=== PATIENT | male | born 1955 | race Asian ===

== ENCOUNTER 2017-01-13 19:59 | Emergency (ER) | payer OTHER, MEDICAID ==
--- NOTE | 2017-01-13 20:10 | EDPHY ---
H & P Source: Patient Exam Limitations: Clinical condition - Personal History Tetanus Vaccine Date: 2012 - Medical/Surgical History Hx Asthma: No Hx Chronic Respiratory Disease: No Hx Diabetes: No Hx Cardiac Disease: No Hx Renal Disease: No Hx Cirrhosis: No Hx Alcoholism: No Hx HIV/AIDS: No Hx Splenectomy or Spleen Trauma: No Other PMH: PMH- epilepsy, HTN. PSH- appy - Social History Smoking Status: Never smoked Time Seen by Provider: 01/13/17 20:06 HPI/ROS: CHIEF COMPLAINT: Altered mental status HISTORY OF PRESENT ILLNESS: The patient presents to the ED with altered mental status. The patient reportedly was found wandering around upper floor of his apartment complex. The patient has a history of developmental delay and seizure disorder. It is uncertain whether the patient had a seizure or not. It is uncertain what the patient is normal neurologic baseline is. In the ED, the patient is confused and certainly appears to be postictal. In reviewing his medications he appears to be on Dilantin, Depakote and possibly Keppra. The patient reportedly lives alone in apartment. REVIEW OF SYSTEMS: A comprehensive 10 point review of systems is unobtainable secondary to altered mental status (Danial Higuera) - Physical Exam Exam: General Appearance: Obese male, no acute distress Eyes: Pupils equal and round no pallor or injection ENT, Mouth: Mucous membranes moist, no obvious tongue bite or abrasion Respiratory: There are no retractions, lungs are clear to auscultation Cardiovascular: Regular rate and rhythm Gastrointestinal: Abdomen is soft and nontender, no masses, bowel sounds normal Neurological: Alert and oriented x1, 5/5 strength all 4 extremities, no gross cranial nerve deficit Skin: Warm and dry, no rashes Musculoskeletal: Neck is supple nontender Extremities: symmetrical, full range of motion (Danial Higuera) Constitutional: Initial Vital Signs Temperature (C) 37 C 01/13/17 20:07 Heart Rate 95 01/13/17 20:07 Respiratory Rate 16 01/13/17 20:07 Blood Pressure 157/91 H 01/13/17 20:07 O2 Sat (%) 98 01/13/17 20:07 O2 Delivery Mode Room Air Allergies/Adverse Reactions: No Known Allergies Allergy (Unverified 01/13/17 20:06) Home Medications: Medication Instructions Recorded Divalproex ER [Depakote ER 500 MG 3 tab PO BID 04/06/12 (*)] Lisinopril/Hctz 10/12.5 mg 1 ea PO DAILY 04/06/12 [Zestoretic/Prinzide 10/12.5MG (*)] Phenytoin Sodium Extended 200 mg PO HS 04/06/12 [Dilantin (*)] Phenytoin Sodium Extended 300 mg PO DAILY10 04/06/12 [Dilantin (*)] Multivitamins [Multivitamin (*)] 1 each PO DAILY 05/20/15 Simvastatin [Zocor] 20 mg PO HS 05/20/15 levETIRAcetam [Keppra 500 mg (*)] 250 mg PO BID 05/20/15 Ibuprofen [Motrin (*)] 400 mg PO Q6 PRN #0 tab 05/23/15 oxyCODONE/APAP 5/325 [Percocet 1 tab PO Q4 PRN #0 tab 05/23/15 5/325 (*)] Medical Decision Making - Diagnostics EKG Interpretation: EKG: Complete interpretation has been separately recorded in the [facility] archive. Summary impression: Sinus tachycardia, rate 101 (Danial Higuera) ED Course/Re-evaluation: The patient presents to the ED with altered mental status and a history of seizure disorder. The patient certainly appears to be postictal. The patient had an IV established. He was placed on a third helper. I reviewed the patient's past medical records. The patient had a normal fingerstick blood glucose prior to arrival. I see no obvious signs of external head trauma. I reviewed the patient's past medical records. The patient was hospitalized in 2014 after mechanical fall in his apartment. The CT scan of the patient's head demonstrates no evidence of obvious intracranial hemorrhage. The patient's laboratory studies are unremarkable. He does have slightly low anticonvulsant levels. I re-evaluated the patient at 9:00 p.m.. His mental status is improving however he still appears to be mildly postictal. The plan will be for continued observation in the ED. The patient returns to his normal neurologic baseline I do feel that he can safely be discharged home. The patient will be turned over to Dr. Shady Batres 9:00 p.m.. (Danial Higuera) 10:15 p.m. the patient is back to his baseline. He is talking. He is eating. He is receiving a Dilantin load. He states that he takes his medications regularly. He has a pill counter on the counter. He is eager to go home and states that he feels completely safe. When his Dilantin load is finished we will discharge him home. He agrees to take his medications faithfully. (Shady Batres) Differential Diagnosis: Partial list of the Differential diagnosis considered include but were not limited to; seizure, status epilepticus and although unlikely based on the history and physical exam, I also considered hemorrhage, trauma, infection. (Shady Batres) - Data Points Laboratory Results: Laboratory Results 01/13/17 20:00 01/13/17 20:00 Medications Given: Discontinued Medications Phenytoin Sodium 1,000 mg/ (Sodium Chloride) 120 mls @ 144 mls/hr IV ONCE ONE Stop: 01/13/17 21:47 Last Admin: 01/13/17 21:26 Dose: 120 mls Departure - Departure Disposition: Home, Routine, Self-Care Clinical Impression: Seizure Condition: Fair Instructions: Epilepsy (ED) Referrals: Jose Brunner DO [Medical Doctor] - As per Instructions
--- NOTE | 2017-01-13 20:14 | CPEKG ---
Heart Rate: 101 RR Interval: 594 P-R Interval: 200 QRSD Interval: 90 QT Interval: 364 QTC Interval: 472 P [place]: 38 QRS [place]: 27 T Wave [place]: 21 EKG Severity - OTHERWISE NORMAL ECG - EKG Impression: SINUS TACHYCARDIA Electronically Signed By: Danial Higuera 13-Jan-2017 20:16:52
[2017-01-13 20:16] LABS: % IMMATURE GRANULYOCYTES 0.2 % (0.0-1.1); ABSOLUTE IMMATURE GRANULOCYTES 0.03 10^3/uL (0.00-0.10); ADD DIFF? NO; ADD MORPH? NO; ADD SCAN? NO; ATYPICAL LYMPHOCYTE FLAG 0 (0-99); FRAGMENT RBC FLAG 0 (0-99); HEMATOCRIT 41.7 % (40.0-51.0); HEMOGLOBIN 14.6 g/dL (13.7-17.5); LEFT SHIFT FLG 0 (0-99); LIPEMIA HEMOLYSIS FLAG 90 (0-99); MEAN CELL HEMOGLOBIN 32.2 pg (27.9-34.1); MEAN CELL VOLUME 91.9 fL (81.5-99.8); PLATELET CLUMPS FLAG 0 (0-99); PLATELET COUNT 190 10^3/uL (150-400); RED BLOOD CELL COUNT 4.54 10^6/uL (4.40-6.38); RED CELL DISTRIBUTION WIDTH 13.3 % (11.5-15.2)
[2017-01-13 20:38] LABS: ANION GAP 15 mEq/L (8-16); CALCIUM 9.4 mg/dL (8.5-10.4); CARBON DIOXIDE 22 mEq/l (22-31); CHLORIDE 100 mEq/L (97-110); CREATININE 0.7 mg/dL (0.7-1.3); GLOMERULAR FILTRATION RATE > 60; GLUCOSE 128 mg/dL (70-100); POTASSIUM 3.4 mEq/L (3.5-5.2); SODIUM 137 mEq/L (134-144)
[2017-01-13] MEDS ORDERED: PHENYTOIN SODIUM 1,000 MG in NS 100 ML IV ONE (20:58)
[2017-01-13 22:46] VITALS: RESP 18
[2017-01-13 23:35] VITALS: BP 136/75; PULSE 92; TEMP 98.1; O2SAT 95
== END 2017-01-13 23:35 | disposition home or self-care (01) ==
LOC: EDUNIT#
DX: G40.909 Epilepsy, unspecified, not intractable, without status epilepticus (principal); I10 Essential (primary) hypertension
CPT/HCPCS: 96365

== ENCOUNTER 2017-05-07 11:55 | Inpatient (IN) | payer OTHER, MEDICAID ==
[2017-05-07] MEDS ORDERED: NS 500 ML IV ONE (11:59)
[2017-05-07] MEDS ORDERED: IOPAMIDOL (ISOVUE-300) 100 ML BTL ONE (12:32)
[2017-05-07 12:39] LABS: COLOR YELLOW; LEUKOCYTE ESTERASE,URINE NEGATIVE (NEGATIVE); NITRITE,URINE NEGATIVE (NEGATIVE)
[2017-05-07 12:40] LABS: MUCUS TRACE /lpf (NONE-1+)
[2017-05-07 13:46] LABS: % IMMATURE GRANULYOCYTES 0.4 % (0.0-1.1); ABSOLUTE IMMATURE GRANULOCYTES 0.04 10^3/uL (0.00-0.10); ADD DIFF? NO; ADD MORPH? NO; ADD SCAN? NO; ATYPICAL LYMPHOCYTE FLAG 0 (0-99); FRAGMENT RBC FLAG 0 (0-99); HEMATOCRIT 27.8 % (40.0-51.0); HEMOGLOBIN 9.5 g/dL (13.7-17.5); LEFT SHIFT FLG 0 (0-99); LIPEMIA HEMOLYSIS FLAG 90 (0-99); MEAN CELL HEMOGLOBIN 32.4 pg (27.9-34.1); MEAN CELL HEMOGLOBIN CONCENTR. 34.2 g/dL (32.4-36.7); MEAN CELL VOLUME 94.9 fL (81.5-99.8); MEAN PLATELET VOLUME 12.9 fL (8.7-11.7); PLATELET CLUMPS FLAG 0 (0-99); PLATELET COUNT 123 10^3/uL (150-400); RED BLOOD CELL COUNT 2.93 10^6/uL (4.40-6.38); RED CELL DISTRIBUTION WIDTH 13.8 % (11.5-15.2)
[2017-05-07 14:12] LABS: APTT 29.8 SEC (23.0-38.0); INR 1.32 (0.83-1.16); PROTIME(PATIENT) 16.6 SEC (12.0-15.0)
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
[2017-05-07 14:25] LABS: HEMATOCRIT 39.1 % (40.0-51.0); HEMOGLOBIN 14.2 g/dL (13.7-17.5)
[2017-05-07 15:17] LABS: ANION GAP 14 mEq/L (8-16); CALCIUM 9.6 mg/dL (8.5-10.4); CARBON DIOXIDE 23 mEq/l (22-31); CHLORIDE 104 mEq/L (97-110); CREATININE 0.7 mg/dL (0.7-1.3); ETHANOL SERUM < 10 mg/dL (0-10); GLOMERULAR FILTRATION RATE > 60; GLUCOSE 99 mg/dL (70-100); SODIUM 141 mEq/L (134-144)
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
[2017-05-07] MEDS ORDERED: ACETAMINOPHEN 325 MG TAB PO PRN (17:33)
[2017-05-07] MEDS ORDERED: ONDANSETRON DISINTEGRATING 4 MG TAB PO PRN (17:33)
[2017-05-07] MEDS ORDERED: ONDANSETRON 4 MG/2 ML VIAL IVP PRN (17:33)
[2017-05-07] MEDS ORDERED: PHENYTOIN 100 MG/4 ML UDL PO ONE (17:37)
[2017-05-07] MEDS ORDERED: DIVALPROEX NA 250 MG TAB PO ONE (17:37)
[2017-05-07] MEDS ORDERED: NS 1,000 ML IV SCH (17:45)
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
[2017-05-07 19:26] LABS: CK-MB INTERPRETATION NEGATIVE (NEGATIVE)
[2017-05-07 19:41] LABS: CREATINE KINASE-MB FRACTION 4.63 ng/mL (0.00-4.55)
--- NOTE | 2017-05-07 19:50 | PDMN ---
Medical Necessity Medical necessity: C/M review: est. > 2 MN LOS for eval and TX of acute seizure , liver hemangioma, subtheraputic level of seizure medications requiring planned Trauma consult, IV fluids, ongoing cardiac monitoring, seizure medications adjustment, comorbid hx patient found down just prior to this admission, seizure disorder, hypertension, developmental delay per H/P.
[2017-05-07] MEDS ORDERED: NON-FORMULARY NEW DRUG (Simvastatin [Zocor] 20 MG) PO SCH (21:00)
[2017-05-07] MEDS: PHENYTOIN SODIUM EXTENDED 100 MG CAP PO SCH (22:38)
[2017-05-07] MEDS: ATORVASTATIN CALCIUM 10 MG TAB PO SCH (22:38)
[2017-05-07] MEDS: levETIRAcetam 250 MG TAB PO SCH (22:38)
[2017-05-07] MEDS: DIVALPROEX ER 500 MG TAB PO SCH (22:39)
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
[2017-05-08 04:36] LABS: % IMMATURE GRANULYOCYTES 0.4 % (0.0-1.1); ABSOLUTE IMMATURE GRANULOCYTES 0.04 10^3/uL (0.00-0.10); ADD DIFF? NO; ADD MORPH? NO; ADD SCAN? NO; ATYPICAL LYMPHOCYTE FLAG 0 (0-99); FRAGMENT RBC FLAG 0 (0-99); HEMATOCRIT 37.9 % (40.0-51.0); HEMOGLOBIN 13.3 g/dL (13.7-17.5); LEFT SHIFT FLG 0 (0-99); LIPEMIA HEMOLYSIS FLAG 90 (0-99); MEAN CELL HEMOGLOBIN 32.8 pg (27.9-34.1); MEAN CELL HEMOGLOBIN CONCENTR. 35.1 g/dL (32.4-36.7); MEAN CELL VOLUME 93.3 fL (81.5-99.8); MEAN PLATELET VOLUME 12.8 fL (8.7-11.7); PLATELET CLUMPS FLAG 0 (0-99); PLATELET COUNT 170 10^3/uL (150-400); RED BLOOD CELL COUNT 4.06 10^6/uL (4.40-6.38)
[2017-05-08 04:53] LABS: ANION GAP 12 mEq/L (8-16); CALCIUM 8.8 mg/dL (8.5-10.4); CARBON DIOXIDE 22 mEq/l (22-31); CHLORIDE 111 mEq/L (97-110); CREATININE 0.7 mg/dL (0.7-1.3); GLOMERULAR FILTRATION RATE > 60; GLUCOSE 101 mg/dL (70-100); POTASSIUM 3.7 mEq/L (3.5-5.2); SODIUM 145 mEq/L (134-144)
[2017-05-08] MEDS: levETIRAcetam 250 MG TAB PO SCH ×2 (09:07→20:51)
[2017-05-08] MEDS: ENOXAPARIN 40 MG/0.4 ML SYR SC SCH (09:07)
[2017-05-08] MEDS: LISINOPRIL 5 MG TAB PO SCH (09:08)
[2017-05-08] MEDS: PHENYTOIN SODIUM EXTENDED 100 MG CAP PO SCH ×2 (09:08→20:51)
[2017-05-08] MEDS: DIVALPROEX ER 500 MG TAB PO SCH ×2 (09:08→20:51)
--- NOTE | 2017-05-08 09:44 | TRAUMAPN ---
Assessment/Plan: PAD#1 05/08/2017 Assessment: Tertiary exam - c/o pain in right forearm, mid shaft. His communication skills are suboptimal and he cannot describe it further. Doubt fracture and suspect contusion. I agree with Dr. Morales that his mental function does not seem compatible with his reported prior functional status. Tox screen is negative for substances of abuse. Plan: Right forearm xray, MRI, speech evaluation for post concussive issues Subjective: response to most questions is "YES" even if that is not an appropriate option for an answer Objective: Vital Signs Temp Pulse Resp BP Pulse Ox 37.1 C 83 16 135/69 H 97 05/08/17 08:00 05/08/17 08:00 05/08/17 08:00 05/08/17 09:08 05/08/17 08:00 Laboratory Results 05/08/17 04:18 05/08/17 04:18 05/07/17 05/08/17 05/09/17 05:59 05:59 05:59 Intake Total 1250 Output Total 3300 Balance -2050 PT 16.6 SEC (12.0-15.0) H 05/07/17 13:35 INR 1.32 (0.83-1.16) H 05/07/17 13:35 Physical Exam - Physical Exam General Appearance: WD/WN, alert, no apparent distress Neck: non-tender, full range of motion, supple Respiratory: chest non-tender, lungs clear, normal breath sounds Cardiac/Chest: regular rate, rhythm, other (stable to AP and lateral compression ) Abdomen: normal bowel sounds, non-tender, soft (obese) Male Genitalia: deferred Rectal: deferred Back: Normal inspection Skin: normal color, warm/dry Extremities: other (tender over righ mid forearm) Neuro/Psych: no motor/sensory deficits, alert Time Spent w/Patient (minutes): 25
--- NOTE | 2017-05-08 10:47 | HOSPPROG ---
Hospitalist Progress Note Assessment/Plan: DIAGNOSES: -acute encephalopathy uncertain etiology (new problem with further workup) -diff dx includes post concussive, post ictal (though should have cleared by now), unidentified metabolic causes -Lab abnormalities: increase in Hg and Na overnight for no apparent reason -possible causes include lab error, fluid shift would seem unlikely; ? if he is dehydrated or has anemia -failure to thive at home -multiple abraisions, ? due to sz, trauma or otherwise -mild rhabdomyolysis (new problem identified with further assessment for resolution) -incidentally identified liver lesion on CT scan -seizure disorder -levels of meds low on arrival but given shift in other lab values question accuracy of these labs also -chronic disability I do NOT think he is at his baseline mentation. He is not functioning nearly well enough to be living alone, and appears to me to have an acute delirium. PLANS: I have reviewed this case in detail with Dr Lauren today Will review w oncall neurologist to try to determine baseline mental functioning MEDICAL OFFICE ASSISTANT eval and treat for possible post concussive syndrome MRI of the brain ordered by Dr. Lauren to look for any evidence of shear injuries repeat all chemistries and Hg, including sz med levels follow hydration closely continue to eval for any metabolic causes SUBJECTIVE: States he feels a little better but he is actually quite confused and limited in communication and I cannot feel confident that this is reliably accurate. I cannot get any other information from him at this time OBJECTIVE Vitals reviewed: Stable without fever Exam: Awake but lethargic and slightly groggy, does attempt to answer questions but does so very slowly after long delays, and other than saying that he feels a little better the only thing I can get him to say is yes (at times apparently in accurately) and "my neurosurgeon" by which he appears to be attempting to refer to Dr. Purcell his neurologist. He is unable to communicate in any effective way. I do not see any focal weakness but he seems to have severe generalized weakness even to the point of having trouble holding his head up, however he is feeding himself slowly and I do not hear him cough or throat clear. He is not able to participate in strength testing to really determine his strength accurately. No tremor. I cannot tell if he knows where he is or why or what time it is any does not tell me his name. skin warm dry color ok resps not labored lungs clear BSs heart regular abd soft nondistended nontender, bowel sounds present limbs warm, no edema iv site ok Laboratory data: Notably his sodium has increased from 140-145 over night and his hemoglobin increased from 9-13 overnight which seems unlikely to be accurate. CPK elevated at 500 I reviewed the reports from his multiple CT scans and there are no significant findings to explain his acute symptoms, but an unexplained hypodense lesion in the liver. I reviewed this study and on the images I see this lesion which appears potentially consistent with hemangioma but could not rule out other important causes. It is a solitary lesion on my review Objective: Vital Signs Temp Pulse Resp BP Pulse Ox 37.1 C 83 16 135/69 H 97 05/08/17 08:00 05/08/17 08:00 05/08/17 08:00 05/08/17 09:08 05/08/17 08:00 Laboratory Results 05/08/17 04:18 05/08/17 04:18 05/07/17 05/08/17 05/09/17 06:59 06:59 06:59 Intake Total 1250 Output Total 3300 Balance -2050 PT 16.6 SEC (12.0-15.0) H 05/07/17 13:35 INR 1.32 (0.83-1.16) H 05/07/17 13:35 - Time Spent With Patient Time Spent with Patient: greater than 35 minutes Time Spent with Patient: Greater than 35 minutes spent on this patients care, greater than 50% of time spent counseling, educating, and coordinating care regarding the above mentioned plan. ICD10 Worksheet Patient Problems: Problems Problem Status Onset Multiple abrasions Acute Multiple contusions Acute Seizure Acute Closed fracture of upper end of humerus Active Abrasion Acute Closed fracture of medial condyle of distal end of right femur Acute Frequent falls Acute Head injury Acute
--- NOTE | 2017-05-08 16:22 | ASMTCMCOM ---
CM Note CM Note Notes: Pt still not likely not at baseline mentation; brain MRI pending and hospitalist Andrew note indicates there will be a consult with neurologist to assist w baseline mentation. PT rec SNF, BATTERY SERVICE TECHNICIAN rec C vs. SNF. RN Sarahi reports no concerning behaviors/serious symptoms, pt has a flat affect and responds yes/no. Pt PASRR triggers due to developmental disability and PASRR was faxed to [facility] today. Referral sent to [facility] since pt was there in 2014. Triggered PASRR faxed to [facility] today Received a voicemail from [employer] ([phone]) reporting pt dog is at [employer] and can stay there for at least 5 days. They made a note pt cannot pay and he will not be sent to collections so pt should not worry about charges. They will re-release dog when pt out of hospital. D/c plan: SNF if pt does not clear to safely d/c to community with any current and/or new supportive services. Date Signed: 05/08/2017 04:22 PM Electronically Signed By:PUMA Brown
[2017-05-08] MEDS: ATORVASTATIN CALCIUM 10 MG TAB PO SCH (20:51)
[2017-05-09] MEDS: LISINOPRIL 5 MG TAB PO SCH (09:26)
[2017-05-09] MEDS: DIVALPROEX ER 500 MG TAB PO SCH ×2 (09:27→21:50)
[2017-05-09] MEDS: levETIRAcetam 250 MG TAB PO SCH ×2 (09:27→21:51)
[2017-05-09] MEDS: PHENYTOIN SODIUM EXTENDED 100 MG CAP PO SCH ×2 (09:27→21:51)
[2017-05-09] MEDS: ENOXAPARIN 40 MG/0.4 ML SYR SC SCH (09:29)
--- NOTE | 2017-05-09 17:18 | HOSPPROG ---
Hospitalist Progress Note Assessment/Plan: DIAGNOSES: -acute encephalopathy uncertain etiology (new problem with further workup) -diff dx includes post concussive, post ictal (though should have cleared by now), unidentified metabolic causes; his low levels of seizure medicines upon arrival would make seizure more likely -longstanding disabilities with some expressive aphasia, other specifics of disabilities and extend of disability and baseline are unclear to me at this time -Lab abnormalities: increase in Hg and Na overnight for no apparent reason -possible causes include lab error, fluid shift would seem unlikely; ? if he is dehydrated or has anemia -failure to thive at home -multiple abraisions, ? due to sz, trauma or otherwise -mild rhabdomyolysis could be due to seizure or to what ever injury causes abrasions -incidentally identified liver lesion on CT scan may need further assessment though the patient unable to cooperate with MRI scanning -seizure disorder -levels of meds low on arrival but given shift in other lab values question accuracy of these labs also -chronic disability Today the patient is notably more alert and interactive, but I still do not believe he is back to his baseline. However his baseline is not really clear to me and will need to trying contact his caregivers and his power of conveyor feeder offbearer to get more information, they are unavailable to us so far today. He does have apparently some expressive aphasia chronically, and that is certainly a severe disability right now. However he clearly is having significant comprehensive issues during my conversations and is well with the speech language pathologist during their cognitive eval. These disabilities at this time seem much too severe for him to have been living like this at home if this was his baseline. I do know that he lives alone but has partial help from a JOB RECRUITER and some other visits on a scheduled basis but I do not know the extent of this care or the frequency. At this point it seems clear that the patient will need for the moment any way more supervision and we are looking at possible need for custodial facility or increased home care. I certainly would want him to go back to living by himself in this condition. I reviewed with the pillowcase cleaner that we need to get in touch with his [id number] and his caregivers and get much more detailed information about his daily baseline and will kind of help he has needed and been given. He certainly is at this time not able to manage medications on his own on a daily basis and at a minimum will need a JOB RECRUITER or other professional to be giving him his medicines daily. We need more assessment for ambulation safety at this time. If we are going to get him to a custodial facility will need his power of attorneys engagement in that process. In terms of the cause of his acute worsening and failure to thrive, at this point unfortunate there is no clear indication of what that would be. PLANS: Continue SDE eval and treat acute encephalopathy with chronic disabilities PT and OT evaluation repeat all chemistries and Hg, including anti epileptic med levels follow hydration closely Case management discharge planning efforts as detailed above SUBJECTIVE: States he feels a little better but he is actually quite confused and limited in communication and I cannot feel confident that this is reliably accurate. I cannot get any other information from him at this time OBJECTIVE Vitals reviewed: Stable without fever Exam: Awake but lethargic and slightly groggy, does attempt to answer questions but does so very slowly after long delays, and other than saying that he feels a little better the only thing I can get him to say is yes (at times apparently in accurately) and "my neurosurgeon" by which he appears to be attempting to refer to Dr. Purcell his neurologist. He is unable to communicate in any effective way. I do not see any focal weakness but he seems to have severe generalized weakness even to the point of having trouble holding his head up, however he is feeding himself slowly and I do not hear him cough or throat clear. He is not able to participate in strength testing to really determine his strength accurately. No tremor. I cannot tell if he knows where he is or why or what time it is any does not tell me his name. skin warm dry color ok resps not labored lungs clear BSs heart regular abd soft nondistended nontender, bowel sounds present limbs warm, no edema iv site ok Laboratory data: Notably his sodium has increased from 140-145 over night and his hemoglobin increased from 9-13 overnight which seems unlikely to be accurate. CPK elevated at 500 I reviewed MRI images with Dr. Partida today. The patient had a lot of motion artifact which is not surprising so this study is fairly compromised. There is no evidence of an acute abnormality but it might be hard to rule out smaller lesions. There is certainly some chronic atrophy. Objective: Vital Signs Temp Pulse Resp BP Pulse Ox 36.7 C 95 18 114/91 H 93 12/10/17 15:09 05/09/17 15:09 05/09/17 15:09 05/09/17 15:09 05/09/17 15:09 Laboratory Results 05/08/17 04:18 05/08/17 04:18 05/08/17 05/09/17 05/10/17 06:59 06:59 06:59 Intake Total 1250 750 500 Output Total 3300 1400 Balance -2050 -650 500 PT 16.6 SEC (12.0-15.0) H 05/07/17 13:35 INR 1.32 (0.83-1.16) H 05/07/17 13:35 - Time Spent With Patient Time Spent with Patient: greater than 35 minutes Time Spent with Patient: Greater than 35 minutes spent on this patients care, greater than 50% of time spent counseling, educating, and coordinating care regarding the above mentioned plan. ICD10 Worksheet Patient Problems: Problems Problem Status Onset Multiple abrasions Acute Multiple contusions Acute Seizure Acute Closed fracture of upper end of humerus Active Abrasion Acute Closed fracture of medial condyle of distal end of right femur Acute Frequent falls Acute Head injury Acute
--- NOTE | 2017-05-09 17:38 | ASMTCMCOM ---
CM Note CM Note Notes: Please see ED CM note from 05/07 for background info and contact #'s. Spoke to Margoth at [facility] as we are pursuing SNF placement and he has been there in past. Margoth will likely be on-site tomorrow and they will continue to evaluate. CM discussed w/Dr Morales today; we will need to find out if pt has guardian as we plan for dc. Perhaps we can contact his RN on Wednesday at [facility] ([phone]) to inquire about a guardian (if pt has one). CM should also ask if pt's dog is service dog. Dr Morales will follow up with [employer] regarding pt's dog which is currently residing there while pt in hospital. CM will follow. Date Signed: 05/09/2017 05:38 PM Electronically Signed By:Winifred Martin RN
[2017-05-09] MEDS: ATORVASTATIN CALCIUM 10 MG TAB PO SCH (21:50)
[2017-05-10 09:30] LABS: % IMMATURE GRANULYOCYTES 0.3 % (0.0-1.1); ABSOLUTE IMMATURE GRANULOCYTES 0.03 10^3/uL (0.00-0.10); ADD DIFF? NO; ADD MORPH? NO; ADD SCAN? NO; ATYPICAL LYMPHOCYTE FLAG 0 (0-99); FRAGMENT RBC FLAG 0 (0-99); HEMATOCRIT 45.9 % (40.0-51.0); HEMOGLOBIN 15.5 g/dL (13.7-17.5); LEFT SHIFT FLG 0 (0-99); LIPEMIA HEMOLYSIS FLAG 90 (0-99); MEAN CELL HEMOGLOBIN 32.1 pg (27.9-34.1); MEAN CELL HEMOGLOBIN CONCENTR. 33.8 g/dL (32.4-36.7); MEAN PLATELET VOLUME 12.8 fL (8.7-11.7); PLATELET CLUMPS FLAG 0 (0-99); PLATELET COUNT 166 10^3/uL (150-400); RED BLOOD CELL COUNT 4.83 10^6/uL (4.40-6.38); RED CELL DISTRIBUTION WIDTH 13.4 % (11.5-15.2)
[2017-05-10 10:00] LABS: ANION GAP 15 mEq/L (8-16); CALCIUM 9.8 mg/dL (8.5-10.4); CARBON DIOXIDE 25 mEq/l (22-31); CHLORIDE 104 mEq/L (97-110); CREATININE 0.7 mg/dL (0.7-1.3); GLOMERULAR FILTRATION RATE > 60; GLUCOSE 167 mg/dL (70-100); SODIUM 144 mEq/L (134-144)
[2017-05-10] MEDS: ENOXAPARIN 40 MG/0.4 ML SYR SC SCH (10:10)
[2017-05-10] MEDS: LISINOPRIL 5 MG TAB PO SCH (10:10)
[2017-05-10] MEDS: levETIRAcetam 250 MG TAB PO SCH ×2 (10:10→20:28)
[2017-05-10] MEDS: DIVALPROEX ER 500 MG TAB PO SCH ×2 (10:17→20:28)
[2017-05-10] MEDS: PHENYTOIN SODIUM EXTENDED 100 MG CAP PO SCH ×2 (10:18→20:29)
--- NOTE | 2017-05-10 10:19 | HOSPPROG ---
Hospitalist Progress Note Assessment/Plan: Patient is a 62-year-old gentleman who has a history of developmental delay and seizure disorder. He presented the emergency department covered in bruises. Today is my 1st encounter with the patient. Chart reviewed. Discussed his case with Dr. Morales who evaluated the patient yesterday. Dr. Morales reviewed his care with his primary care neurologist. The patient is not at his baseline. Concern for receptive and expressive aphasia. Possible concern for stroke. MRI did not show bleed. But the patient was unable to lie still for this procedure: in the meantime will start him on aspirin therapy and check a lipid level. Will ask neurology to further evaluate. * acute encephalopathy -if it was postictal from a seizure it would likely clear by now -will ask neurology to see -spoke w PT and patient was interactive with them -he was very quiet for me, would follow commands but didn't speak much * Mild rhabdomyolysis -recheck in a.m. * seizure disorder -cont home medications (Keppra) * liver lesion noted on CT scan -will need further follow-up * developmentally delayed with long-standing disabilities including expressive aphasia * failure to thrive * chronic disability -Dr. Morales is attempting to get a hold of the [employer] to see if they are taking care of his service dog * multiple abrasions and bruises *DVT prophylaxis: LMWH Subjective: Carl only nods his head for me. Objective: Vital Signs Temp Pulse Resp BP Pulse Ox 36.9 C 73 16 150/86 H 98 05/10/17 07:22 05/10/17 07:22 05/10/17 07:22 05/10/17 10:10 05/10/17 07:22 Laboratory Results 05/10/17 09:15 05/10/17 09:15 05/09/17 05/10/17 05/11/17 05:59 05:59 05:59 Intake Total 750 850 350 Output Total 1400 1650 Balance -650 -800 350 PT 16.6 SEC (12.0-15.0) H 05/07/17 13:35 INR 1.32 (0.83-1.16) H 05/07/17 13:35 - Physical Exam Constitutional: no apparent distress, appears nourished Eyes: PERRL Ears, Nose, Mouth, Throat: hearing normal Cardiovascular: regular rate and rhythym Respiratory: no respiratory distress Skin: warm Musculoskeletal: other (moves all extremities o command) Neurologic: other (alert but not talking to me), No facial droop Psychiatric: other (not very talkative) ICD10 Worksheet Patient Problems: Problems Problem Status Onset Multiple abrasions Acute Multiple contusions Acute Seizure Acute Closed fracture of upper end of humerus Active Abrasion Acute Closed fracture of medial condyle of distal end of right femur Acute Frequent falls Acute Head injury Acute
[2017-05-10 11:29] LABS: CHOLESTEROL 182 mg/dL (140-220); CHOLESTEROL/HDL RATIO 3.71 RATIO (1.00-4.97); HIGH DENSITY LIPOPROTEIN 49 mg/dL (40-65); LDL/HDL RATIO 1.67 RATIO (1.00-3.64); LOW DENSITY LIPOPROTEIN 82 mg/dL (80-100); NON-HIGH DENSITY LIPOPROTEIN 133 mg/dL (90-129); TRIGLYCERIDE 258 mg/dL (40-150); VERY LOW DENSITY LIPOPROTEINS 51 mg/dL (8-25)
[2017-05-10] MEDS: ASPIRIN EC 81 MG TAB PO SCH (11:48)
--- NOTE | 2017-05-10 15:32 | NEUROPROG ---
Assessment: I have been asked by Chantel Gray NP of the hospitalist service to consult with Mr. Means regarding language dysfunction after being admitted 05/07/17. He was admitted through the ED after presenting with a number of injuries of unknown origin. He has a background of epilepsy and persistent pervasive cognitive delay. He is followed by Dr. Purcell for his epilepsy. I have discussed the case with Dr. Purcell in an effort to alvarado his baseline functional status. Dr. Purcell relays that Mr. Means lives independently, though has a childlike affect and reduced intellectual function. The events leading to admission are cryptogenic. Mr. Means apparently presented to the front office medical assistant of his apartment complex the day of admission seemingly confused with multiple injuries. Trauma survey did not reveal any major injury. There was concern he may have had a breakthrough seizure. He does have home health assistance who manages his medication box. There has been no clear indication of medication compliance. However, on admission, he remained confused. He has intermittently been nonverbal, but able to nod "yes" and "no" to certain staff. There was concern for a possible stroke given his language dysfunction and an MRI brain wo was done. While the MRI did have some motion artifact, my review shows the DWI and FLAIR sequences to be quite clear and without evidence of acute ischemia. I don't appreciate any other concerning signal changes. I was able to interview him today. He was watching TV and appropriately conversant with me. He indicated he is a patient of Dr. Purcell, and that he was watching one of his favorite TV shows, [employer]. He notes he does not know what happened and he can't recall being transported here. He notes he gets help with his medication at home, but takes it as prescribed every day. He feels like his usual self now and has no complaints. On exam, his vitals were reviewed in the EMR. He is well developed and well nourished. He is oriented to all spheres. Speech is nondysarthric and without any language dysfunction. He attends to both sides. He is amnestic of events leading to hospitalization, but otherwise his gross memory seems preserved. His mood is euthymic. Cranial nerve function is preserved. His motor function shows him to have normal bulk/tone, no adventitial movements and full power throughout. His sensory function is intact to all modalities and without extinction. His coordination with FN/TF is intact and Som preserved. He does wobble with Romberg. His plantar responses are flexor and there is not clonus. His ankle jerks are absent, but rest of DTRs are 2/4. His gait is normal and steady. Overall, I suspect his mutism to certain staff is more behavioral. He seems to be functioning normally for me at this time. No indication his prior mute episodes were seizures, as he was nodding appropriately and without any other stigmata of seizure, such as forced gaze, eye jerking, automatisms, etc... For now, I would keep him on his prescribed antiseizure drug regimen, which is listed accurately in the MAR. Continue with seizure precautions. He is not driving. Discussed with Chantel Gray NP. I think he can be discharged when medically cleared by the primary team. Primary team is exploring medication compliance issues with his home health staff. Will sign off. Please recall PRN. 70 minutes in direct patient care activities on the floor, including case discussion with primary team and his primary neurologist, outpatient records review, data review, imaging review, and [id number] time with the patient. Objective: Vital Signs Temp Pulse Resp BP Pulse Ox 36.8 C 86 18 139/84 H 95 05/10/17 11:36 05/10/17 11:36 05/10/17 11:36 05/10/17 11:36 05/10/17 11:36 Laboratory Results 05/10/17 09:15 05/10/17 09:15 05/09/17 05/10/17 05/11/17 05:59 05:59 05:59 Intake Total 750 850 900 Output Total 1400 1650 1000 Balance -650 -800 -100 PT 16.6 SEC (12.0-15.0) H 05/07/17 13:35 INR 1.32 (0.83-1.16) H 05/07/17 13:35 Allergies/Adverse Reactions: No Known Allergies Allergy (Unverified 01/13/17 20:06)
--- NOTE | 2017-05-10 16:54 | ASMTCMCOM ---
CM Note CM Note Notes: Spoke with Dr. Morales to let him know patient's dog is not a service dog so he will need to pursue foster placement since [facility] [employer] only keeps them [address] Morales requested an order be placed for inpatient rehab. Spoke with Chantel Gray NP who will place the order. Dr. Morales suspects patient has had a stroke.Awaiting results for inpatient rehab eval to determine d/c plan. CM will follow. Date Signed: 05/10/2017 04:54 PM Electronically Signed By:Allyssa Hernadez LCSW
[2017-05-10] MEDS: ATORVASTATIN CALCIUM 10 MG TAB PO SCH (20:27)
[2017-05-11] MEDS: ENOXAPARIN 40 MG/0.4 ML SYR SC SCH (08:38)
[2017-05-11] MEDS: LISINOPRIL 5 MG TAB PO SCH (08:39)
[2017-05-11] MEDS: DIVALPROEX ER 500 MG TAB PO SCH ×2 (08:39→20:40)
[2017-05-11] MEDS: levETIRAcetam 250 MG TAB PO SCH ×2 (08:39→20:40)
[2017-05-11] MEDS: ASPIRIN EC 81 MG TAB PO SCH (08:41)
[2017-05-11] MEDS: PHENYTOIN SODIUM EXTENDED 100 MG CAP PO SCH ×2 (09:24→20:41)
--- NOTE | 2017-05-11 14:10 | HOSPPROG ---
Hospitalist Progress Note Assessment/Plan: Patient is a 62-year-old gentleman who has a history of developmental delay and seizure disorder. He presented the emergency department covered in bruises. Discussed his care with Dr Beckham yesterday who evaluated the MRI and did not see anything acute. * acute encephalopathy -likely back at his baseline -unclear of what happened and why he is bruised * Mild rhabdomyolysis * seizure disorder -cont home medications (Keppra) * liver lesion noted on CT scan -will need further follow-up * developmentally delayed with long-standing disabilities including expressive aphasia * chronic disability -has a service dog/ hopefully, is at [employer] * multiple abrasions and bruises -he doesn't know how he got them *DVT prophylaxis: LMWH *Plan: reviewed his care with physical therapy who commented he is likely at his baseline in regards to mobility. Recommendation is for more care at his home with closer monitoring. Discussing w CM. Hopefully can go home soon. Subjective: Vick said he is fine. Objective: Vital Signs Temp Pulse Resp BP Pulse Ox 36.7 C 96 18 135/83 H 98 05/11/17 11:33 05/11/17 11:33 05/11/17 11:33 05/11/17 11:33 05/11/17 11:33 Laboratory Results 05/10/17 09:15 05/10/17 09:15 05/10/17 05/11/17 05/12/17 05:59 05:59 05:59 Intake Total 850 1450 380 Output Total 1650 1451 Balance -800 -1 380 PT 16.6 SEC (12.0-15.0) H 05/07/17 13:35 INR 1.32 (0.83-1.16) H 05/07/17 13:35 - Physical Exam Constitutional: no apparent distress, chronically ill appearing, obese Eyes: PERRL Ears, Nose, Mouth, Throat: hearing normal Cardiovascular: regular rate and rhythym Respiratory: no respiratory distress Skin: other (scab on right knee area, ecchymosis on right forearm area) Musculoskeletal: generalized weakness Neurologic: other (alert and answers mainly with 'yes' and 'no' but is appropriate with these responses) Psychiatric: interacting appropriately ICD10 Worksheet Patient Problems: Problems Problem Status Onset Multiple abrasions Acute Multiple contusions Acute Seizure Acute Closed fracture of upper end of humerus Active Abrasion Acute Closed fracture of medial condyle of distal end of right femur Acute Frequent falls Acute Head injury Acute
--- NOTE | 2017-05-11 16:42 | ASMTCMCOM ---
CM Note CM Note Notes: Inpatient rehab states patient needs SNF placement. Spoke with Mary Lou at [facility] who will visit the patient tomorrow. Also made 2 other referrals in case [facility] does not have a bed. Spoke with patient who is willing to do the rehab but is worried about his dog. The [employer] will keep his dog for [address] Morales is seeking a foster placement for patient's dog while he completes his rehab. Called Ambrose Gannon ([phone]), instant powder supervisor with [facility], to coordinate with her. Ambrose has been advocating for patient and following his care. Placement of patient hinges on finding accomodations for his dog who is extremely important to him. CM will follow. Date Signed: 05/11/2017 04:41 PM Electronically Signed By:Allyssa Hernadez LCSW
[2017-05-11 18:28] LABS: DILANTIN TOTAL 5.3 mcg/mL
[2017-05-11] MEDS: ATORVASTATIN CALCIUM 10 MG TAB PO SCH (20:40)
[2017-05-12] MEDS: LISINOPRIL 5 MG TAB PO SCH (08:25)
[2017-05-12] MEDS: ASPIRIN EC 81 MG TAB PO SCH (08:25)
[2017-05-12] MEDS: ENOXAPARIN 40 MG/0.4 ML SYR SC SCH (08:25)
[2017-05-12] MEDS: DIVALPROEX ER 500 MG TAB PO SCH ×2 (08:25→20:02)
[2017-05-12] MEDS: levETIRAcetam 250 MG TAB PO SCH ×2 (08:25→20:02)
[2017-05-12] MEDS: PHENYTOIN SODIUM EXTENDED 100 MG CAP PO SCH ×2 (08:26→20:02)
--- NOTE | 2017-05-12 16:22 | HOSPPROG ---
Hospitalist Progress Note Assessment/Plan: Patient is a 62-year-old gentleman who has a history of developmental delay and seizure disorder. He presented the emergency department covered in bruises * acute encephalopathy/ resolved -likely back at his baseline -patient says he thinks he forgot to take his seizure meds * Mild rhabdomyolysis * seizure disorder -cont home medications (Keppra) * liver lesion noted on CT scan -will need further follow-up * developmentally delayed with long-standing disabilities including expressive aphasia * chronic disability -has a service dog at the [employer] * multiple abrasions and bruises -he doesn't know how he got them *DVT prophylaxis: LMWH *Plan: plan is to dc in the morning with increased services. [facility] with [facility], he will have home PT, OT, TECHNICAL PUBLICATIONS WRITER, and someone to help keep his home clean. Patient gets around by using the bus. Subjective: Vick is feeling fine, wants to go home. Objective: Vital Signs Temp Pulse Resp BP Pulse Ox 36.7 C 93 17 129/83 H 95 05/12/17 11:44 05/12/17 11:44 05/12/17 11:44 05/12/17 11:44 05/12/17 11:44 Laboratory Results 05/10/17 09:15 05/10/17 09:15 05/11/17 05/12/17 05/13/17 05:59 05:59 05:59 Intake Total 1450 1030 640 Output Total 1451 500 Balance -1 1030 140 PT 16.6 SEC (12.0-15.0) H 05/07/17 13:35 INR 1.32 (0.83-1.16) H 05/07/17 13:35 - Physical Exam Constitutional: appears nourished, not in pain, obese Eyes: PERRL Ears, Nose, Mouth, Throat: hearing normal Respiratory: no respiratory distress Gastrointestinal: normoactive bowel sounds Skin: warm Musculoskeletal: full muscle strength Neurologic: other (alert, doesn't initiate talking, but answers questions appropriately) Psychiatric: interacting appropriately, poor insight ICD10 Worksheet Patient Problems: Problems Problem Status Onset Multiple abrasions Acute Multiple contusions Acute Seizure Acute Closed fracture of upper end of humerus Active Abrasion Acute Closed fracture of medial condyle of distal end of right femur Acute Frequent falls Acute Head injury Acute
--- NOTE | 2017-05-12 17:21 | ASMTCMCOM ---
CM Note CM Note Notes: Case new to this SWer. This SWer was asked to continue care from previous complex care SWer. SWer learned from hospitalist that Pt. can be d/c'ed home if has enough supports in place. SWer contacted Asia Reza at [facility] who is Pt's HCBS longterm care Medicaid outpatient case manager. Asia states she can begin new homemaker services (Pt. began to decline services in 07/2016) since Pt. states he wants it. Hospitalist will d/c with homecare for RN, PT, OT, and CHEMIST PHYSICAL. SWer called [facility] and left a message for Ambrose SchererGannon to resume homecare RN and ask to add PT, OT, and CHEMIST PHYSICAL services. Pt. states he will now accept services. Per report, APS has been involved and is not following case anymore. Colleage RN CM called [employer] who is watching Pt's dog, Slayton. Will keep Slayton one more night. Plan tomorrow to d/c Pt. home with homecare, homemaker services, and will coordinate to make sure that Pt. is home before dog is brought by police or animal control. SW to follow. Date Signed: 05/12/2017 05:21 PM Electronically Signed By:Martina Martins LCSW
[2017-05-12] MEDS: ATORVASTATIN CALCIUM 10 MG TAB PO SCH (20:02)
[2017-05-13 07:52] VITALS: RESP 12
--- NOTE | 2017-05-13 09:18 | CPEKG ---
Heart Rate: 106 RR Interval: 566 P-R Interval: 164 QRSD Interval: 88 QT Interval: 356 QTC Interval: 473 P [place]: 49 QRS [place]: 39 T Wave [place]: 16 EKG Severity - OTHERWISE NORMAL ECG - EKG Impression: SINUS TACHYCARDIA Electronically Signed By: Izabela Baron 13-May-2017 10:39:05
[2017-05-13] MEDS: ASPIRIN EC 81 MG TAB PO SCH (09:24)
[2017-05-13] MEDS: PHENYTOIN SODIUM EXTENDED 100 MG CAP PO SCH (09:24)
[2017-05-13] MEDS: levETIRAcetam 250 MG TAB PO SCH (09:25)
[2017-05-13] MEDS: LISINOPRIL 5 MG TAB PO SCH (09:25)
[2017-05-13] MEDS: ENOXAPARIN 40 MG/0.4 ML SYR SC SCH (09:25)
[2017-05-13] MEDS: DIVALPROEX ER 500 MG TAB PO SCH (09:25)
--- NOTE | 2017-05-13 09:56 | HOSPPROG ---
Hospitalist Progress Note Assessment/Plan: Patient is a 62-year-old gentleman who has a history of developmental delay and seizure disorder. He presented the emergency department covered in bruises * acute encephalopathy/ resolved -likely back at his baseline -patient says he thinks he forgot to take his seizure meds * Mild rhabdomyolysis * seizure disorder -cont home medications (Keppra) * liver lesion noted on CT scan -will need further follow-up * developmentally delayed with long-standing disabilities including expressive aphasia * chronic disability -has a service dog at the [employer] * multiple abrasions and bruises -he doesn't know how he got them *DVT prophylaxis: LMWH *Plan: plan is to dc with increased services. CM [facility] with the [facility], he will have home PT, OT, CLINICAL AUDITOR, and someone to help keep his home clean. Patient gets around by using the bus. CM will talk w the police or [employer] to see if his dog can be brought to him. Subjective: George is feeling well, very happy about being discharged. Objective: Vital Signs Temp Pulse Resp BP Pulse Ox 36.3 C 84 12 120/77 92 05/13/17 07:51 05/13/17 07:51 05/13/17 07:51 05/13/17 09:25 05/13/17 07:51 Laboratory Results 05/10/17 09:15 05/10/17 09:15 05/12/17 05/13/17 05/14/17 05:59 05:59 05:59 Intake Total 1030 1640 450 Output Total 500 Balance 1030 1140 450 PT 16.6 SEC (12.0-15.0) H 05/07/17 13:35 INR 1.32 (0.83-1.16) H 05/07/17 13:35 - Physical Exam Constitutional: not in pain, obese Eyes: PERRL Ears, Nose, Mouth, Throat: hearing normal Cardiovascular: regular rate and rhythym, tachycardia Respiratory: no respiratory distress Gastrointestinal: normoactive bowel sounds Skin: warm Musculoskeletal: generalized weakness Neurologic: AAOx3 Psychiatric: interacting appropriately, not anxious ICD10 Worksheet Patient Problems: Problems Problem Status Onset Multiple abrasions Acute Multiple contusions Acute Seizure Acute Closed fracture of upper end of humerus Active Abrasion Acute Closed fracture of medial condyle of distal end of right femur Acute Frequent falls Acute Head injury Acute
--- NOTE | 2017-05-13 10:04 | PDIAF ---
- Diagnosis Diagnosis: acute encephalopathy, sseizures Code Status: Full Code - Medication Management Discharge Medications: Medications to Continue on Transfer Divalproex ER [Depakote ER 500 MG (*)] 1,500 mg PO BID 04/06/12 [Last Taken ] Phenytoin Sodium Extended [Dilantin (*)] 200 mg PO HS 04/06/12 [Last Taken 05/19] Phenytoin Sodium Extended [Dilantin (*)] 300 mg PO DAILY10 04/06/12 [Last Taken 05/20/15] Simvastatin [Zocor] 20 mg PO HS 05/20/15 [Last Taken 05/19/15] levETIRAcetam [Keppra 500 mg (*)] 250 mg PO BID 05/20/15 [Last Taken 05/20/15] Lisinopril [Zestril 5 mg (*)] 5 mg PO DAILY 05/07/17 [Last Taken Unknown] Acetaminophen [Tylenol 325mg (*)] 650 mg PO Q4HRS PRN tab 05/13/17 [Last Taken Unknown] Discharge Medications: Refer to the Discharge Home Medication list for PRN reason. PICC Care - Routine: N/A - Orders Services needed: Home Care, Registered Nurse, Certified Paste Up Artist, Physical Therapy, Occupational Therapy Home Care Face to Face: I certify that this patient was under my care and that I had the required [id number] encounter meeting the encounter requirements on the discharge day. My findings support the fact that the patient is homebound as defined in Home Care Face to Face Continued: CMS Chapter 7 Medicare Benefits Manual 30.1.1 , The condition of the patient is such that there exists a normal inability to leave home and consequently, leaving home would require a considerable and taxing effort. Isolation Type: None Diet Recommendation: no restrictions on diet Diet Texture: Regular Texture Diet - Follow Up Care Current Providers and Referrals: Melani Khan PA [Primary Care Provider] - As per Instructions Lloyd Purcell MD [Medical Doctor] -
--- NOTE | 2017-05-13 11:53 | PDIAF ---
- Diagnosis Diagnosis: acute encephalopathy, sseizures Code Status: Full Code - Medication Management Discharge Medications: Medications to Continue on Transfer Divalproex ER [Depakote ER 500 MG (*)] 1,500 mg PO BID 04/06/12 [Last Taken ] Phenytoin Sodium Extended [Dilantin (*)] 200 mg PO HS 04/06/12 [Last Taken 05/19] Phenytoin Sodium Extended [Dilantin (*)] 300 mg PO DAILY10 04/06/12 [Last Taken 05/20/15] Simvastatin [Zocor] 20 mg PO HS 05/20/15 [Last Taken 05/19/15] levETIRAcetam [Keppra 500 mg (*)] 250 mg PO BID 05/20/15 [Last Taken 05/20/15] Lisinopril [Zestril 5 mg (*)] 5 mg PO DAILY 05/07/17 [Last Taken Unknown] Acetaminophen [Tylenol 325mg (*)] 650 mg PO Q4HRS PRN tab 05/13/17 [Last Taken Unknown] Discharge Medications: Refer to the Discharge Home Medication list for PRN reason. PICC Care - Routine: N/A - Orders Services needed: Home Care, Registered Nurse, Physical Therapy, Occupational Therapy Home Care Face to Face: I certify that this patient was under my care and that I had the required [id number] encounter meeting the encounter requirements on the discharge day. My findings support the fact that the patient is homebound as defined in Home Care Face to Face Continued: CMS Chapter 7 Medicare Benefits Manual 30.1.1 , The condition of the patient is such that there exists a normal inability to leave home and consequently, leaving home would require a considerable and taxing effort. Isolation Type: None Diet Recommendation: no restrictions on diet Diet Texture: Regular Texture Diet Additional: Please include in the therapies a Behavioral RN. - Follow Up Care Current Providers and Referrals: Melani Khan PA [Primary Care Provider] - As per Instructions Lloyd Purcell MD [Medical Doctor] -
[2017-05-13 12:27] VITALS: BP 127/87; PULSE 102; TEMP 98.7; O2SAT 90
--- NOTE | 2017-05-13 13:27 | GDS ---
[f rep st] DISCHARGE SUMMARY DISCHARGE DIAGNOSES: 1. Acute encephalopathy. 2. Mild rhabdomyolysis. 3. Seizure disorder. 4. Liver lesion noted on the CT scan. 5. Developmentally delayed with longstanding disabilities including at times expressive aphasia. 6. Chronic disability. 7. Multiple abrasions and bruises. CONSULTATION: 1. Dr. Shady Beckham. 2. Dr. Robi Funez. Briefly, the patient is a 62-year-old male who is developmentally delayed and seizure disorder, who presented to the emergency room with bruises. He lives in an apartment in [facility] near [facility]. When he was evaluated at home, he seemed more confused and had some bruises. When the admitting doctor spoke to the patient, he said that he had a seizure and sees Dr. Purcell. During his stay it was unclear of his baseline. He had a head CT performed which showed nothing acute, but a scalp hematoma. No evidence of a skull fracture. He also had no evidence of acute fracture of the cervical spine. It was unclear if he may have had a small type of stroke. Subsequently had a brain MRI that showed severe underlying cerebral and cerebellar atrophy without anything acute. Ultimately, he was evaluated by Neurology. Dr. Beckham talked to Dr. Purcell to review the patient's care and felt he was close to his baseline and recommended that he continue his home seizure regimen. He clinically improved. The plan is for him to be discharged back home with more care. Case Management has been actively involved. He also has a service dog and that will be arranged to be brought back to him. HOSPITAL COURSE: 1. Acute encephalopathy, resolved. The patient states he forgot to take his seizure medications. 2. Mild rhabdomyolysis, most likely from dehydration. 3. Seizure disorder. Home medications have been resumed. 4. Liver lesion noted on the CT scan. Will need to get further evaluation in regard to this. 5. Developmentally delayed. He has long-standing disabilities including expressive aphasia. 6. Chronic disability. He his a service dog that helps him. 7. Multiple abrasions and bruises. He realizes that he likely had a seizure and fell. DISCHARGE CONDITION: Stable. Blood pressure is 120/77, heart rate is 84, respiratory rate is 20, O2 sats on room air 92%, temperature 36.3 Celsius. MEDICATIONS AT DISCHARGE: Please see the EMR. DISCHARGE INSTRUCTIONS: 1. He needs further evaluation of lesion on his liver down the road. 2. Continue with home care. 3. Follow up with Dr. Lloyd Purcell. His phenytoin level is slightly low, but he has had no seizures. Reviewed this with Neurology. They will follow up with this. Greater than 30 minutes discharging and coordinating the patient's care. /[id number]/MODL MTDD
--- NOTE | 2017-05-13 13:38 | WOCRNPDOC ---
WOCRN Advanced Assessment Note - Skin Integrity Problem, Advanced Assess Medial Buttock Dermatitis Dressing Type: Open to Air Exudate Amount: None Marta Wound Tissue: Blanching Marta Wound Swelling: None Peripheral Edema Location & Description: Patient was identified in the PIPP study on 05/12 and wound care was asked to follow-up to assess his bottom. Patient assisted to stand from the chair with the assistance of his walker. Patient's medial buttocks with darkened areas, likely scars from previous injury of unknown etiology. Currently, there is a partial thickness injury on the left buttock that appears to be related to friction. There is moisture evident where the buttocks touch and the skin appears raw. No pressure related wounds noted. Patient with no complaints of pain. Wound care will not continue to follow this wound. Please reconsult PRN.
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
== END 2017-05-13 15:44 | disposition home or self-care (01) | DRG 100 ==
LOC: EDUNIT# → F3N 16:28
PROVIDERS: ADMIT Internal Medicine; ATTEND Internal Medicine
DX: G40.909 Epilepsy, unspecified, not intractable, without status epilepticus (principal); G93.49 Other encephalopathy; M62.82 Rhabdomyolysis; K76.9 Liver disease, unspecified; F80.1 Expressive language disorder; R62.50 Unspecified lack of expected normal physiological development in childhood; S50.312A Abrasion of left elbow, initial encounter; S50.311A Abrasion of right elbow, initial encounter; S80.211A Abrasion, right knee, initial encounter; S80.212A Abrasion, left knee, initial encounter; W19.XXXA Unspecified fall, initial encounter; S00.03XA Contusion of scalp, initial encounter; Y92.039 Unspecified place in apartment as the place of occurrence of the external cause
CPT/HCPCS: 80186-90; 80305; 82947-QW; 92507-GN; 92523-GN; 97116-GP; 97161-GP; 97166-GO; 97530-GP; 97535-GO; G0480; G8978-GP-CK; G8979-GP-CJ; G8987-GO-CJ; G8988-GO-CI; G8989-GO-CI; G9162-GN-CL; G9163-GN-CL; J1650; Q9967

== ENCOUNTER 2017-07-30 14:58 | Inpatient (IN) | payer OTHER, MEDICAID ==
[2017-07-30] MEDS ORDERED: NS 1,000 ML IV ONE (15:07)
[2017-07-30] MEDS ORDERED: levETIRAcetam 1000MG/NACL 100 ML IV ONE (15:10)
--- NOTE | 2017-07-30 15:11 | EDPHY ---
H & P Stated Complaint: AMS, found naked, sz? Time Seen by Provider: 07/30/17 15:00 HPI/ROS: CHIEF COMPLAINT: Altered mental status HISTORY OF PRESENT ILLNESS: The patient is a 62-year-old man who was found wandering around his apartment complex yelling at people naked. He answers all questions by saying yes. He is moving all extremities. His vital signs are normal for EMS and his blood glucose was normal. After reviewing the medical records it appears that he was here under similar conditions in April. He was admitted for acute encephalopathy mild rhabdomyolysis. He had not been taking his seizure medications at that time. Paramedics did note that he had blister packs a medication in his home that had not been used recently. He has a baseline of developmental delay and longstanding disabilities including expressive aphasia. During his last hospitalization his primary Dr. Purcell was consulted who stated the patient was not far from baseline. EMS reports that his apartment was disheveled and messy which also appears to be similar to his previous admission. They did not find any drug paraphernalia or alcohol. REVIEW OF SYSTEMS: Unable to obtain secondary to condition EXAM: GENERAL: Confused, answers yes to all questions, moving all extremities, awake and alert HEAD: Atraumatic, normocephalic. EYES: Pupils equal round and reactive to light, extraocular movements intact, sclera anicteric, conjunctiva are normal. ENT: TMs normal, nares patent, oropharynx clear without exudates. Moist mucous membranes. NECK: Normal range of motion, supple without lymphadenopathy or JVD. LUNGS: Breath sounds clear to auscultation bilaterally and equal. No wheezes rales or rhonchi. HEART: Regular rate and rhythm without murmurs, rubs or gallops. ABDOMEN: Soft, nontender, normoactive bowel sounds. No guarding, no rebound. No masses appreciated. Scar right lower quadrant BACK: No CVA tenderness, no spinal tenderness, step-offs or deformities EXTREMITIES: Normal range of motion, no pitting or edema. No clubbing or cyanosis. NEUROLOGICAL: Cranial nerves II through XII grossly intact does not cooperate with exam. Speech not slurred, not droopy, answers yes to all questions except for when asked if you cancer he said no. Answers yes when asked the date and location. Ambulating at home, normal movement in all extremities, normal sensation PSYCH: Difficult to assess SKIN: Warm, dry, normal turgor, no visible rashes or lesions. Source: Patient, EMS - Personal History Current Tetanus/Diphtheria Vaccine: Unsure Current Tetanus Diphtheria and Acellular Pertussis (TDAP): Unsure Tetanus Vaccine Date: 2012 - Medical/Surgical History Hx Asthma: No Hx Chronic Respiratory Disease: No Hx Diabetes: No Hx Cardiac Disease: No Hx Renal Disease: No Hx Cirrhosis: No Hx Alcoholism: No Hx HIV/AIDS: No Hx Splenectomy or Spleen Trauma: No Other PMH: PMH- epilepsy, HTN. PSH- appy - Social History Smoking Status: Never smoked Alcohol Use: Other Constitutional: Initial Vital Signs Temperature (C) 37.3 C 07/30/17 15:03 Heart Rate 108 H 07/30/17 15:03 Respiratory Rate 18 07/30/17 15:03 Blood Pressure 136/83 H 07/30/17 15:03 O2 Sat (%) 95 07/30/17 15:03 O2 Delivery Mode Room Air Allergies/Adverse Reactions: No Known Allergies Allergy (Unverified 01/13/17 20:06) Home Medications: Medication Instructions Recorded Divalproex ER [Depakote ER 500 MG 1,500 mg PO BID@729,192904/06/12 (*)] Phenytoin Sodium Extended 200 mg PO DAILY@192904/06/12 [Dilantin (*)] Phenytoin Sodium Extended 300 mg PO DAILY@72904/06/12 [Dilantin (*)] Simvastatin [Zocor] 20 mg PO DAILY@192905/20/15 levETIRAcetam [Keppra 500 mg (*)] 250 mg PO BID@729,192905/20/15 Lisinopril [Zestril 5 mg (*)] 5 mg PO DAILY@72905/07/17 Ibuprofen [Motrin (*)] 200 - 400 mg PO Q6 PRN 07/30/17 Loratadine [Claritin 10 mg] 10 mg PO DAILY PRN 07/30/17 Multivitamins [Multivitamin (*)] 1 each PO DAILY@30 07/30/17 Medical Decision Making - Diagnostics EKG Interpretation: An EKG obtained and was read and documented in trace view. Please see trace view for full reading and report. Sinus tachycardia, no acute ischemic changes Procedures: 6:00 p.m. I attempted lumbar puncture. I tried at 2 levels unsuccessfully. No CSF was obtained. Patient tolerated the procedure well. I did use a longer spinal needle. I will send him to interventional Radiology. ED Course/Re-evaluation: Police did place the patient on a mental health hold. I feel that this is inappropriate. He is clearly a medical patient. I will release the hold. Patient tolerated the procedure well. I was unsuccessful. He was cooperative. I will also start him on Rocephin admit to the medical service. 6:20 p.m. I discussed the case with Dr. Richardson who will admit. Differential Diagnosis: Partial list of the Differential diagnosis considered include but were not limited to; developmental delay, sepsis,, seizure and although unlikely based on the history and physical exam, I also considered intracranial hemorrhage, head injury. Critical Care Time: Critical care time spent by me, Dr. Batres exclusive with this patient was 45 minutes, exclusive of the PA time exclusive of procedures. The organ system that was at risk was cardiovascular neurologic and I gave IV fluids, antibiotics , workup, procedures and admission to prevent worsening of the patient's condition - Data Points Laboratory Results: Laboratory Results 07/30/17 15:28 07/30/17 15:28 Microbiology Results: MICROBIOLOGY 07/30/17 16:09 Nasal, Sinus - Swab Respiratory Panel (PCR) - Final No Organism Detected Medications Given: Divalproex Sodium (Depakote Er) 1,500 mg PO BID@0730,1930 SULMA Stop: 01/27/18 07:29 Last Admin: 07/31/17 08:21 Dose: 1,500 mg Enoxaparin Sodium (Lovenox) 40 mg SC DAILY SULMA Stop: 01/27/18 08:59 Last Admin: 07/31/17 08:21 Dose: 40 mg Potassium Chloride/Sodium Chloride (Ns W/ 20 Kcl/L) 1,000 mls @ 150 mls/hr IV CONT SULMA Stop: 01/26/18 18:59 Last Admin: 07/30/17 23:18 Dose: 1,000 mls Levetiracetam (Keppra) 250 mg PO BID@0730,1930 SULMA Stop: 01/27/18 07:29 Last Admin: 07/31/17 08:21 Dose: 250 mg Multivitamins (Tab-A-Nadeen) 1 each PO DAILY@0730 [facility] Stop: 01/27/18 07:29 Last Admin: 07/31/17 08:21 Dose: 1 each Phenytoin Sodium (Dilantin) 300 mg PO DAILY@0730 [facility] Stop: 01/27/18 07:29 Last Admin: 07/31/17 08:21 Dose: 300 mg Discontinued Medications Fentanyl (Sublimaze) 100 mcg IVP EDNOW ONE Stop: 07/30/17 17:30 Last Admin: 07/30/17 17:44 Dose: 100 mcg Sodium Chloride (Ns) 1,000 mls @ 0 mls/hr IV ONCE ONE; Wide Open PRN Reason: Protocol Stop: 07/30/17 15:08 Last Admin: 07/30/17 15:50 Dose: Not Given Levetiracetam (Keppra (Premix)) 100 mls @ 400 mls/hr IV EDNOW ONE Stop: 07/30/17 15:24 Last Admin: 07/30/17 16:13 Dose: 100 mls Sodium Chloride (Ns) 3,300 mls @ 6,600 mls/hr 30 ml/kg infuse over 30 min ( 3300 ml) IV EDNOW ONE PRN Reason: Protocol Stop: 07/30/17 16:17 Last Admin: 07/30/17 16:12 Dose: 3,300 mls Ceftriaxone Sodium/Dextrose (Rocephin 1 Gm (Premix)) 50 mls @ 100 mls/hr IV EDNOW ONE PRN Reason: Protocol Stop: 07/30/17 18:31 Last Admin: 07/30/17 18:17 Dose: 50 mls Departure - Departure Disposition: [facility] Inpatient Acute Clinical Impression: Altered mental status Qualifiers: Altered mental status type: transient alteration of awareness Qualified Code(s) : R40.4 - Transient alteration of awareness Sepsis Qualifiers: Sepsis type: sepsis due to unspecified organism Qualified Code(s): A41.9 - Sepsis, unspecified organism Condition: Critical
[2017-07-30 15:38] LABS: PLATELET COUNT 183 10^3/uL (150-400)
--- NOTE | 2017-07-30 15:45 | CPEKG ---
Heart Rate: 101 RR Interval: 594 P-R Interval: 184 QRSD Interval: 86 QT Interval: 368 QTC Interval: 477 P [place]: 40 QRS [place]: 23 T Wave [place]: 33 EKG Severity - BORDERLINE ECG - EKG Impression: SINUS TACHYCARDIA EKG Impression: BORDERLINE PROLONGED QT INTERVAL Electronically Signed By: Shady Batres 30-Jul-2017 15:52:21
[2017-07-30 15:48] LABS: INR 0.96 (0.83-1.16)
[2017-07-30] MEDS ORDERED: NS 3,300 ML IV ONE (15:48)
[2017-07-30 16:02] LABS: CREATINE KINASE 176 IU/L (0-224)
[2017-07-30] MEDS ORDERED: fentaNYL 100 MCG/2 ML INJ IVP ONE (17:29)
[2017-07-30] MEDS ORDERED: LIDOCAINE 1% 300 MG/30 ML SDV ONE (18:31)
[2017-07-30] MEDS ORDERED: ONDANSETRON DISINTEGRATING 4 MG TAB PO PRN (18:58)
[2017-07-30] MEDS ORDERED: ACETAMINOPHEN 325 MG TAB PO PRN (18:58)
[2017-07-30] MEDS ORDERED: ONDANSETRON 4 MG/2 ML VIAL IVP PRN (18:58)
[2017-07-30] MEDS ORDERED: NS W/ 20 KCl/L 1,000 ML IV SCH (19:00)
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
[2017-07-30] MEDS ORDERED: CETIRIZINE 10 MG TAB PO PRN (22:47)
--- NOTE | 2017-07-30 23:01 | PDMN ---
Medical Necessity Medical necessity: C/M review: est. > 2 MN LOS for eval and TX of acute possible severe sepsis, acute encephalopathy of unclear etiology, metabolic acidosis, requiring IV Ceftriaxone in ED, lumbar puncture in IR, planned Neurology consult, ongoing NPO, IV fluids, cardiac monitoring, pulse oximetry, monitoring mental status, acute inpt PT/OT/ST in SDU, comorbid chronic seizure disorder, history of possible liver hemangioma, developmental delay per H/P.
[2017-07-31 05:07] LABS: PLATELET COUNT 169 10^3/uL (150-400)
[2017-07-31] MEDS: DIVALPROEX ER 500 MG TAB PO SCH ×2 (08:21→20:06)
[2017-07-31] MEDS: PHENYTOIN SODIUM EXTENDED 100 MG CAP PO SCH ×2 (08:21→20:06)
[2017-07-31] MEDS: levETIRAcetam 250 MG TAB PO SCH ×2 (08:21→20:07)
[2017-07-31] MEDS: MULTIVITAMINS 1 EACH TAB PO SCH (08:21)
[2017-07-31] MEDS: ENOXAPARIN 40 MG/0.4 ML SYR SC SCH (08:21)
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
--- NOTE | 2017-07-31 16:23 | HOSPPROG ---
Hospitalist Progress Note Assessment/Plan: Acute encephalopathy - pt was likely post-ictal from seizure, seems returned to baseline. Seizure disorder - sub-therapeutic levels of anti-epileptics, suspect seizure 2/ 2 non-compliance. CM working on home services for medication assistance. Appreciate neurology assistance. -cont anti-epileptics, seizure precautions Hypertension - resume home lisinopril Developmental delay - lives independently, needs assistance at home due to medication non-compliance Full code DVT PPLX - Lovenox Dispo - home likely with HH in 1-2 days Subjective: Pt feels fine. No complaints. Eating/drinking. Objective: Vital Signs Temp Pulse Resp BP Pulse Ox 36.7 C 89 16 151/90 H 95 07/31/17 16:00 07/31/17 16:00 07/31/17 16:00 07/31/17 16:00 07/31/17 16:00 Microbiology 07/30/17 19:29 Gram Stain - Final Cerebral Spinal Fluid Laboratory Results 07/31/17 05:00 07/31/17 05:00 07/30/17 07/31/17 08/01/17 05:59 05:59 05:59 Intake Total 1860 Balance 1860 PT 13.0 SEC (12.0-15.0) 07/30/17 15:28 INR 0.96 (0.83-1.16) 07/30/17 15:28 - Physical Exam Constitutional: no apparent distress Eyes: PERRL Ears, Nose, Mouth, Throat: moist mucous membranes Cardiovascular: regular rate and rhythym Respiratory: no respiratory distress Gastrointestinal: normoactive bowel sounds, soft, non-tender abdomen Skin: warm Musculoskeletal: full muscle strength Neurologic: AAOx3 Psychiatric: flat affect, poor insight, poor judgement ICD10 Worksheet Patient Problems: Problems Problem Status Onset Altered mental status Acute Sepsis Acute Closed fracture of upper end of humerus Active Abrasion Acute Closed fracture of medial condyle of distal end of right femur Acute Frequent falls Acute Head injury Acute Multiple abrasions Acute Multiple contusions Acute Seizure Acute
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
[2017-07-31] MEDS: ATORVASTATIN CALCIUM 10 MG TAB PO SCH (20:07)
[2017-08-01 04:46] LABS: PLATELET COUNT 166 10^3/uL (150-400)
[2017-08-01] MEDS: LISINOPRIL 5 MG TAB PO SCH (07:18)
[2017-08-01] MEDS: DIVALPROEX ER 500 MG TAB PO SCH ×2 (07:18→20:04)
[2017-08-01] MEDS: levETIRAcetam 250 MG TAB PO SCH ×2 (07:18→20:04)
[2017-08-01] MEDS: MULTIVITAMINS 1 EACH TAB PO SCH (07:20)
[2017-08-01] MEDS: PHENYTOIN SODIUM EXTENDED 100 MG CAP PO SCH ×2 (07:21→20:03)
[2017-08-01] MEDS: ENOXAPARIN 40 MG/0.4 ML SYR SC SCH (08:33)
--- NOTE | 2017-08-01 16:38 | HOSPPROG ---
Hospitalist Progress Note Assessment/Plan: Acute encephalopathy - pt was likely post-ictal from seizure, now returned to baseline. Seizure disorder - sub-therapeutic levels of anti-epileptics, suspect seizure 2/ 2 non-compliance. CM working on home services for medication assistance vs new placement options. Appreciate neurology assistance. -cont anti-epileptics, seizure precautions Hypertension - resume home lisinopril Developmental delay - lives independently, may do better in a intermediate Full code DVT PPLX - Lovenox Dispo - ADD uncertain, cont inpt Subjective: Pt doing well. He has no complaints today. Seizure free. No cordero or vision changes, eating and drinking well. Objective: Vital Signs Temp Pulse Resp BP Pulse Ox 36.7 C 89 18 138/93 H 94 08/01/17 15:59 08/01/17 15:59 08/01/17 15:59 08/01/17 15:59 08/01/17 15:59 Microbiology 07/30/17 19:29 Gram Stain - Final Cerebral Spinal Fluid Laboratory Results 08/01/17 04:20 08/01/17 04:20 07/31/17 08/01/17 08/02/17 05:59 05:59 05:59 Intake Total 2560 Output Total 600 400 Balance 1960 -400 PT 13.0 SEC (12.0-15.0) 07/30/17 15:28 INR 0.96 (0.83-1.16) 07/30/17 15:28 - Physical Exam Constitutional: no apparent distress Eyes: PERRL Ears, Nose, Mouth, Throat: moist mucous membranes Cardiovascular: regular rate and rhythym Respiratory: no respiratory distress, clear to auscultation Gastrointestinal: normoactive bowel sounds, soft, non-tender abdomen Skin: warm Musculoskeletal: full muscle strength Neurologic: AAOx3 Psychiatric: interacting appropriately ICD10 Worksheet Patient Problems: Problems Problem Status Onset Altered mental status Acute Sepsis Acute Closed fracture of upper end of humerus Active Abrasion Acute Closed fracture of medial condyle of distal end of right femur Acute Frequent falls Acute Head injury Acute Multiple abrasions Acute Multiple contusions Acute Seizure Acute
[2017-08-01] MEDS: ATORVASTATIN CALCIUM 10 MG TAB PO SCH (20:03)
[2017-08-02 05:20] LABS: PLATELET COUNT 196 10^3/uL (150-400)
[2017-08-02] MEDS: MULTIVITAMINS 1 EACH TAB PO SCH (07:33)
[2017-08-02] MEDS: LISINOPRIL 5 MG TAB PO SCH (07:33)
[2017-08-02] MEDS: PHENYTOIN SODIUM EXTENDED 100 MG CAP PO SCH ×2 (07:34→20:20)
[2017-08-02] MEDS: levETIRAcetam 250 MG TAB PO SCH ×2 (07:35→20:19)
[2017-08-02] MEDS: DIVALPROEX ER 500 MG TAB PO SCH ×2 (07:35→20:19)
[2017-08-02] MEDS: ENOXAPARIN 40 MG/0.4 ML SYR SC SCH (07:35)
--- NOTE | 2017-08-02 13:15 | HOSPPROG ---
Hospitalist Progress Note Assessment/Plan: Acute encephalopathy - pt was likely post-ictal from seizure, now returned to baseline. Seizure disorder - sub-therapeutic levels of anti-epileptics, suspect seizure 2/ 2 non-compliance. CM working on home services for medication assistance vs new placement options such as a fpc. Appreciate neurology assistance. -cont anti-epileptics, seizure precautions Hypertension - resume home lisinopril Developmental delay - lives independently, may do better in a fpc Full code DVT PPLX - Lovenox Dispo - ADD uncertain, cont inpt Subjective: Pt doing fine. No complaints. Objective: Vital Signs Temp Pulse Resp BP Pulse Ox 37.2 C 89 18 139/85 H 92 08/02/17 07:36 08/02/17 07:36 08/02/17 07:45 08/02/17 07:36 08/02/17 07:36 Microbiology 07/30/17 19:29 Gram Stain - Final Cerebral Spinal Fluid Laboratory Results 08/02/17 05:00 08/02/17 05:00 08/01/17 08/02/17 08/03/17 05:59 05:59 05:59 Intake Total 2560 1780 Output Total 600 1900 Balance 1960 -120 PT 13.0 SEC (12.0-15.0) 07/30/17 15:28 INR 0.96 (0.83-1.16) 07/30/17 15:28 - Physical Exam Constitutional: no apparent distress Eyes: PERRL Ears, Nose, Mouth, Throat: moist mucous membranes Cardiovascular: regular rate and rhythym Respiratory: no respiratory distress, clear to auscultation Skin: warm Musculoskeletal: full muscle strength Neurologic: AAOx3 Psychiatric: interacting appropriately ICD10 Worksheet Patient Problems: Problems Problem Status Onset Altered mental status Acute Sepsis Acute Closed fracture of upper end of humerus Active Abrasion Acute Closed fracture of medial condyle of distal end of right femur Acute Frequent falls Acute Head injury Acute Multiple abrasions Acute Multiple contusions Acute Seizure Acute
--- NOTE | 2017-08-02 16:54 | ASMTCMCOM ---
CM Note CM Note Notes: [place] [phone] Raulito Roper APS [phone] [facility] Ambrose He C:[phone] O:[phone] and Mary Jane Li CPWD RN [phone] Friend Martina Haque [phone] Ambrose [facility] [phone] TC to HC[employer] worker Asia Reza ([phone]), HCBS has been providing emergency alert button and medication management box dispenser. Home making services have stopped as pt home has not been in a condition which is safe for home health nurse to come in, some agencies have refused. Asia believed pt is open w APS due to hoarding and worker is Raulito Roper. Last report Asia got from APS is APS was assisting pt w hoarding issue and pt refused services of clutter truck when they came out for an assessment. As soon as APS tells Asia the home is ok, has been deep cleaned, she can get [facility] for light home health nurse. Pt has no personal care services; he consistently reports he is independent w ADLS/IADLs. Pt has no guardian, has not agreed to a rep payee. Pt has no phone, he has had some challenges paying bills and refuses to have a rep payee. The CPWD has reported to Asia pt does not allow them to assist w budgeting. HCBS can help w getting people into [place], none of the Medicaid [place]s allow pets. This admissions clinicals were faxed to [facility]. left for Raulito Roper w APS, states he does not work Mondays. Hospital doctor Devyn recommends SNF for medication stabilization/management. While it may be ideal for pt to reside in skilled nursing, this process takes months and there are wait lists. SNF referral sent to [facility], admissions staff will complete on-site in am. Referral also sent to [facility]. Pt agreeable to SNF stay if [place] is cared for. Pt states he has a lot of friends and is unable to provide any names/numbers. Spoke w only person listed in chart pt friend Martina, she cannot watch [place] and states she is willing to help pay for [place] to board. TC to [facility] Alyssa reports they have [place] scheduled to be kept until Wed08/04/17, call [phone] if need more time. PASRR trigger due developmental delay, faxed to [facility] F:[phone]. Magda TOM calls to report they received PASRR, as soon as there is an accepting facility they can authorize PASRR. Call PASRR line [phone] when there is an accepting facility. They have a 6 hour turn around for authorization. Ambrose Fraga [facility] visited w pt, she also knows him from his time at [employer]. She will confirm what [facility] is open on but it is believed RN/SEMICONDUCTOR LAB TECHNICIAN. Pt has no phone and [facility] was trying to help get pt a phone. left for CPCHUYITA He. Date Signed: 08/02/2017 04:54 PM Electronically Signed By:PUMA Brown
[2017-08-02] MEDS: ATORVASTATIN CALCIUM 10 MG TAB PO SCH (20:19)
[2017-08-03] MEDS: PHENYTOIN SODIUM EXTENDED 100 MG CAP PO SCH ×2 (08:33→22:24)
[2017-08-03] MEDS: levETIRAcetam 250 MG TAB PO SCH ×3 (08:33→22:23)
[2017-08-03] MEDS: MULTIVITAMINS 1 EACH TAB PO SCH (08:34)
[2017-08-03] MEDS: ENOXAPARIN 40 MG/0.4 ML SYR SC SCH (08:34)
[2017-08-03] MEDS: LISINOPRIL 5 MG TAB PO SCH (08:34)
[2017-08-03] MEDS: DIVALPROEX ER 500 MG TAB PO SCH ×2 (08:34→22:24)
--- NOTE | 2017-08-03 10:11 | ASMTCMCOM ---
CM Note CM Note Notes: VM from Ambrose He from CPWD [phone] states pt has not had sevices for 3-4 months. TC from Raulito [place] APS [phone] APS case is still open on pt for hoarding/condition of pt apartment. Pt has a lot of suff and it is a process to close a case. There has been some improvement over the last couple months in condition of home and Raulito does not know who is helping pt. About pt support system besides friend Martina, only other person Raulito knows of is software manager Vandana Keyes [phone] she lives on site and is who he goes to. Raulito reports pt not open w WD since April 2017 when [facility] took on uniform force captain services. APS will not be able add pt medication non-compliance to APS case, Raulito is faxed ([phone]) clinicals to see why pt in hospital and will talk to home health RN to see if there is any idea why pt not taking his meds. The only resource Raulito knows of for [place] is [employer], which [facility] is already working with. Raulito is concerned about pt capacity to make decisions for himself, wonders if pt decisional capacity can be evaluated while at [facility]. Raulito available for further consult. Date Signed: 08/03/2017 10:11 AM Electronically Signed By:PUMA Brown
--- NOTE | 2017-08-03 15:06 | HOSPPROG ---
Hospitalist Progress Note Assessment/Plan: Acute encephalopathy - pt was likely post-ictal from seizure, now returned to baseline. Seizure disorder - sub-therapeutic levels of anti-epileptics, suspect seizure 2/ 2 non-compliance. Appreciate neurology assistance. Currently has full home care services who assist with medications, but he is still not compliant based on levels. -cont anti-epileptics, seizure precautions -working on placement options for medication stabilization / management Hypertension - resume home lisinopril Developmental delay - lives independently, APS involved due to hoarding. He [place] do better in [place]. No family. Full code DVT PPLX - Lovenox Dispo - ADD uncertain, cont inpt. Planning for SNF rehab for med management, CM involved. Subjective: Pt doing fine. No complaints. Objective: Vital Signs Temp Pulse Resp BP Pulse Ox 36.6 C 85 16 119/82 H 90 L 08/03/17 08:00 08/03/17 08:00 08/03/17 08:00 08/03/17 08:34 08/03/17 08:00 Microbiology 07/30/17 19:29 Gram Stain - Final Cerebral Spinal Fluid CSF Culture - Final Laboratory Results 08/02/17 05:00 08/02/17 05:00 08/02/17 08/03/17 08/04/17 05:59 05:59 05:59 Intake Total 1780 500 460 Output Total 1900 300 Balance -120 500 160 PT 13.0 SEC (12.0-15.0) 07/30/17 15:28 INR 0.96 (0.83-1.16) 07/30/17 15:28 - Physical Exam Constitutional: no apparent distress Eyes: PERRL Ears, Nose, Mouth, Throat: moist mucous membranes Cardiovascular: regular rate and rhythym Respiratory: no respiratory distress Gastrointestinal: soft, non-tender abdomen Skin: warm Musculoskeletal: full muscle strength Neurologic: AAOx3 Psychiatric: poor judgement ICD10 Worksheet Patient Problems: Problems Problem Status Onset Altered mental status Acute Sepsis Acute Closed fracture of upper end of humerus Active Abrasion Acute Closed fracture of medial condyle of distal end of right femur Acute Frequent falls Acute Head injury Acute Multiple abrasions Acute Multiple contusions Acute Seizure Acute
--- NOTE | 2017-08-03 17:02 | ASMTCMCOM ---
CM Note CM Note Notes: Frequent contacts: [facility] [phone] Charbel Jacquelin APS [phone] [facility] Ambrose He C:[phone] O:[phone] x [phone] and Mary Jane Jen CPWD RN [phone] Friend Martina Haque [phone] Ambrose UrbinaMorales [facility] [phone] Ambrose rogel [facility] [phone] talked to Vandana and Nathaniel Keyes the pt apartment managers [phone] and they do not want pt to lose dog so they were going to see how they can help. Ambrose also reports one of her hospice workers can possibly assist w finding a foster home for [place]. Ambrose provided an [facility] Care Episode Summary Report which is in the chart. Discussed w Hospitalist Devyn, no concern regd pt medical decision making in hospital and regd d/c planning to SNF. Today [facility] completed on-site assessment and one question Mary Lou Huitron w admissions had was what will we skill him on? Medication stabilization/management is not enough to qualify for SNF according to Mary Lou. Referral still pending from [facility]. Charbel Roper w APS visited pt today, limited visit as pt was falling asleep. Today APPEALS ASSISTANT rec LTC as it is unclear if pt can adequately care for self at home. A ULTC-100 was submitted to [employer] today, pt unable to articulate income sources. Spoke w pt about LTC, concern is he is not able to understand the options of his d/c planning. Pt does not understand what LTC is, is agreeable to any plan presented, repeating positive statements of Yes and Great throughout the interaction and pt signed the ULTC-100. Pt already has LTC Medicaid so [employer] was not notified. Date Signed: 08/03/2017 05:01 PM Electronically Signed By:PUMA Brown
[2017-08-03] MEDS: ATORVASTATIN CALCIUM 10 MG TAB PO SCH (22:24)
[2017-08-04 07:32] VITALS: BP 134/93; RESP 18; TEMP 98.4
[2017-08-04] MEDS: DIVALPROEX ER 500 MG TAB PO SCH (08:11)
[2017-08-04] MEDS: PHENYTOIN SODIUM EXTENDED 100 MG CAP PO SCH (08:13)
[2017-08-04] MEDS: MULTIVITAMINS 1 EACH TAB PO SCH (08:14)
[2017-08-04] MEDS: levETIRAcetam 250 MG TAB PO SCH (08:14)
[2017-08-04] MEDS: LISINOPRIL 5 MG TAB PO SCH (08:14)
[2017-08-04] MEDS: ENOXAPARIN 40 MG/0.4 ML SYR SC SCH (08:15)
--- NOTE | 2017-08-04 10:54 | PDIAF ---
- Diagnosis Diagnosis: seizure Code Status: Full Code - Medication Management Discharge Medications: Medications to Continue on Transfer Divalproex ER [Depakote ER 500 MG (*)] 1,500 mg PO BID@04/06/12 [Last Taken 07/30/17 07:30] Phenytoin Sodium Extended [Dilantin (*)] 200 mg PO DAILY@192904/06/12 [Last Taken 07/29/17] Phenytoin Sodium Extended [Dilantin (*)] 300 mg PO DAILY@72904/06/12 [Last Taken 07/30/17] Simvastatin [Zocor] 20 mg PO DAILY@192905/20/15 [Last Taken 07/29/17] levETIRAcetam [Keppra 500 mg (*)] 250 mg PO BID@05/20/15 [Last Taken 07/30/17 07:30] Lisinopril [Zestril 5 mg (*)] 5 mg PO DAILY@72905/07/17 [Last Taken 07/30/17] Ibuprofen [Motrin (*)] 200 - 400 mg PO Q6 PRN 07/30/17 [Last Taken Unknown] Loratadine [Claritin 10 mg] 10 mg PO DAILY PRN 07/30/17 [Last Taken Unknown] Multivitamins [Multivitamin (*)] 1 each PO DAILY@72907/30/17 [Last Taken Unknown] Discharge Medications: Refer to the Discharge Home Medication list for PRN reason. - Orders Services needed: Home Care, Registered Nurse, Master Dev Manager, Physical Therapy, Occupational Therapy Home Care Face to Face: I certify that this patient was under my care and that I had the required [id number] encounter meeting the encounter requirements on the discharge day. My findings support the fact that the patient is homebound as defined in Home Care Face to Face Continued: CMS Chapter 7 Medicare Benefits Manual 30.1.1 , The condition of the patient is such that there exists a normal inability to leave home and consequently, leaving home would require a considerable and taxing effort. Isolation Type: None - Follow Up Care Current Providers and Referrals: Patient,NotPresent [Unknown] - As per Instructions
--- NOTE | 2017-08-04 11:00 | HOSPPROG ---
Hospitalist Progress Note Assessment/Plan: 62 yo M w seizure disorder Acute encephalopathy - pt was likely post-ictal from seizure, now returned to baseline. Seizure disorder - sub-therapeutic levels of anti-epileptics, suspect seizure 2/ 2 non-compliance. Appreciate neurology assistance. Currently has full home care services who assist with medications, but he is still not compliant based on levels. -cont anti-epileptics, seizure precautions -working on placement options for medication stabilization / management Hypertension - resume home lisinopril Developmental delay - lives independently, APS involved due to hoarding. He may do better in a detention. No family. Full code DVT PPLX - Lovenox Dispo -home today w home care > 30 minutes Subjective: ready for dc Objective: Vital Signs Temp Pulse Resp BP Pulse Ox 36.9 C 90 18 134/93 H 93 08/04/17 07:30 08/04/17 07:30 08/04/17 07:30 08/04/17 07:30 08/04/17 07:30 Laboratory Results 08/02/17 05:00 08/02/17 05:00 08/03/17 08/04/17 08/05/17 05:59 05:59 05:59 Intake Total 500 460 200 Output Total 300 Balance 500 160 200 PT 13.0 SEC (12.0-15.0) 07/30/17 15:28 INR 0.96 (0.83-1.16) 07/30/17 15:28 - Physical Exam Constitutional: no apparent distress, appears nourished Eyes: PERRL, anicteric sclera Ears, Nose, Mouth, Throat: moist mucous membranes, hearing normal Cardiovascular: regular rate and rhythym, no murmur, rub, or gallop Respiratory: no respiratory distress, no rales or rhonchi Gastrointestinal: normoactive bowel sounds, soft, non-tender abdomen Genitourinary: no bladder fullness, No manuel in urethra Skin: warm, normal color Musculoskeletal: full muscle strength Neurologic: AAOx3, sensation intact bilaterally Psychiatric: interacting appropriately ICD10 Worksheet Patient Problems: Problems Problem Status Onset Altered mental status Acute Sepsis Acute Closed fracture of upper end of humerus Active Abrasion Acute Closed fracture of medial condyle of distal end of right femur Acute Frequent falls Acute Head injury Acute Multiple abrasions Acute Multiple contusions Acute Seizure Acute
--- NOTE | 2017-08-04 11:33 | GDS ---
[f rep st] DISCHARGE SUMMARY DISCHARGE DIAGNOSIS: 1. Seizure disorder. 2. Medication noncompliance. 3. Seizures. 4. Encephalopathy. 5. Developmental delay. Please see admission history and physical by Dr. Dagoberto Richardson. The patient presented with encephalopa thy, felt to be postictal. He had an LP showing 10 white cells. He received antibiotics in the emerg ency department. They were not continued. His CSF cultures were negative. He was afebrile while he re. He was seen by PT and OT, recommended home with home care, which is accomplished for him, and ge is discharged home today. /[id number]/MODL
[2017-08-04 13:24] VITALS: PULSE 94; O2SAT 95
--- NOTE | 2017-08-04 18:03 | ASMTLACE ---
LACE Length of stay for Answers: 4-6 days current admission Acuity / Level of Answers: Yes Care: Did the patient have an inpatient admission? Comorbidities - select Answers: Other Notes: HTN, developmental all that apply delay, seizure disorder # of Emergency department Answers: 3-4 visits in the last 6 months Social determinants Answers: Lack of community resources and/or lack of social support (no pcp, lives alone, transportation, apurva d) Score: 15 Date Signed: 08/04/2017 06:02 PM Electronically Signed By:Martina Martins LCSW
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
== END 2017-08-04 13:23 | disposition home health service (06) | DRG 101 ==
LOC: EDUNIT# → F2N 20:05 → F3N 07-31 13:28
PROVIDERS: ADMIT Internal Medicine; ATTEND Hospitalist
PROC: 009U3ZX Drainage of Spinal Canal, Percutaneous Approach, Diagnostic (ICD-10-PCS; principal; 2017-07-30)
DX: G40.909 Epilepsy, unspecified, not intractable, without status epilepticus (principal); R62.50 Unspecified lack of expected normal physiological development in childhood; R47.01 Aphasia; I10 Essential (primary) hypertension; E87.2 Acidosis; Z91.14 Patient's other noncompliance with medication regimen
CPT/HCPCS: 80177-90; 80307; 92507-GN; 92523-GN; 96365; 97161-GP; 97165-GO; 97535-GO; G0480; G0515-GO; G8978-GP-CI; G8979-GP-CI; G8980-GP-CI; G8987-GO-CI; G8988-GO-CI; G8989-GO-CI; G9168-GN-CK; G9169-GN-CK; J0696; J1650; J1953; J3010

== ENCOUNTER 2017-08-24 18:54 | Inpatient (IN) | payer OTHER, MEDICAID ==
--- NOTE | 2017-08-24 18:56 | EDPHY ---
H & P Time Seen by Provider: 08/24/17 18:56 HPI/ROS: CHIEF COMPLAINT: AMS HISTORY OF PRESENT ILLNESS: The patient is a 62 y/o male with known seizure disorder and developmental delay who arrives via EMS after they found him altered and in poor living conditions during a welfare check today. He has been admitted here twice in the last 3 months with a similar presentation and his encephalopathy was thought to be most likely secondary to being postictal after seizure medication non- compliance. Today responders had to force entry to patient's residence during welfare check. They found him altered and nonverbal in dirty and malodorous living conditions with rotting food, dog feces, and debris blocking movement through the apartment. They did not see evidence of alcohol or illicit drugs on scene. EMS notes FD has filed multiple reports with APS regarding this patient due to these conditions. The patient has been unable to contribute to history, but does occasionally say "yes" in response to various questions. EMS BGL was 160. REVIEW OF SYSTEMS: Unable to obtain due to patient condition Past medical history: 1. Seizure disorder with medication noncompliance. Medications as of 07/30/17 - Keppra, Dilantin, Valproic acid 2. Developmental delay with expressive aphasia at times 3. Hypertension 4. Diabetes (? per EMS not in records here) 5. Previous presentations for encephalopathy of unclear etiology; once with mild rhabdomyolysis 6. Liver lesion on CT 7. Chronic disability Past surgical history: 1. Appendectomy Family history: Noncontributory Social history: Lives alone with dog. Per notes there is a [facility]) that comes in a couple times per week to quiz him on medication use, but cannot guarantee he takes them. Neurologist: Dr. Lloyd Purcell. Followed by [facility] - Ambrose He CPD cad administrator (cell [phone], office [phone] ext [phone]) Prior medical records reviewed including admission 05/07/17 and 07/30/17 for similar presentations. General Appearance: Alert. Obese.Disheveled, poor personal hygiene. Not answering questions consistently, occasionally says "yes". Vital signs reviewed. Blood pressure 150/101 on arrival. Head: Normocephalic atraumatic. Eyes: Pupils equal and round, no conjunctival injection, no discharge. Anicteric. ENT, Mouth: Mucous membranes are moist, no oropharyngeal erythema or edema. Neck: No lymphadenopathy, supple. No meningeal signs. Respiratory: Lungs are clear to auscultation; no wheezes, rales, or rhonchi. Cardiovascular: Regular rate and rhythm; no murmur, rub, or gallop. Chest: Gynomastia Gastrointestinal: Abdomen is soft and nontender, nontender yellow-green RUQ ecchymosis, no masses or organomegaly. Skin: Warm and dry, no rashes on exposed skin, normal color. Multiple scattered bruises on extremities. Back: Nontender to palpation over the thoracolumbar spine. No CVAT. There is an abrasion over the mid left posterior thorax. Extremities: No lower extremity edema, no calf tenderness or swelling. Neurological: Alert. Responds "yes" occasionally to questions, occasionally able to follow basic commands. He hears the spoken voice and turns toward me when I call his name. Moving all four extremities spontaneously. Symmetric facial expressions. ELLIOT. Extraocular movements full. Psychiatric: Unable to assess at this time. No agitation. Constitutional: Initial Vital Signs Temperature (C) 36.6 C 08/24/17 19:07 Heart Rate 82 08/24/17 19:07 Respiratory Rate 16 08/24/17 19:07 Blood Pressure 150/101 H 08/24/17 19:07 O2 Sat (%) 92 08/24/17 19:07 O2 Delivery Mode Room Air Allergies/Adverse Reactions: No Known Allergies Allergy (Unverified 01/13/17 20:06) Home Medications: Medication Instructions Recorded Divalproex ER [Depakote ER 500 MG 1,500 mg PO BID@04/06/12 (*)] Phenytoin Sodium Extended 200 mg PO DAILY@192904/06/12 [Dilantin (*)] Phenytoin Sodium Extended 300 mg PO DAILY@72904/06/12 [Dilantin (*)] Simvastatin [Zocor] 20 mg PO DAILY@192905/20/15 levETIRAcetam [Keppra 500 mg (*)] 250 mg PO BID@729,192905/20/15 Lisinopril [Zestril 5 mg (*)] 5 mg PO DAILY@72905/07/17 Ibuprofen [Motrin (*)] 200 - 400 mg PO Q6 PRN 07/30/17 Loratadine [Claritin 10 mg] 10 mg PO DAILY PRN 07/30/17 Multivitamins [Multivitamin (*)] 1 each PO DAILY@0730 07/30/17 Medical Decision Making ED Course/Re-evaluation: This is a 62 y/o male with seizure disorder and developmental delay who returns for the second time this month after being found altered in his apartment. During prior hospitalizations his encephalopathy was thought to be most likely related to postictal state while off seizure medications. Extensive case management notes during those admissions discussed outpatient resources and possible placement at [facility] with his dog should the patient struggle at home. On exam, he is alert, aphasic aside from occasionally answering "yes," moving all extremities, and has scattered healing ecchymosis on his torso and limbs. He has undergone extensive work up for these symptoms previously including brain imaging, lumbar puncture, labs, and multiple specialist consultations that did not clearly reveal underlying cause for acute presentation. Plan for IV and labs including antiepileptic medication levels at this time. Patient has been serially evaluated. At 7:30 p.m. And at 8:00 p.m. He continues to answer occasional questions with either"yes"or"no". He is not following commands. He is moving all 4 extremities spontaneously. Facial expressions remains symmetric. Abdomen is soft and nontender. Lungs are clear with distant breath sounds and poor respiratory effort on command. Oxygenation is normal. Labs reviewed. Bloodwork results do not provide an answer for his altered mental status. Dilantin level is low. I suspect medication noncompliance and likely seizure activity at home, resulting in bruises. He might be post-ictal in the ED. I have not seen evidence of seizure activity during his stay in the ED. No staring, automatisms, spasmodic motor activity. I have not pursued imaging, as he has had imaging in the past month with this presentation. I do not find evidence of infection. He does not have fever. Differential Diagnosis: Altered mental status including but not limited to postictal state, hypoglycemia , infectious process, electrolyte abnormality, head injury and intoxicants. - Data Points Laboratory Results: Laboratory Results 08/24/17 19:45 08/24/17 19:45 08/24/17 08/24/17 19:45 19:45 WBC 12.10 10^3/uL H 10^3/uL (3.80-9.50) RBC 4.93 10^6/uL 10^6/uL (4.40-6.38) Hgb 15.8 g/dL g/dL (13.7-17.5) Hct 45.5 % % (40.0-51.0) MCV 92.3 fL fL (81.5-99.8) MCH 32.0 pg pg (27.9-34.1) MCHC 34.7 g/dL g/dL (32.4-36.7) RDW 14.1 % % (11.5-15.2) Plt Count 177 10^3/uL 10^3/uL (150-400) MPV 12.8 fL H fL (8.7-11.7) Neut % (Auto) 57.1 % % (39.3-74.2) Lymph % (Auto) 32.1 % % (15.0-45.0) Emmet % (Auto) 9.2 % % (4.5-13.0) Eos % (Auto) 0.6 % % (0.6-7.6) Baso % (Auto) 0.6 % % (0.3-1.7) Nucleat RBC Rel Count 0.0 % % (0.0-0.2) Absolute Neuts (auto) 6.92 10^3/uL H 10^3/uL (1.70-6.50) Absolute Lymphs (auto) 3.88 10^3/uL H 10^3/uL (1.00-3.00) Absolute Monos (auto) 1.11 10^3/uL H 10^3/uL (0.30-0.80) Absolute Eos (auto) 0.07 10^3/uL 10^3/uL (0.03-0.40) Absolute Basos (auto) 0.07 10^3/uL 10^3/uL (0.02-0.10) Absolute Nucleated RBC 0.00 10^3/uL 10^3/uL (0-0.01) Immature Gran % 0.4 % % (0.0-1.1) Immature Gran # 0.05 10^3/uL 10^3/uL (0.00-0.10) Sodium 141 mEq/L mEq/L (135-145) Potassium 4.4 mEq/L mEq/L (3.5-5.2) Chloride 103 mEq/L mEq/L (97-110) Carbon Dioxide 24 mEq/l mEq/l (22-31) Anion Gap 14 mEq/L mEq/L (8-16) BUN 17 mg/dL mg/dL (7-23) Creatinine 0.7 mg/dL mg/dL (0.7-1.3) Estimated GFR > 60 Glucose 97 mg/dL mg/dL (70-100) Calcium 9.4 mg/dL mg/dL (8.5-10.4) Creatine Kinase 85 IU/L IU/L (0-224) Phenytoin < 3.0 mcg/mL L mcg/mL (10.0-20.0) Valproic Acid 116.1 mcg/mL mcg/mL (50.0-150.0) Departure - Departure Disposition: [facility] Inpatient Acute Clinical Impression: Seizure disorder, Cognitive developmental delay Altered mental status Qualifiers: Altered mental status type: stupor Qualified Code(s): R40.1 - Stupor Condition: Fair Report Scribed for: Marguerite Schmid Report Scribed by: Sarai Medina Date of Report: 08/24/17 Time of Report: 19:12 Physician Review and Approval Statement: 08/24/17 18:56 Portions of this note were transcribed by the medical concierge. I, Dr. Marguerite Schmid, personally performed the history, physical exam, and medical decision- making; and confirmed the accuracy of the information in the transcribed note.
[2017-08-24 20:13] LABS: PLATELET COUNT 177 10^3/uL (150-400)
[2017-08-24 20:24] LABS: CREATINE KINASE 85 IU/L (0-224)
[2017-08-24] MEDS ORDERED: ONDANSETRON 4 MG/2 ML VIAL IVP PRN (21:22)
[2017-08-24] MEDS ORDERED: ACETAMINOPHEN 325 MG TAB PO PRN (21:22)
[2017-08-24] MEDS ORDERED: ONDANSETRON DISINTEGRATING 4 MG TAB PO PRN (21:22)
--- NOTE | 2017-08-24 22:36 | PDGENHP ---
History and Physical - Chief Complaint Failure to thrive, AMS - History of Present Illness 62 yo M w/ hx of developmental delay and seizure d/o presents via EMS for failure to thrive and AMS. Patient was found by EMS today after a welfare check was requested. FD had to break in to his apartment, per report. Upon entering his home was found in disarray and patient was minimally responsive and unkempt , so he was brought in to ED for evaluation. Once in ED his evaluations has been mostly unremarkable. He is alert and calm, but only answering questions with "yes" and "no". He is inconsistently following commands for me but denies pain or distress. Review of records reveals two very similar presentations over the last few months. History Information - Allergies/Home Medication List Allergies/Adverse Reactions: No Known Allergies Allergy (Unverified 01/13/17 20:06) Home Medications: Divalproex ER [Depakote ER 500 MG (*)] 1,500 mg PO BID@04/06/12 [Last Taken 07/30/17 07:30] Phenytoin Sodium Extended [Dilantin (*)] 200 mg PO DAILY@192904/06/12 [Last Taken 07/29/17] Phenytoin Sodium Extended [Dilantin (*)] 300 mg PO DAILY@72904/06/12 [Last Taken 07/30/17] Simvastatin [Zocor] 20 mg PO DAILY@192905/20/15 [Last Taken 07/29/17] levETIRAcetam [Keppra 500 mg (*)] 250 mg PO BID@05/20/15 [Last Taken 07/30/17 07:30] Lisinopril [Zestril 5 mg (*)] 5 mg PO DAILY@72905/07/17 [Last Taken 07/30/17] Ibuprofen [Motrin (*)] 200 - 400 mg PO Q6 PRN 07/30/17 [Last Taken Unknown] Loratadine [Claritin 10 mg] 10 mg PO DAILY PRN 07/30/17 [Last Taken Unknown] Multivitamins [Multivitamin (*)] 1 each PO DAILY@72907/30/17 [Last Taken Unknown] I have personally reviewed and updated: family history, medical history - Past Medical History Additional medical history: Developmental delay. Seizure disorder. Hypertension. Previous presentations for encephalopathy of unclear etiology. Suspected liver hemangioma - Surgical History Additional surgical history: Appendectomy - Family History Additional family history: Father and 2 siblings all with seizure disorder - Social History Smoking Status: Never smoked Additional social history: [place] [facility] [place] of Systems Review of Systems: ROS: 10pt was reviewed & negative except for what was stated in HPI & below Physical Exam Physical Exam: Temp Pulse Resp BP Pulse Ox 36.6 C 82 16 150/101 H 92 08/24/17 19:07 08/24/17 19:07 08/24/17 19:07 08/24/17 19:07 08/24/17 19:07 Constitutional: obese, unkempt Eyes: PERRL, EOMI Ears, Nose, Mouth, Throat: moist mucous membranes, ears appear normal Cardiovascular: regular rate and rhythym, no murmur, rub, or gallop Respiratory: no respiratory distress, clear to auscultation Gastrointestinal: normoactive bowel sounds, soft, non-tender abdomen Skin: warm, other (Scattered ecchymoses) Neurologic: CN II-XII Intact, other (Not answering questions to assess orientation), No weakness Psychiatric: encephalopathic, poor insight Lab Data & Imaging Review 08/24/17 19:45 08/24/17 19:45 WBC 12.10 10^3/uL (3.80-9.50) H 08/24/17 19:45 RBC 4.93 10^6/uL (4.40-6.38) 08/24/17 19:45 Hgb 15.8 g/dL (13.7-17.5) 08/24/17 19:45 Hct 45.5 % (40.0-51.0) 08/24/17 19:45 MCV 92.3 fL (81.5-99.8) 08/24/17 19:45 MCH 32.0 pg (27.9-34.1) 08/24/17 19:45 MCHC 34.7 g/dL (32.4-36.7) 08/24/17 19:45 RDW 14.1 % (11.5-15.2) 08/24/17 19:45 Plt Count 177 10^3/uL (150-400) 08/24/17 19:45 MPV 12.8 fL (8.7-11.7) H 08/24/17 19:45 Neut % (Auto) 57.1 % (39.3-74.2) 08/24/17 19:45 Lymph % (Auto) 32.1 % (15.0-45.0) 08/24/17 19:45 Pierce % (Auto) 9.2 % (4.5-13.0) 08/24/17 19:45 Eos % (Auto) 0.6 % (0.6-7.6) 08/24/17 19:45 Baso % (Auto) 0.6 % (0.3-1.7) 08/24/17 19:45 Nucleat RBC Rel Count 0.0 % (0.0-0.2) 08/24/17 19:45 Absolute Neuts (auto) 6.92 10^3/uL (1.70-6.50) H 08/24/17 19:45 Absolute Lymphs (auto) 3.88 10^3/uL (1.00-3.00) H 08/24/17 19:45 Absolute Monos (auto) 1.11 10^3/uL (0.30-0.80) H 08/24/17 19:45 Absolute Eos (auto) 0.07 10^3/uL (0.03-0.40) 08/24/17 19:45 Absolute Basos (auto) 0.07 10^3/uL (0.02-0.10) 08/24/17 19:45 Absolute Nucleated RBC 0.00 10^3/uL (0-0.01) 08/24/17 19:45 Immature Gran % 0.4 % (0.0-1.1) 08/24/17 19:45 Immature Gran # 0.05 10^3/uL (0.00-0.10) 08/24/17 19:45 Sodium 141 mEq/L (135-145) 08/24/17 19:45 Potassium 4.4 mEq/L (3.5-5.2) 08/24/17 19:45 Chloride 103 mEq/L (97-110) 08/24/17 19:45 Carbon Dioxide 24 mEq/l (22-31) 08/24/17 19:45 Anion Gap 14 mEq/L (8-16) 08/24/17 19:45 BUN 17 mg/dL (7-23) 08/24/17 19:45 Creatinine 0.7 mg/dL (0.7-1.3) 08/24/17 19:45 Estimated GFR > 60 08/24/17 19:45 Glucose 97 mg/dL (70-100) 08/24/17 19:45 Calcium 9.4 mg/dL (8.5-10.4) 08/24/17 19:45 Creatine Kinase 85 IU/L (0-224) 08/24/17 19:45 Phenytoin < 3.0 mcg/mL (10.0-20.0) L 08/24/17 19:45 Valproic Acid 116.1 mcg/mL (50.0-150.0) 08/24/17 19:45 Assessment & Plan Assessment: 62 yo M w/ hx of developmental delay and seizure d/o presents via EMS for failure to thrive and AMS. Plan: 1. Acute encephalopathy - Unclear etiology, perhaps 2/2 post-ictal state. H&P by Dr. Richardson dated 07/30/17 details very similar presentation. During that admission work-up was unrevealing of etiology and presentation was attributed to post-ictal state from medication non-compliance. Noting that patient is calm , cooperative, and denying complaints with normal vital signs, I feel a conservative approach with observation and continuation of home anti-epileptics is sufficient. - Admit to inpatient status noting inability to care for self - Monitor electrolytes, check UA - Seizure precautions 2. Seizure d/o - On several anti-epileptics as outpatient, needs med reconciliation. I suspect significant non-compliance noting the state of patient 's house noted by EMS on day of admission. It appears patient will need a higher level of care to maintain a safe environment. - Continue home medications - Seizure precautions 3. Developmental delay - This is clearly complicating the patient's ability to care for himself at this time. - Case management consult placed 4. HTN - On lisinopril as outpatient Diet - Regular Code - Full Ppx- LMWH Dispo - Admit to inpatient status noting inability to care for himself independently
[2017-08-25] MEDS ORDERED: D5W 1/2 NS 1,000 ML IV SCH (01:30)
[2017-08-25] MEDS ORDERED: IBUPROFEN 200 MG TAB PO PRN (07:56)
[2017-08-25] MEDS: DIVALPROEX ER 500 MG TAB PO SCH ×2 (10:23→21:07)
[2017-08-25] MEDS: ENOXAPARIN 40 MG/0.4 ML SYR SC SCH ×2 (10:23→21:09)
[2017-08-25] MEDS: PHENYTOIN SODIUM EXTENDED 100 MG CAP PO SCH ×3 (10:24→21:17)
[2017-08-25] MEDS: levETIRAcetam 250 MG TAB PO SCH ×2 (10:25→21:08)
[2017-08-25] MEDS ORDERED: LACTULOSE 20 GM/30 ML UDCUP PO PRN (10:51)
[2017-08-25] MEDS ORDERED: MAGNESIUM HYDROXIDE 30 ML UDCUP PO PRN (10:51)
[2017-08-25] MEDS ORDERED: BISACODYL 10 MG SUPP PR PRN (10:51)
--- NOTE | 2017-08-25 10:52 | HOSPPROG ---
Hospitalist Progress Note Assessment/Plan: Patient is a 62-year-old male who has a history of developmental delay and seizures. He was found by EMS after being evaluated by a welfare check. Upon entering his home it was in disarray and patient was minimally responsive and unkempt. He was admitted for failure to thrive and altered mental status. Today is my 1st encounter with the patient. Chart reviewed. * acute encephalopathy -could have been secondary to a post ictal state. -he may have not been compliant with his medications. -phenytoin level is less than 3, valproic level will is within normal limits -reviewed his previous admission earlier this month and his presentation was the same -during my interview, he answers yes and no but is not talking much * seizure disorder -home meds have been resumed -on seizure precautions * developmentally delayed -there is concern that he is not able to take care of himself in his home environment -reviewed his care w CM, he can go to [facility] with his dog *hypertension -bp elevated this morning/ will follow *Plan: Vick clearly needs more care and closer monitoring. Plan is when he is clearer is to go to [facility]. Subjective: Vick is answering yes and no when I ask him questions. he says 'no ' when I ask him if he is in pain Objective: Vital Signs Temp Pulse Resp BP Pulse Ox 36.8 C 73 16 152/95 H 92 08/25/17 07:26 08/25/17 07:26 08/25/17 07:26 08/25/17 07:26 08/25/17 07:26 Laboratory Results 08/25/17 04:06 08/24/17 08/25/17 08/26/17 05:59 05:59 05:59 Intake Total 566 Balance 566 - Physical Exam Constitutional: chronically ill appearing, obese Eyes: PERRL Ears, Nose, Mouth, Throat: hearing normal Cardiovascular: regular rate and rhythym Respiratory: no respiratory distress Skin: warm Neurologic: other (alert, but is only saying yes and no) Psychiatric: other (developmentally delayed) ICD10 Worksheet Patient Problems: Problems Problem Status Onset Altered mental status Acute Cognitive developmental delay Acute Seizure disorder Acute Closed fracture of upper end of humerus Active Abrasion Acute Closed fracture of medial condyle of distal end of right femur Acute Frequent falls Acute Head injury Acute Multiple abrasions Acute Multiple contusions Acute Seizure Acute Sepsis Acute
--- NOTE | 2017-08-25 10:59 | PDMN ---
Medical Necessity Medical necessity: Pt meets IP criteria per MD; est los >2 mn for eval/tx of acute encephalopathy of unclear etiology w/failure to thrive; pt lives alone, has no support & is unable to care for himself; hx recent hospitalizations w/ very similar presentations, developmental delay, htn & seizure disorder w/ suspected medication non-compliance; admit for further workup/monitoring, IVFs, therapies & CM consult for dc planning; per H&P & order 08/24/17
[2017-08-25] MEDS ORDERED: SENNOSIDES/DOCUSATE SODIUM TAB PO SCH (11:00)
[2017-08-25] MEDS ORDERED: POLYETHYLENE GLYCOL 3350 17 GM PKT PO SCH (11:00)
[2017-08-25] MEDS: LISINOPRIL 5 MG TAB PO SCH (11:23)
--- NOTE | 2017-08-25 12:22 | ASMTCMCOM ---
CM Note CM Note Notes: Pt in after welfare check found pt with AMS and FTT in unsanitary living conditions. Pt known to [facility], last admissions was 07/30/17 to 08/04/17. D/c plan then was home with [facility], if pt was not safe at home [facility] would direct admit to [facility] where pt can live w dog [place]. Spoke w Ambrose at [facility] ([phone]) she states [facility] RN called well check and had been going in weekly. While pt being home was not going well Ambrose reports she does not know why the direct admit to was not done. Ambrose reports pt medication box has been broken and it has been like pulling teeth to get HCBS to response and get a new one. Referral sent to [facility] in [employer]. PASRR triggered for developmental delay and faxed to [facility]. OT/PT rec SNF, [facility] is assessing. Pt still open w APS worker is Charbel Roper [phone]. Pt unable to verbalize where [place] is. Ambrose and [facility] staff Keiko Oates confirm [place] is at [facility], they have [place] currently for 5 days and if more time required contact [facility] at [phone]. VM from Jordy Richardson w [facility] ([phone]) received level 1 PASRR he will approve for 60 rehab stay, will need name of rehab facility. Once CM receives confirmation from will alert Jordy. [facility]CO to follow. Date Signed: 08/25/2017 12:21 PM Electronically Signed By:PUMA Brown
[2017-08-25] MEDS ORDERED: levETIRAcetam 500 MG TAB PO SCH (19:30)
[2017-08-25] MEDS ORDERED: NON-FORMULARY NEW DRUG (Simvastatin [Zocor] 20 MG) PO SCH (19:30)
[2017-08-25] MEDS: ATORVASTATIN CALCIUM 10 MG TAB PO SCH (21:09)
[2017-08-26] MEDS ORDERED: LISINOPRIL 5 MG TAB PO SCH (07:30)
[2017-08-26] MEDS: ENOXAPARIN 40 MG/0.4 ML SYR SC SCH ×2 (08:36→19:59)
[2017-08-26] MEDS: DIVALPROEX ER 500 MG TAB PO SCH ×2 (08:37→19:58)
[2017-08-26] MEDS: levETIRAcetam 250 MG TAB PO SCH ×2 (08:37→19:58)
[2017-08-26] MEDS: MULTIVITAMINS 1 EACH TAB PO SCH (08:37)
[2017-08-26] MEDS: LISINOPRIL 5 MG TAB PO SCH (08:37)
--- NOTE | 2017-08-26 12:52 | HOSPPROG ---
Hospitalist Progress Note Assessment/Plan: Patient is a 62-year-old male who has a history of developmental delay and seizures. He was found by EMS after being evaluated by a welfare check. Upon entering his home it was in disarray and patient was minimally responsive and unkempt. He was admitted for failure to thrive and altered mental status. * acute encephalopathy -could have been secondary to a post ictal state. -he may have not been compliant with his medications. -phenytoin level is less than 3, valproic level will is within normal limits -reviewed his previous admission earlier this month and his presentation was the same -during my interview, he answers yes and no. -his friend, Mary Jane is at the bedside, he is able to tell me her name and is more talkative with her * seizure disorder -home meds have been resumed -on seizure precautions * developmentally delayed -there is concern that he is not able to take care of himself in his home environment -reviewed his care w , he can go to [facility] with his dog *hypertension -better today *Plan: it is very difficult to tell if patient is decisional, he mainly says ' yes' or 'no' to my questions. I took care of Carl in 2017 and he was much more interactive and able to discuss his care. Today, he answers appropriately but concerned he doesn't have the ability to manage his care at home without 24 hour care. He has had multiple admissions for encephalopathy. As he clears, will further try to assess his capacity. He is better today than compared to yesterday. I believe he needs a proxy because he is developmentally delay. The fact that he has had multiple admissions for similar presentations warrants higher care. Will likely go to [facility] so he can have his dog with him. Will ask neurology to help evaluate his decisional capacity tomorrow. They have seen him in the past. He has a friend, Mary Jane Jen, who worked as a TAPE [employer]INGER helping care for him. She knows him well, her # is [phone]. Subjective: Vick answers yes when I asked him if he is feeling ok. Objective: Vital Signs Temp Pulse Resp BP Pulse Ox 36.8 C 79 20 132/83 H 97 08/26/17 11:35 08/26/17 11:35 08/26/17 11:35 08/26/17 11:35 08/26/17 11:35 Laboratory Results 08/25/17 04:06 08/25/17 08/26/17 08/27/17 05:59 05:59 05:59 Intake Total 566 300 Output Total 300 Balance 566 0 - Physical Exam Constitutional: appears nourished, not in pain, chronically ill appearing, obese Eyes: PERRL Ears, Nose, Mouth, Throat: hearing normal Cardiovascular: regular rate and rhythym Respiratory: no respiratory distress Gastrointestinal: normoactive bowel sounds Skin: warm, normal color Musculoskeletal: generalized weakness Neurologic: other (alert and follow commands, answers a few of my questions.) Psychiatric: interacting appropriately ICD10 Worksheet Patient Problems: Problems Problem Status Onset Altered mental status Acute Cognitive developmental delay Acute Seizure disorder Acute Closed fracture of upper end of humerus Active Abrasion Acute Closed fracture of medial condyle of distal end of right femur Acute Frequent falls Acute Head injury Acute Multiple abrasions Acute Multiple contusions Acute Seizure Acute Sepsis Acute
--- NOTE | 2017-08-26 16:47 | ASMTCMCOM ---
CM Note CM Note Notes: Today Emery Morales with ethics consulted, note in chart. Emery spoke w pt friend/associate account manager Vandana who expressed interest in participating in proxy process and potentially acting as proxy. Vandana provided the name/number for pt sister Rhea Means. Hospitalist Isaac verbalized pt currently does not have medical decision-making abilities. CM now needs to determine a proxy decision maker. Thorough chart review completed and interested parties are following: Sister Rhea Means [phone] Friend/manager call center at [facility] Vandana and Nathaniel Wali - [phone] Friend Martina Youssefkerman [phone] 15:16 Voicemail left for Martina. 15:27 Voicemail left for Rhea Means. Proxy process to be continued tomorrow to allow Martina and Rhea time to call CM back. Anastacia with [facility] still assessing pt for admission, need to review the approved PASRR. CM contacted Jordy Richardson [phone] with [facility] contacted to put [facility] as the SNF and the PASRR was sent to . will also talk to Vandana to ask if dog has temperament to be in a fpc. Case management will continue to follow case. Date Signed: 08/26/2017 04:47 PM Electronically Signed By:PUMA Brown
[2017-08-26] MEDS: PHENYTOIN SODIUM EXTENDED 100 MG CAP PO SCH (19:58)
[2017-08-26] MEDS: ATORVASTATIN CALCIUM 10 MG TAB PO SCH (19:58)
[2017-08-27] MEDS: levETIRAcetam 250 MG TAB PO SCH ×2 (08:14→22:47)
[2017-08-27] MEDS: MULTIVITAMINS 1 EACH TAB PO SCH (08:14)
[2017-08-27] MEDS: LISINOPRIL 5 MG TAB PO SCH (08:14)
[2017-08-27] MEDS: DIVALPROEX ER 500 MG TAB PO SCH ×2 (08:14→22:47)
[2017-08-27] MEDS: PHENYTOIN SODIUM EXTENDED 100 MG CAP PO SCH ×2 (08:14→22:47)
[2017-08-27] MEDS: ENOXAPARIN 40 MG/0.4 ML SYR SC SCH ×2 (08:15→22:46)
--- NOTE | 2017-08-27 09:20 | NEUROPROG ---
Assessment: HOSPITAL NEUROLOGY CONSULT REQUESTING: Chantel Gray NP REASON: seizure, failure to thrive, decisional capacity HPI: 62 year old man with a history of persistent cognitive delay and epilepsy who presented to our ED 08/24 via EMS due to AMS and suspected postictal state. He is well known to me from multiple prior admissions for seizures and postictal state in the setting of medication noncompliance and low/absent anti-seizure drug levels. Patient was transported to our ED yesterday after being found in his apartment confused. As per the record, a welfare check was being done and nobody was answering the door, so it was broken down. Responders found the patient's apartment to be in disarray with dog feces on the floor, rotting food and debris scattered about the floor blocking pathways around the apartment. He was brought to our ED, where his mental status cleared to baseline. He is supposed to be maintained on valproate 1500mg BID, phenytoin 300mg AM/200mg PM and levetiracetam 250mg BID. Valproate and phenytoin levels were obtained showing therapeutic VPA but absent phenytoin - levetiracetam levels drawn and pending. He has had 4 ED evaluations with 3 admission for seizures/postictal state in the past year with medication noncompliance as etiology (with objective evidence of noncompliance with low/absent drug levels). Prior EMS calls have resulted in first responders finding his apartment in disarray. Patient is always amnestic of his seizures. He has a child-like affect and cognitive delay at baseline, usually with a paucity of speech with medical providers - I have previously discussed with his outpatient neurologist, Dr. Purcell, and this is his baseline. The main concern now is whether the patient can continue to safely care for himself given his multiple admission with medication noncompliance and the state of his living conditions. ROS: As per the HPI, otherwise a complete 12 point ROS was performed and is negative ALLERGIES AND MEDS: As recorded in the EMR - reviewed and reconciled PFSH: As per the intake H&P by Dr. Clemente from 08/24 EXAM: VS reviewed in EMR GEN: WDWN laying in NAD HEENT: NCAT, sclera anicteric, conjunctiva not injected, MMM, oropharynx clear, no scalp tenderness NECK: supple, nontender, no meningismus CV: RRR s1 s2 wo m/r/c/g. Carotid pulses 2+ wo bruit NEURO: MS: awake, alert, oriented to all spheres. Paucity of speech - answers in simple 1-3 word phrases that are appropriate. Speech nondysarthric. No language disturbance. Follows commands. Attends to both sides. Amnestic of events leading to admission. Mood euthymic. Child-like affect. Poor insight. Poor judgement. CN: pupils 3mm round and reactive. Fundi with sharp discs. VFF. Primary gaze centered. Full ocular motility. Facial sensation preserved. Face symmetric. Hearing grossly intact to finger rub. Palatoglossal movements intact. Shoulder shrug and head turn strong. MOTOR: normal bulk/tone. No adventitial movements. Full power throughout. SENSORY: intact to all modalities throughout. No extinction. COORD: no ataxia FN/HS. Som preserved. REFLEX: plantars down. No clonus. DTRS 2/4. GAIT: deferred to PT safety eval. DATA REVIEW: Labs reviewed in EMR PERSONALLY INTERPRETED RESULTS AND DATA: Nil IMPRESSION AND RECOMMENDATIONS: // SEIZURE // MEDICATION NONCOMPLIANCE // HISTORY OF COGNITIVE DELAY // HISTORY OF EPILEPSY // FAILURE TO THRIVE // POOR DECISION MAKING CAPACITY Patient with yet another breakthrough seizure as evidenced by post-ictal state with rapid clearing to baseline and leukocytosis and no other systemic inflammatory signs/symptoms. Phenytoin level remains undetectable, VPA level therapeutic and LVT level pending. This represents hospital visit number 4 this year for breakthrough seizure in the setting of medication noncompliance. His apartment has been found in disarray again, with rather concerning reports of his living conditions with dog feces and rotting food and debris around his apartment. I think these recurrent events and findings are evidence that the patient is unable to safely care for himself given his cognitive challenges. Certainly recurrent seizures in the setting of medication noncompliance does pose a risk of harm to himself if he were to have an event of prolonged seizure, ie status epilepticus; risk of sudden with epilepsy (SUDEP) is also a risk. I do not think he has the cognitive capacity, insight or judgement to safely make decisions for himself, as supported by other providers. It would be my strong medical recommendation he be placed in a supervised living situation going forward. I have discussed with the primary team who is in agreement. Ethics on board. Case management will be assisting with facilitating transition. He is back on his prescribed antiseizure medication regimen. Continue with seizure precautions. He can followup with Dr. uPrcell. Will sign off. Recall PRN. Objective: Vital Signs Temp Pulse Resp BP Pulse Ox 36.8 C 74 17 133/87 H 94 08/27/17 07:34 08/27/17 07:34 08/27/17 07:34 08/27/17 08:14 08/27/17 07:34 Laboratory Results 08/25/17 04:06 08/26/17 08/27/17 08/28/17 05:59 05:59 05:59 Intake Total 300 975 Output Total 300 Balance 0 975 Allergies/Adverse Reactions: No Known Allergies Allergy (Unverified 01/13/17 20:06)
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
--- NOTE | 2017-08-27 12:35 | HOSPPROG ---
Hospitalist Progress Note Assessment/Plan: Patient is a 62-year-old male who has a history of developmental delay and seizures. He was found by EMS after being evaluated by a welfare check. Upon entering his home it was in disarray and patient was minimally responsive and unkempt. He was admitted for failure to thrive and altered mental status. * acute encephalopathy - secondary to a post ictal state. -he may have not been compliant with his medications. -phenytoin level is less than 3, valproic level will is within normal limits -reviewed his previous admission earlier this month and his presentation was the same -he is better today, slowly more conversant, he is very 'child like' * seizure disorder -home meds have been resumed -on seizure precautions * developmentally delayed -he has been admitted multiple times for the above -he can only answer in general 'yes' and 'no'/ he clearly can't take care of himself -he was incont of stool this morning *hypertension -better today *Plan: I believe that Carl needs a proxy for making decisions for him. He lives in an apt and has proven he is unsafe to live alone any further. Ultimately, he will have a poor outcome if discharged home even with help. He has a friend, Mary Jane Li, who worked as a BUSINESS EDUCATION INSTRU[employer] helping care for him. She knows him well, her # is [phone]. Subjective: Carl smiles during my evaluation and answers 'yes' frequently. Objective: Vital Signs Temp Pulse Resp BP Pulse Ox 36.8 C 74 17 133/87 H 94 08/27/17 07:34 08/27/17 07:34 08/27/17 07:34 08/27/17 08:14 08/27/17 07:34 Laboratory Results 08/25/17 04:06 08/26/17 08/27/17 08/28/17 05:59 05:59 05:59 Intake Total 300 975 Output Total 300 Balance 0 975 - Physical Exam Constitutional: no apparent distress Eyes: PERRL Ears, Nose, Mouth, Throat: hearing normal Respiratory: no respiratory distress Skin: warm Musculoskeletal: generalized weakness Neurologic: other (alert) Psychiatric: interacting appropriately ICD10 Worksheet Patient Problems: Problems Problem Status Onset Altered mental status Acute Cognitive developmental delay Acute Seizure disorder Acute Closed fracture of upper end of humerus Active Abrasion Acute Closed fracture of medial condyle of distal end of right femur Acute Frequent falls Acute Head injury Acute Multiple abrasions Acute Multiple contusions Acute Seizure Acute Sepsis Acute
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
--- NOTE | 2017-08-27 17:11 | ASMTCMCOM ---
CM Note CM Note Notes: Medical Proxy decision-maker determined to be Vandana Keyes [phone], (see proxy note). A third attempt was made to reach sister and she did not respond to participate in the process. Attempted to reach Tacho with [employer] for update, no call back by close of business. [employer] updated, spoke juan f Tran who reports HS has authorization now to hold Astatula until 09/03/17. CM will have to call [phone] if more time required but CM will continually update them. Marc emailed [facility] vaccine records, they gave Astatula all his shots in April 2017 so Astatula is current until April 2018. These records were faxed to [facility] and are in chart. CM to follow. Date Signed: 08/27/2017 05:10 PM Electronically Signed By:PUMA Brown
[2017-08-27] MEDS: ATORVASTATIN CALCIUM 10 MG TAB PO SCH (22:47)
[2017-08-28 07:28] VITALS: RESP 16
[2017-08-28] MEDS: ENOXAPARIN 40 MG/0.4 ML SYR SC SCH ×2 (07:54→20:13)
[2017-08-28] MEDS: DIVALPROEX ER 500 MG TAB PO SCH ×2 (07:54→20:12)
[2017-08-28] MEDS: PHENYTOIN SODIUM EXTENDED 100 MG CAP PO SCH ×2 (07:54→20:13)
[2017-08-28] MEDS: levETIRAcetam 250 MG TAB PO SCH ×2 (07:54→20:13)
[2017-08-28] MEDS: LISINOPRIL 5 MG TAB PO SCH (07:54)
[2017-08-28] MEDS: MULTIVITAMINS 1 EACH TAB PO SCH (07:54)
--- NOTE | 2017-08-28 13:39 | HOSPPROG ---
Hospitalist Progress Note Assessment/Plan: Vick is a 62-year-old male who has a history of developmental delay and seizures. He was found by EMS after being evaluated by a welfare check. Admitted 08/24 and this is 4th hospitalization within 1 year. His home was found to be in disarray with dog feces and rotting food on floor and patient was minimally responsive and unkempt. He was admitted for failure to thrive and altered mental status. * acute encephalopathy - secondary to a post ictal state. -he may have not been compliant with his medications. -phenytoin level is less than 3, valproic level will is within normal limits - Levetiracetam level pending -reviewed his previous admission earlier this month and his presentation was the same -he is able to answer yes and no, which per neurology is his baseline * seizure disorder -home meds have been resumed -on seizure precautions * developmentally delayed -he has been admitted multiple times for the above -he can only answer in general 'yes' and 'no'/ he clearly can't take care of himself -he was incont of stool yesterday *hypertension -appears controlled on Lisinopril (outpatient med) *Plan: Vandana alcazar has been appointed proxy. Sister Rhea has not responded to 3 attempts to contact. Pt awaiting placement likely [facility]. His dog German is at the [facility] and can likely go with him to if they deem him safe to be in that kind of setting. Subjective: Answers no to pain/discomfort. Objective: Vital Signs Temp Pulse Resp BP Pulse Ox 98.4 F 77 16 124/86 H 93 08/28/17 07:26 08/28/17 07:26 08/28/17 07:26 08/28/17 07:54 08/28/17 07:26 Laboratory Results 08/25/17 04:06 08/27/17 08/28/17 08/29/17 05:59 05:59 05:59 Intake Total 975 Balance 975 - Physical Exam Constitutional: no apparent distress, appears nourished Eyes: anicteric sclera Ears, Nose, Mouth, Throat: hearing normal Cardiovascular: regular rate and rhythym, no murmur, rub, or gallop Respiratory: no respiratory distress Gastrointestinal: normoactive bowel sounds, soft, non-tender abdomen Skin: warm, normal color Psychiatric: not anxious ICD10 Worksheet Patient Problems: Problems Problem Status Onset Closed fracture of upper end of humerus Active Frequent falls Acute Head injury Acute Abrasion Acute Closed fracture of medial condyle of distal end of right femur Acute Seizure Acute Multiple contusions Acute Multiple abrasions Acute Altered mental status Acute Sepsis Acute Seizure disorder Acute Cognitive developmental delay Acute
[2017-08-28] MEDS: ATORVASTATIN CALCIUM 10 MG TAB PO SCH (20:13)
[2017-08-29] MEDS: MULTIVITAMINS 1 EACH TAB PO SCH (07:37)
[2017-08-29] MEDS: PHENYTOIN SODIUM EXTENDED 100 MG CAP PO SCH ×2 (07:37→20:40)
[2017-08-29] MEDS: DIVALPROEX ER 500 MG TAB PO SCH ×2 (07:37→20:40)
[2017-08-29] MEDS: LISINOPRIL 5 MG TAB PO SCH (07:37)
[2017-08-29] MEDS: ENOXAPARIN 40 MG/0.4 ML SYR SC SCH ×2 (07:40→20:39)
[2017-08-29] MEDS: levETIRAcetam 250 MG TAB PO SCH ×2 (07:40→20:40)
[2017-08-29] MEDS ORDERED: LISINOPRIL 5 MG TAB PO SCH (13:18)
--- NOTE | 2017-08-29 13:20 | HOSPPROG ---
Hospitalist Progress Note Assessment/Plan: Vick is a 62-year-old male who has a history of developmental delay and seizures. He was found by EMS after being evaluated by a welfare check. Admitted 08/24 and this is 4th hospitalization within 1 year for similar issues of medication noncompliance with resultant seizure. His home was found to be in disarray with dog feces and rotting food on floor and patient was minimally responsive and unkempt. He was admitted for failure to thrive and altered mental status. * acute encephalopathy - secondary to a post ictal state. -he may have not been compliant with his medications. -phenytoin level is less than 3, valproic level will is within normal limits - Levetiracetam level pending -reviewed his previous admission earlier this month and his presentation was the same -he is able to answer yes and no, which per neurology is his baseline * seizure disorder -home meds have been resumed -on seizure precautions * developmentally delayed -he has been admitted multiple times for the above -he can only answer in general 'yes' and 'no'/ he clearly can't take care of himself -he was incont of stool during hospital stay *hypertension -appears mildly elevated on several occasions during this admit/ will titrate Lisinopril *Ppx -On Enox *Dispo -safe for discharge once placement can be secured *Plan: Vandana alcazar has been appointed proxy. Sister Rhea has not responded to 3 attempts to contact. Pt awaiting placement likely [facility]. His dog [place] is at the [facility] and can likely go with him to if they deem him safe to be in that kind of setting. Subjective: "I am doing good." Not in pain. Comfortable. Objective: Vital Signs Temp Pulse Resp BP Pulse Ox 98.6 F 88 16 143/95 H 94 08/29/17 12:11 08/29/17 12:11 08/29/17 12:11 08/29/17 12:11 08/29/17 12:11 Laboratory Results 08/25/17 04:06 08/28/17 08/29/17 08/30/17 05:59 05:59 05:59 Intake Total 1450 400 Balance 1450 400 - Physical Exam Constitutional: appears nourished Eyes: anicteric sclera Cardiovascular: regular rate and rhythym Respiratory: no respiratory distress Gastrointestinal: normoactive bowel sounds, soft, non-tender abdomen ICD10 Worksheet Patient Problems: Problems Problem Status Onset Closed fracture of upper end of humerus Active Frequent falls Acute Head injury Acute Abrasion Acute Closed fracture of medial condyle of distal end of right femur Acute Seizure Acute Multiple contusions Acute Multiple abrasions Acute Altered mental status Acute Sepsis Acute Seizure disorder Acute Cognitive developmental delay Acute
[2017-08-29] MEDS: ATORVASTATIN CALCIUM 10 MG TAB PO SCH (20:40)
[2017-08-30 07:38] VITALS: PULSE 86; TEMP 98.6
--- NOTE | 2017-08-30 08:20 | HOSPPROG ---
Hospitalist Progress Note Assessment/Plan: Patient is a 62-year-old male who has a history of developmental delay and seizures. He was found by EMS after being evaluated by a welfare check. Upon entering his home it was in disarray and patient was minimally responsive and unkempt. He was admitted for failure to thrive and altered mental status. * acute encephalopathy - secondary to a post ictal state. -he may have not been compliant with his medications. -phenytoin level is less than 3, valproic level will is within normal limits -resolved, back to his baseline * seizure disorder -home meds have been resumed -on seizure precautions * developmentally delayed -he has been admitted multiple times for the above -he mainly answer in general 'yes' and 'no'/ he clearly can't take care of himself -he was incont of stool *hypertension -better today *Plan: Vandana Keyes has been appointed proxy. Sister Rhea has not responded to 3 attempts to contact. Pt awaiting placement likely [facility]. His dog German is at the [facility] and can likely go with him to if they deem him safe to be in that kind of setting. CM to let me know if patient can be dc to [facility]. He is medically clear to go. Subjective: Carl is very sleepy during my interview. Objective: Vital Signs Temp Pulse Resp BP Pulse Ox 37.0 C 86 16 138/97 H 98 08/30/17 07:28 08/30/17 07:28 08/30/17 07:28 08/30/17 07:28 08/30/17 07:28 Laboratory Results 08/25/17 04:06 08/29/17 08/30/17 08/31/17 05:59 05:59 05:59 Intake Total 1450 900 Balance 1450 900 - Physical Exam Constitutional: no apparent distress, appears nourished, obese Eyes: PERRL Ears, Nose, Mouth, Throat: hearing normal Cardiovascular: regular rate and rhythym Respiratory: no respiratory distress Gastrointestinal: normoactive bowel sounds Skin: warm Musculoskeletal: full muscle strength Neurologic: other (alert) Psychiatric: interacting appropriately ICD10 Worksheet Patient Problems: Problems Problem Status Onset Altered mental status Acute Cognitive developmental delay Acute Seizure disorder Acute Closed fracture of upper end of humerus Active Abrasion Acute Closed fracture of medial condyle of distal end of right femur Acute Frequent falls Acute Head injury Acute Multiple abrasions Acute Multiple contusions Acute Seizure Acute Sepsis Acute
[2017-08-30] MEDS: MULTIVITAMINS 1 EACH TAB PO SCH (08:41)
[2017-08-30] MEDS: DIVALPROEX ER 500 MG TAB PO SCH (08:41)
[2017-08-30] MEDS: PHENYTOIN SODIUM EXTENDED 100 MG CAP PO SCH (08:41)
[2017-08-30] MEDS: ENOXAPARIN 40 MG/0.4 ML SYR SC SCH (08:42)
[2017-08-30] MEDS: levETIRAcetam 250 MG TAB PO SCH (08:42)
--- NOTE | 2017-08-30 12:33 | ASMTCMCOM ---
JOSE FRANCISCO Note JOSE FRANCISCO Note Notes: Late entry not save in Allscripts yesterday by JOSE FRANCISCO Chaudhry: Spoke with Admissions at [facility] d/c. Pt is medically cleared for d/c per hospitalist. She requested proxy information and the PASRR which was sent via Allscripts. Apparently they did not receive the PASRR yesterday. BM will work with the [facility] in [facility] whether pt's dog is able to be with him at the SNF. Date Signed: 08/30/2017 12:33 PM Electronically Signed By:PUMA Brown
--- NOTE | 2017-08-30 12:42 | PDIAF ---
- Diagnosis Diagnosis: acute encephalopathy, seizure disorder Code Status: Full Code - Medication Management Discharge Medications: Medications to Continue on Transfer Divalproex ER [Depakote ER 500 MG (*)] 1,500 mg PO BID@04/06/12 [Last Taken 07/30/17 07:30] Phenytoin Sodium Extended [Dilantin (*)] 200 mg PO DAILY@192904/06/12 [Last Taken 07/29/17] Phenytoin Sodium Extended [Dilantin (*)] 300 mg PO DAILY@72904/06/12 [Last Taken 07/30/17] Simvastatin [Zocor] 20 mg PO DAILY@192905/20/15 [Last Taken 07/29/17] levETIRAcetam [Keppra 500 mg (*)] 250 mg PO BID@05/20/15 [Last Taken 07/30/17 07:30] Lisinopril [Zestril 5 mg (*)] 5 mg PO DAILY@72905/07/17 [Last Taken 07/30/17] Ibuprofen [Motrin (*)] 200 - 400 mg PO Q6 PRN 07/30/17 [Last Taken Unknown] Loratadine [Claritin 10 mg] 10 mg PO DAILY PRN 07/30/17 [Last Taken Unknown] Multivitamins [Multivitamin (*)] 1 each PO DAILY@72907/30/17 [Last Taken Unknown] Acetaminophen [Tylenol 325mg (*)] 650 mg PO Q4HRS PRN tab 08/30/17 [Last Taken Unknown] Discharge Medications: Refer to the Discharge Home Medication list for PRN reason. - Orders Services needed: Physical Therapy, Occupational Therapy Isolation Type: None Diet Texture: Regular Texture Diet, Thin Liquids, Meds Whole w/Liquids - Follow Up Care Current Providers and Referrals: Patient,NotPresent [Unknown] - As per Instructions
--- NOTE | 2017-08-30 14:44 | GDS ---
[f rep st] DISCHARGE SUMMARY DISCHARGE DIAGNOSES: 1. Acute encephalopathy secondary to a postictal state. 2. Seizure disorder. 3. Developmentally delayed. 4. Hypertension. CONSULTATION: Dr. Beckham. HISTORY: Briefly, the patient is a 62-year-old male who has a history of developmental delay and seizures. He was found by EMS after being evaluated by a welfare check. Upon entering his home, it was in disarray, and the patient was minimally responsive and unkempt. He has had several admissions for this. He was admitted for failure to thrive and altered mental status. There is concern that he has not been taking his medications. He has been living alone with support in the past. He clearly needs more support due to his developmentally delayed. He will be discharged to [facility] today. The plan is for them to obtain his dog and bring it to him. HOSPITAL COURSE: 1. Acute encephalopathy. It is likely that he probably was noncompliant with his medication. His phenytoin level is less than 3. His encephalopathy has resolved. He was postictal during his stay for the first day and a half. He is much improved. 2. Seizure disorder. Home medications have been resumed. 3. Developmentally delayed. In general, answers yes or no. He is very child- like in his interactions. He does follow commands and is appropriate. 4. Hypertension, on lisinopril. DISCHARGE CONDITION: Stable. Blood pressure is 138/97. Heart rate is 86. Respiratory rate is 16. O2 sats on room air 98%. Temperature is 37 degrees Celsius. DISCHARGE MEDICATIONS: Please see the EMR. DISCHARGE INSTRUCTIONS: 1. Further followup with Dr. Lloyd Purcell. 2. Make sure he is compliant with his medications. 3. If he develops fever, chills, chest pain, shortness of breath, or seizures, to return to the ER. Greater than 30 minutes discharging and coordinating his care. /[id number]/MODL MTDD
[2017-08-30 16:02] VITALS: BP 138/88; O2SAT 95
--- NOTE | 2017-08-30 16:56 | ASMTCMCOM ---
CM Note CM Note Notes: Pt medically stable for d/c to [facility]. Tacho in admissions reports they cannot accept dog, she does not provide a reason why and states the staff are trying to coordinate someone who can take [facility] while pt in [facility]. Vandana Keyes was updated and states while she cannot take [place] she is willing to help BM in any way. Tacho scheduled [facility] van transport for 1700. Charbel Roper with APS updated with a voicemail. Natasha at [facility] [phone] who reports someone from [facility] has been out to see [place] and [facility] [employer] has agreed to keep [place] until 09/05/17 to give BM time to assess. Date Signed: 08/30/2017 04:55 PM Electronically Signed By:PUMA Brown
== END 2017-08-30 17:06 | DRG 101 ==
LOC: EDUNIT# → F3N 22:40
PROVIDERS: ADMIT Internal Medicine; ATTEND Hospitalist
DX: G40.909 Epilepsy, unspecified, not intractable, without status epilepticus (principal); F05 Delirium due to known physiological condition; Z91.14 Patient's other noncompliance with medication regimen; F88 Other disorders of psychological development; I10 Essential (primary) hypertension
CPT/HCPCS: 80177-90; 92507-GN; 92523-GN; 92610-GN; 97116-GP; 97162-GP; 97166-GO; 97530-GP; 97535-GO; G8978-GP-CL; G8979-GP-CJ; G8987-GO-CK; G8988-GO-CJ; G8996-GN-CH; G8997-GN-CH; G8998-GN-CH; G9159-GN-CM; G9160-GN-CK; J1650

== ENCOUNTER → 2018-06-23 | Outpatient (CLI) | payer OTHER, MEDICAID | LOC: FIMAGING 12:12 | PROVIDERS: ATTEND Internal Medicine Geriatric Medicine | DX: G31.9 Degenerative disease of nervous system, unspecified (principal) ==

== ENCOUNTER → 2018-08-03 | Outpatient (CLI) | payer OTHER, MEDICAID | LOC: FIMAGING 11:19 | DX: R16.0 Hepatomegaly, not elsewhere classified (principal) | CPT/HCPCS: 78226; A9537 ==

== ENCOUNTER 2018-08-10 11:46 | Inpatient (IN) | payer OTHER, MEDICAID ==
[2018-08-10] MEDS ORDERED: LORazepam 1 MG TAB PO PRN (15:30)
[2018-08-10] MEDS: levETIRAcetam 500 MG TAB PO SCH ×2 (17:15→20:44)
[2018-08-10] MEDS: GABAPENTIN 300 MG CAP PO SCH ×2 (17:15→21:40)
[2018-08-10] MEDS: NS 1,000 ML IV SCH (17:15)
[2018-08-10] MEDS ORDERED: hydrALAZINE 20 MG/ML VIAL IVP PRN (18:02)
[2018-08-10] MEDS: risperiDONE 0.5 MG TAB PO SCH (21:40)
[2018-08-11] MEDS: NS 1,000 ML IV SCH (05:05)
[2018-08-11 05:28] LABS: PLATELET COUNT 254 10^3/uL (150-400)
[2018-08-11 05:36] LABS: INR 2.27 (0.83-1.16); PROTIME(PATIENT) 23.9 SEC (12.0-15.0)
[2018-08-11] MEDS: levETIRAcetam 500 MG TAB PO SCH ×2 (07:30→21:50)
[2018-08-11] MEDS: GABAPENTIN 300 MG CAP PO SCH ×3 (07:30→21:50)
--- NOTE | 2018-08-11 08:12 | EDPHY ---
H & P Stated Complaint: sent from dr patel office abnormal labs Time Seen by Provider: 08/10/18 11:50 HPI/ROS: CHIEF COMPLAINT: Jaundice HISTORY OF PRESENT ILLNESS: The patient has a history of seizure disorder and developmental delay. The patient was seen by his neurologist today noted to be jaundiced. This is an patient. The neurologist did note that the patient's liver function test had been rising over the past 1-2 weeks. Workup today 8 of the abnormal liver function test is unknown as the computer system is currently down. The patient himself is without acute complaints however his history is significantly limited by developmental delay. The patient currently denies any acute abdominal pain. He denies headache. He denies history of recent fall or trauma. REVIEW OF SYSTEMS: A comprehensive 10 point review of systems is otherwise negative aside from elements mentioned in the history of present illness. Source: Patient Exam Limitations: No limitations - Personal History Tetanus Vaccine Date: 2012 - Medical/Surgical History Hx Asthma: No Hx Chronic Respiratory Disease: No Hx Diabetes: No Hx Cardiac Disease: No Hx Renal Disease: No Hx Cirrhosis: No Hx Alcoholism: No Hx HIV/AIDS: No Hx Splenectomy or Spleen Trauma: No Other PMH: PMH- epilepsy, HTN, expressive aphasia, developmental delay, sepsis, . PSH- appy - Social History Smoking Status: Never smoked - Physical Exam Exam: General Appearance: Slightly obese slightly unconditioned Eyes: Pupils equal and round no pallor or injection, icteric ENT, Mouth: Mucous membranes moist Respiratory: There are no retractions, lungs are clear to auscultation Cardiovascular: Regular rate and rhythm Gastrointestinal: Minimal epigastric tenderness to palpation Neurological: Developmental delay, 5/5 strength noted all 4 extremities Skin: Jaundiced Musculoskeletal: Neck is supple nontender Extremities: symmetrical, full range of motion Constitutional: Initial Vital Signs Temperature (C) 36.7 C 08/10/18 11:46 Heart Rate 84 08/10/18 11:46 Respiratory Rate 16 08/10/18 11:46 Blood Pressure 129/82 H 08/10/18 11:46 O2 Sat (%) 95 08/10/18 11:46 O2 Delivery Mode Room Air Allergies/Adverse Reactions: No Known Allergies Allergy (Unverified 01/13/17 20:06) Home Medications: Medication Instructions Recorded Divalproex ER [Depakote ER 500 MG 1,500 mg PO BID@0730,1930 04/06/12 (*)] Phenytoin Sodium Extended 200 mg PO BID 04/06/12 [Dilantin (*)] levETIRAcetam [Keppra 500 mg (*)] 750 mg PO BID 05/20/15 Ibuprofen [Motrin (*)] 200 - 400 mg PO Q6 PRN 07/30/17 Loratadine [Claritin 10 mg] 10 mg PO DAILY PRN 07/30/17 Multivitamins [Multivitamin (*)] 1 each PO DAILY@0730 07/30/17 Acetaminophen [Tylenol 325mg (*)] 650 mg PO Q4HRS PRN tab 08/30/17 Cholecalciferol Vit D3 [Vitamin D3 50,000 unit PO TH 08/10/18 (*)] Citalopram [CeleXA 20 MG] 20 mg PO DAILY 08/10/18 Diazepam [DIASTAT ACUDIAL] 20 mg RC DAILY PRN 08/10/18 Lactulose 30 ml PO BID 08/10/18 Lisinopril 30 mg PO DAILY 08/10/18 risperiDONE [Risperdal 0.5mg (*)] 0.5 mg PO HS 08/10/18 Medical Decision Making - Diagnostics Imaging Results: Right upper quadrant ultrasound: Negative for cholecystitis. ED Course/Re-evaluation: Database: CBC: Within normal limits Basic metabolic panel: Normal Bilirubin: Elevated at 10, conjugated component 9.5 Liver function test: Mild transaminitis ED course: Patient presents to the ED with worsening jaundice. Etiology at this point time is uncertain. The patient has no evidence of cholecystitis or cholangitis clinically. The patient will be admitted to the hospitalist service for further evaluation and management. Differential Diagnosis: Differential diagnosis considered includes hepatitis, cholecystitis, cholangitis , medication side effect - Data Points Medications Given: Gabapentin (Neurontin) 600 mg PO TID SULMA Stop: 02/06/19 21:59 Last Admin: 08/11/18 07:30 Dose: 600 mg Sodium Chloride (Ns) 1,000 mls @ 75 mls/hr IV CONT SULMA Stop: 08/12/18 01:49 Last Admin: 08/11/18 05:05 Dose: 1,000 mls Levetiracetam (Keppra) 1,000 mg PO BID SULMA Stop: 02/06/19 12:32 Last Admin: 08/11/18 07:30 Dose: 1,000 mg Risperidone (Risperdal) 0.5 mg PO HS SULMA Stop: 02/06/19 20:59 Last Admin: 08/10/18 21:40 Dose: 0.5 mg Departure - Departure Disposition: [facility] In[facility] Acute Clinical Impression: Liver failure, acute, Jaundice, Cognitive developmental delay Condition: Fair
--- NOTE | 2018-08-11 10:43 | ASMTCMCOM ---
CM Note CM Note Notes: Pts case discussed w/ CHEY Dodd. Pt is a 63 y/o man admitted for jaundice. Pt lives at [facility]. Pt is independent with his ADLs and observed in the room moving in the room without any trouble. No therapies ordered at this time. Updates sent to [facility]. CM to follow. Plan: [facility] Date Signed: 08/11/2018 10:42 AM Electronically Signed By:CAROL Rowe
[2018-08-11] MEDS ORDERED: LORazepam 2 MG/ML INJ IVP PRN (11:27)
--- NOTE | 2018-08-11 15:00 | HOSPPROG ---
Hospitalist Progress Note Assessment/Plan: 63-year-old male with past medical history of developmental delay and epilepsy referred from Neurology for concerns for jaundice Liver failure- patient had a bilirubin of 11 on admission with an elevated INR and PT suggestive of diminished synthetic function and his liver. Etiology thought to be secondary to his Depakote and Dilantin. Ultrasound obtained showing no obstruction or any other abnormality. Case discussed with Neurology recommends discontinuing Dilantin and Depakote. Today bilirubin and transaminases trending down. -continue to monitor LFTs -check acute hepatitis panel -Tylenol level negative epilepsy- Dilantin and Depakote stopped thought to be secondary to hepatic toxicity. Neurology recommended starting gabapentin 600 mg three times daily and increasing Keppra to 1 [address] daily in place of Dilantin and Depakote. -gabapentin 600 three times daily -Keppra 1 g twice daily -Ativan 1-2 mg IV p.r.n. Seizure Developmental Delay- on Risperdal at night 0.5 mg Prophylaxis- the SCDs, no heparin Fluids- intravenous saline Electrolytes-within normal limits Nutrition- regular diet Cor-full Dispo-inpatient for liver failure and hyperbilirubinemia Subjective: No complaints feels fine. Objective: Vital Signs Temp Pulse Resp BP Pulse Ox 36.5 C 84 16 138/92 H 98 08/11/18 11:21 08/11/18 11:21 08/11/18 11:21 08/11/18 11:21 08/11/18 11:21 Laboratory Results 08/11/18 04:53 08/11/18 04:53 08/10/18 08/11/18 08/12/18 05:59 05:59 05:59 Intake Total 890 Balance 890 PT 23.9 SEC (12.0-15.0) H 08/11/18 04:53 INR 2.27 (0.83-1.16) H 08/11/18 04:53 - Physical Exam Constitutional: no apparent distress, appears nourished, not in pain Eyes: PERRL, EOMI, scleral injection Ears, Nose, Mouth, Throat: moist mucous membranes, hearing normal, ears appear normal, no oral mucosal ulcers Cardiovascular: regular rate and rhythym, no murmur, rub, or gallop Respiratory: no respiratory distress, no rales or rhonchi, clear to auscultation Gastrointestinal: normoactive bowel sounds, soft, non-tender abdomen, no palpable masses Genitourinary: no bladder fullness, no bladder tenderness, no renal bruits Skin: warm, no induration, other (Obvious jaundice) Musculoskeletal: full muscle strength, no muscle tenderness, normal joint ROM Neurologic: AAOx3, sensation intact bilaterally Psychiatric: interacting appropriately, not anxious, not encephalopathic, thought process linear Lymph, Heme, Immunologic: no cervical LAD, no supraclavicular LAD ICD10 Worksheet Patient Problems: Problems Problem Status Onset Cognitive developmental delay Acute Jaundice Acute Liver failure, acute Acute Closed fracture of upper end of humerus Active Abrasion Acute Altered mental status Acute Closed fracture of medial condyle of distal end of right femur Acute Frequent falls Acute Head injury Acute Multiple abrasions Acute Multiple contusions Acute Seizure Acute Seizure disorder Acute Sepsis Acute
[2018-08-11 15:44] LABS: HEPATITIS B SURFACE ANTIGEN NEGATIVE (NEGATIVE)
[2018-08-11 15:50] LABS: HEPATITIS A ANTIBODY IGM (BCH) NEGATIVE (NEGATIVE); HEPATITIS B CORE AB IGM NEGATIVE (NEGATIVE)
[2018-08-11 16:02] LABS: HEPATITIS C ANTIBODY TOTAL NEGATIVE (NEGATIVE)
--- NOTE | 2018-08-11 17:43 | PDMN ---
Medical Necessity Medical necessity: Pt meets IP criteria per MD & MCG [id number]; est los >2 mn for liver failure w/hyperbilirubinemia, elevated PT/INR & worsening jaundice thought to be secondary to Depakote & Dilantin; requiring further workup/ monitoring, Neuro consult & med management; hx developmental delay, epilepsy; per progress note & order 08/10/18
[2018-08-11] MEDS: risperiDONE 0.5 MG TAB PO SCH (21:50)
[2018-08-12 06:29] LABS: PLATELET COUNT 272 10^3/uL (150-400)
[2018-08-12] MEDS: GABAPENTIN 300 MG CAP PO SCH ×3 (08:50→21:43)
[2018-08-12] MEDS: levETIRAcetam 500 MG TAB PO SCH ×2 (08:51→21:43)
[2018-08-12 13:17] LABS: INR 2.11 (0.83-1.16); PROTIME(PATIENT) 22.6 SEC (12.0-15.0)
--- NOTE | 2018-08-12 18:05 | HOSPPROG ---
Hospitalist Progress Note Assessment/Plan: 63-year-old male with past medical history of developmental delay and epilepsy referred from Neurology for concerns for jaundice Liver failure- patient had a bilirubin of 11 on admission with an elevated INR and PT suggestive of diminished synthetic function and his liver. Etiology thought to be secondary to his Depakote and Dilantin. Ultrasound obtained showing no obstruction or any other abnormality. Case discussed with Neurology recommends discontinuing Dilantin and Depakote. Today bilirubin up. PT prolonged. I discussed with GI who does still feel this represents drug toxicity but to follow daily INR/PT and if climbing discuss with [facility] for possible transfer. -GI to eval -continue to monitor LFTs -check acute hepatitis panel -Tylenol level negative epilepsy- Dilantin and Depakote stopped thought to be secondary to hepatic toxicity. Neurology recommended starting gabapentin 600 mg three times daily and increasing Keppra to 1 g twice daily in place of Dilantin and Depakote. -gabapentin 600 three times daily -Keppra 1 g twice daily -Ativan 1-2 mg IV p.r.n. Seizure Developmental Delay- on Risperdal at night 0.5 mg Prophylaxis- the SCDs, no heparin Fluids- intravenous saline Electrolytes-within normal limits Nutrition- regular diet Cor-full Dispo-inpatient for liver failure and hyperbilirubinemia Subjective: patient with no complaints. Objective: Vital Signs Temp Pulse Resp BP Pulse Ox 37.5 C 116 H 16 119/71 90 L 08/12/18 11:43 08/12/18 16:00 08/12/18 16:00 08/12/18 16:00 08/12/18 16:00 Laboratory Results 08/12/18 06:00 08/12/18 06:00 08/11/18 08/12/18 08/13/18 05:59 05:59 05:59 Intake Total 890 Balance 890 PT 22.6 SEC (12.0-15.0) H 08/12/18 12:30 INR 2.11 (0.83-1.16) H 08/12/18 12:30 - Physical Exam Constitutional: no apparent distress, appears nourished, not in pain Eyes: PERRL, anicteric sclera, EOMI Ears, Nose, Mouth, Throat: moist mucous membranes, hearing normal, ears appear normal, no oral mucosal ulcers Cardiovascular: regular rate and rhythym, no murmur, rub, or gallop Respiratory: no respiratory distress, no rales or rhonchi, clear to auscultation Gastrointestinal: normoactive bowel sounds, soft, non-tender abdomen, no palpable masses Genitourinary: no bladder fullness, no bladder tenderness, no renal bruits Skin: no rashes or abrasions, no fluctuance, no induration, other (jaundiced) Musculoskeletal: full muscle strength, no muscle tenderness, normal joint ROM Neurologic: AAOx3, sensation intact bilaterally Psychiatric: interacting appropriately, not anxious, not encephalopathic, thought process linear Lymph, Heme, Immunologic: no cervical LAD, no supraclavicular LAD ICD10 Worksheet Patient Problems: Problems Problem Status Onset Cognitive developmental delay Acute Jaundice Acute Liver failure, acute Acute Closed fracture of upper end of humerus Active Abrasion Acute Altered mental status Acute Closed fracture of medial condyle of distal end of right femur Acute Frequent falls Acute Head injury Acute Multiple abrasions Acute Multiple contusions Acute Seizure Acute Seizure disorder Acute Sepsis Acute
[2018-08-12] MEDS: risperiDONE 0.5 MG TAB PO SCH (21:43)
[2018-08-13 05:38] LABS: PLATELET COUNT 260 10^3/uL (150-400)
[2018-08-13 05:43] LABS: INR 2.01 (0.83-1.16); PROTIME(PATIENT) 21.8 SEC (12.0-15.0)
[2018-08-13] MEDS: levETIRAcetam 500 MG TAB PO SCH ×2 (08:49→21:40)
[2018-08-13] MEDS: GABAPENTIN 300 MG CAP PO SCH ×3 (08:49→21:40)
[2018-08-13] MEDS ORDERED: IOPAMIDOL (ISOVUE-300) 100 ML BTL ONE (11:29)
--- NOTE | 2018-08-13 11:38 | GCON ---
[f rep st] CONSULTATION DATE OF CONSULTATION: 08/13/2018 CHIEF COMPLAINT: Jaundice. HPI: I am asked to see this patient in consultation by Dr. [place] for chief complaint of jaundice. The patient is a 63-year-old, who has history of seizure disorders and developmental delay. The patient is a very poor historian. Much of the history is obtained from the chart. With his history of seizure disorder, he was placed on Dilantin and Depakote, and was noted to have increasing liver function tests and noted to be jaundiced, so was referred to the emergency room. The patient has no complaints at this point as far as no fatigue, abdominal pain, nausea, vomiting. The patient states he has never had a history of liver disease or family history for liver disease. He denies alcohol use. Liver tests have been improving since stopping Depakote and Dilantin. ALLERGIES: No known drug allergies. MEDICINES: At home include diazepam, Celexa, risperidone, multivitamins, lisinopril, lactulose, Keppra, Motrin, Dilantin, and Depakote. PAST MEDICAL HISTORY: Notable for seizure disorder and reports of developmental delay. FAMILY HISTORY: Per patient, no family history of liver disease. SOCIAL HISTORY: Patient denies alcohol use. REVIEW OF SYSTEMS: I performed a complete review of systems which was negative except for the pertinent positives, negatives noted above in the HPI. PHYSICAL EXAM: VITALS: He is afebrile at 36.8, BP 113/78, pulse 109. HEENT: Eyes: There is notable scleral icterus. No oral lesions. CARDIOVASCULAR: Regular rate and rhythm. CHEST: Clear to auscultation. ABDOMEN: Obese. Unable to detect liver or spleen. No obvious ascites. No rebound. NEUROLOGIC : No obvious asterixis. SKIN: No lesions. LABORATORY DATA: Acute hepatitis panel for A, B, and C is negative. CBC today shows a white count of 9, hemoglobin of 10, with hematocrit of 33.2, platelets of 290. Protime was elevated on admission at 314, with a PT of 23.9, INR 2.27 today. Protime is 21.8, with an INR 2.0, and PTT of 41.7. Laboratory data on admission, 08/11/2018, total bilirubin was 10.6, crested at 11.8, and is now 10.2 today. AST, ALT at the highest yesterday were 194 and 110, and today are 160 and 100. Albumin is 3.0. Tylenol level was less than 10. Ultrasound of the abdomen shows hepatomegaly with steatosis, but no biliary duct dilation, possible sludge in the gallbladder. ASSESSMENT: Jaundice with elevated liver function tests, suspect drug-induced liver injury with cholestatic prominent picture, and likely culprits would be Dilantin and/or Depakote. Since stopping these medicines, patient's LFTs are improving. He did have an elevated pro time concerning for decreased hepatic synthetic function, although this is now improving and suspect that he will continue to improve. As he continues to improve I do not think he needs transfer to transplant center and at this point no evidence of encephalopathy or signs of liver failure. It is also possible he may have underlying liver disease such as fatty liver and do recommend check markers for autoimmune hepatitis. PLAN: 1. Supportive care. 2. Continue to monitor LFTs. I suspect that these will continue to improve. 3. CT scan has been ordered. We will await results. 4. We will check autoimmune markers with MINDY, anti smooth muscle antibody, and antimitochondrial antibody and monitor. Thank you for the consult. /[id number]/MODL MTDD
[2018-08-13] MEDS: CITALOPRAM 20 MG TAB PO SCH (12:53)
--- NOTE | 2018-08-13 14:51 | ASMTCMCOM ---
CM Note CM Note Notes: Pt admitted to hospital for jaundice, he lives at [facility]. He has a hx of seizures and dev delay. Pt is independent in ADLs. DC Plan: [facility] Date Signed: 08/13/2018 02:51 PM Electronically Signed By:Zeina Taylor RN
[2018-08-13] MEDS ORDERED: GADOBUTROL 10 ML VIAL IVP ONE (15:23)
--- NOTE | 2018-08-13 20:23 | HOSPPROG ---
Hospitalist Progress Note Assessment/Plan: 1. Acute liver failure -bilirubin of 11 on admission with an elevated INR and PT -Etiology thought to be secondary to toxicity from Depakote and Dilantin -Ultrasound showed no obstruction or other abnormality -CT scan and GI consult ordered to evaluate other causes 2. epilepsy - Dilantin and Depakote stopped bc of concern caused hepatic toxicity -Neurology recommended starting gabapentin 600 mg three times daily and increasing Keppra to 1 g twice daily in place of Dilantin and Depakote. -Ativan 1-2 mg IV p.r.n. Seizure 3. Developmental Delay 4. Obesity 5. Anemia DVT prophylaxis- SCDs/ambulation, INR elevated FULL CODE (but ask CM to check with [facility] if decisional, MDPOA/guardian , adv directives) Dispo->2 mdnts for ongoing evaluation of jaundice Subjective: Denies pain/n/v/d/itching/SOB. Says doesn't have family, they all . Living at [facility] for about a yr. Objective: Vital Signs Temp Pulse Resp BP Pulse Ox 99.2 F 95 16 123/82 H 92 08/13/18 19:14 08/13/18 19:14 08/13/18 19:14 08/13/18 19:14 08/13/18 19:14 Laboratory Results 08/13/18 05:17 08/12/18 06:00 08/12/18 08/13/18 08/14/18 11:59 11:59 11:59 Intake Total 500 870 Balance 500 870 PT 21.8 SEC (12.0-15.0) H 08/13/18 05:17 INR 2.01 (0.83-1.16) H 08/13/18 05:17 - Time Spent With Patient Time Spent with Patient: greater than 35 minutes (total floor time) Time Spent with Patient: Greater than 35 minutes spent on this patients care, greater than 50% of time spent counseling, educating, and coordinating care regarding the above mentioned plan. - Physical Exam Constitutional: no apparent distress, not in pain, obese Eyes: EOMI, icteric sclera Ears, Nose, Mouth, Throat: moist mucous membranes, hearing normal Cardiovascular: regular rate and rhythym, No edema Respiratory: no respiratory distress, no rales or rhonchi, clear to auscultation Gastrointestinal: normoactive bowel sounds, soft, non-tender abdomen, No guarding, No rebound, No distension Skin: warm, other (jaundiced) Neurologic: other (non focal) Psychiatric: interacting appropriately, not anxious, not encephalopathic ICD10 Worksheet Patient Problems: Problems Problem Status Onset Cognitive developmental delay Acute Jaundice Acute Liver failure, acute Acute Closed fracture of upper end of humerus Active Abrasion Acute Altered mental status Acute Closed fracture of medial condyle of distal end of right femur Acute Frequent falls Acute Head injury Acute Multiple abrasions Acute Multiple contusions Acute Seizure Acute Seizure disorder Acute Sepsis Acute
[2018-08-13] MEDS: risperiDONE 0.5 MG TAB PO SCH (21:40)
[2018-08-14 06:15] LABS: INR 1.82 (0.83-1.16); PROTIME(PATIENT) 20.2 SEC (12.0-15.0)
[2018-08-14] MEDS: GABAPENTIN 300 MG CAP PO SCH ×3 (08:28→21:10)
[2018-08-14] MEDS: CITALOPRAM 20 MG TAB PO SCH (08:28)
[2018-08-14] MEDS: levETIRAcetam 500 MG TAB PO SCH ×2 (08:28→21:10)
--- NOTE | 2018-08-14 10:38 | SOAPPROG ---
SOAP Progress Note Assessment/Plan: Assessment: Jaundice initial concern for drug induced liver disease but CT/MRCP show biliary obstruction concerning for tumor. Coagulopathy improving Plan: Will discuss with Dr. Parham for possible ERCP tomorrow. NPO post MN Check PT/INR in AM 08/14/18 10:35 Subjective: CC Jaundice Pt denies abd pain Objective: Vital Signs Temp Pulse Resp BP Pulse Ox 36.6 C 105 H 16 110/69 93 08/14/18 08:00 08/14/18 08:00 08/14/18 08:00 08/14/18 08:00 08/14/18 08:00 Laboratory Results 08/13/18 05:17 08/14/18 05:21 08/13/18 08/14/18 08/15/18 05:59 05:59 05:59 Intake Total 500 870 Balance 500 870 PT 20.2 SEC (12.0-15.0) H 08/14/18 05:21 INR 1.82 (0.83-1.16) H 08/14/18 05:21 Physical Exam - Physical Exam General Appearance: alert EENT: scleral icterus (R), scleral icterus (L) Respiratory: normal breath sounds Cardiac/Chest: regular rate, rhythm Abdomen: non-tender, soft ICD10 Worksheet Patient Problems: Problems Problem Status Onset Cognitive developmental delay Acute Jaundice Acute Liver failure, acute Acute Closed fracture of upper end of humerus Active Abrasion Acute Altered mental status Acute Closed fracture of medial condyle of distal end of right femur Acute Frequent falls Acute Head injury Acute Multiple abrasions Acute Multiple contusions Acute Seizure Acute Seizure disorder Acute Sepsis Acute
--- NOTE | 2018-08-14 14:32 | ASMTCMCOM ---
CM Note CM Note Notes: Hospitalist asked if pt is able to sign his own surgical consent if he is in need of ERCP. Spoke with Anuj from [facility] who confirmed pt generally signs his own paperwork. D/C plan: [facility] Date Signed: 08/14/2018 02:32 PM Electronically Signed By:PUMA Johnson
[2018-08-14] MEDS: risperiDONE 0.5 MG TAB PO SCH (21:10)
--- NOTE | 2018-08-15 01:03 | HOSPPROG ---
Hospitalist Progress Note Assessment/Plan: 1. Acute liver failure-unclear etiology -LFTs not decreasing but INR improving -Etiology thought to be secondary to toxicity from Depakote and Dilantin -Ultrasound showed no obstruction or other abnormality -neg hepatitis labs -CT scan and MRI results revwd with him, obstruction -appreciate GI consult , revwd care plan with Dr Oron[place], plan ERCP tomorrow 2. epilepsy - Dilantin and Depakote stopped bc of concern caused hepatic toxicity -Neurology recommended starting gabapentin 600 mg three times daily and increasing Keppra to 1 [address] twice daily in place of Dilantin and Depakote. -Ativan 1-2 mg IV p.r.n. Seizure 3. Developmental Delay 4. Obesity 5. Anemia, new onset per review on [employer] -check iron, stools -may need colonoscopy also DVT prophylaxis- SCDs/ambulation, INR elevated FULL CODE (but ask CM to check with [facility] if decisional, MDPOA/guardian , adv directives) Dispo->2 mdnts for ongoing evaluation of jaundice Subjective: Denies itching, abd pain, SOB, n/v/d. Says eating, ambulating without difficulty. Objective: Vital Signs Temp Pulse Resp BP Pulse Ox 98.7 F 90 16 128/83 H 95 08/14/18 23:28 08/14/18 23:28 08/14/18 23:28 08/14/18 23:28 08/14/18 23:28 Laboratory Results 08/13/18 05:17 08/14/18 05:21 08/13/18 08/14/18 08/15/18 11:59 11:59 11:59 Intake Total 500 870 Balance 500 870 PT 20.2 SEC (12.0-15.0) H 08/14/18 05:21 INR 1.82 (0.83-1.16) H 08/14/18 05:21 - Time Spent With Patient Time Spent with Patient: greater than 35 minutes (total floor time) Time Spent with Patient: Greater than 35 minutes spent on this patients care, greater than 50% of time spent counseling, educating, and coordinating care regarding the above mentioned plan. - Physical Exam Constitutional: no apparent distress, not in pain, obese Eyes: EOMI, icteric sclera Ears, Nose, Mouth, Throat: moist mucous membranes, hearing normal Cardiovascular: regular rate and rhythym, No edema Respiratory: no respiratory distress, no rales or rhonchi, clear to auscultation Gastrointestinal: normoactive bowel sounds, soft, non-tender abdomen, No guarding, No rebound, No distension Skin: warm, other (jaundice) Psychiatric: interacting appropriately, not anxious, not encephalopathic ICD10 Worksheet Patient Problems: Problems Problem Status Onset Cognitive developmental delay Acute Jaundice Acute Liver failure, acute Acute Closed fracture of upper end of humerus Active Abrasion Acute Altered mental status Acute Closed fracture of medial condyle of distal end of right femur Acute Frequent falls Acute Head injury Acute Multiple abrasions Acute Multiple contusions Acute Seizure Acute Seizure disorder Acute Sepsis Acute
[2018-08-15 05:48] LABS: INR 1.63 (0.83-1.16); PLATELET COUNT 272 10^3/uL (150-400); PROTIME(PATIENT) 18.6 SEC (12.0-15.0)
[2018-08-15] MEDS: CITALOPRAM 20 MG TAB PO SCH (08:31)
[2018-08-15] MEDS: levETIRAcetam 500 MG TAB PO SCH ×2 (08:31→21:24)
[2018-08-15] MEDS: GABAPENTIN 300 MG CAP PO SCH ×3 (08:31→21:24)
--- NOTE | 2018-08-15 09:40 | HOSPPROG ---
Hospitalist Progress Note Assessment/Plan: 63 yo M w developmental delay admitted acute hepatitis, ductal stricture 1. Acute hepatitis-meds vs stricture vs other LFTs not decreasing but INR improving \ Etiology thought to be secondary to toxicity from Depakote and Dilantin Ultrasound showed no obstruction or other abnormality neg hepatitis labs, serologies pending CT scan and MRI results revwd with him, obstruction ercp today- needs brushings concerning for malignancy 2. epilepsy Dilantin and Depakote stopped bc of concern caused hepatic toxicity Neurology recommended starting gabapentin 600 mg three times daily and increasing Keppra to 1 g twice daily in place of Dilantin and Depakote. Ativan 1-2 mg IV p.r.n. Seizure 3. Developmental Delay 4. Obesity 5. Anemia, new onset per review on [employer] check iron, stools 6. hyperlipidemia: very elevated LDL not a candidate for statin given above DVT prophylaxis- SCDs/ambulation, INR elevated FULL CODE (but ask CM to check with [facility] if decisional, MDPOA/guardian , adv directives) Dispo->2 mdnts for ongoing evaluation of jaundice Subjective: case d/w dr almonte. LFT's about the same. cholesterol quite high Objective: Vital Signs Temp Pulse Resp BP Pulse Ox 37.3 C 89 16 110/87 H 96 08/15/18 08:00 08/15/18 08:00 08/15/18 08:00 08/15/18 08:00 08/15/18 08:00 Laboratory Results 08/15/18 04:44 08/15/18 04:44 08/14/18 08/15/18 08/16/18 05:59 05:59 05:59 Intake Total 870 Balance 870 PT 18.6 SEC (12.0-15.0) H 08/15/18 04:44 INR 1.63 (0.83-1.16) H 08/15/18 04:44 - Physical Exam Constitutional: no apparent distress, appears nourished Eyes: PERRL, icteric sclera Ears, Nose, Mouth, Throat: moist mucous membranes, hearing normal Cardiovascular: regular rate and rhythym, no murmur, rub, or gallop Respiratory: no respiratory distress, no rales or rhonchi Gastrointestinal: normoactive bowel sounds, No lima's sign Genitourinary: No manuel in urethra Skin: warm, normal color Musculoskeletal: full muscle strength Neurologic: AAOx3 Psychiatric: interacting appropriately ICD10 Worksheet Patient Problems: Problems Problem Status Onset Cognitive developmental delay Acute Jaundice Acute Liver failure, acute Acute Closed fracture of upper end of humerus Active Abrasion Acute Altered mental status Acute Closed fracture of medial condyle of distal end of right femur Acute Frequent falls Acute Head injury Acute Multiple abrasions Acute Multiple contusions Acute Seizure Acute Seizure disorder Acute Sepsis Acute
[2018-08-15] MEDS ORDERED: IOTHALAMATE MEG (CONRAY) 50 ML VIAL IV ONE (16:44)
[2018-08-15] MEDS ORDERED: LR 1,000 ML IV ONE (17:06)
[2018-08-15] MEDS ORDERED: PROPOFOL/EMULSION 500 MG/50 ML BOTTLE IV ONE (17:22)
[2018-08-15] MEDS ORDERED: REMIFENTANIL HCL 1 MG VIAL ONE (17:22)
[2018-08-15] MEDS ORDERED: fentaNYL 100 MCG/2 ML INJ ONE (17:22)
[2018-08-15] MEDS ORDERED: DEXAMETHASONE 4 MG/ML VIAL ONE (17:24)
[2018-08-15] MEDS ORDERED: ONDANSETRON 4 MG/2 ML VIAL ONE (17:24)
[2018-08-15] MEDS ORDERED: LIDOCAINE HCL 160 MG/4 ML LTA KIT TP ONE (17:25)
[2018-08-15] MEDS ORDERED: INDOMETHACIN 50 MG SUPP PR ONE ×2 (18:39→18:41)
[2018-08-15] MEDS ORDERED: MEPERIDINE 25 MG/0.5 ML AMP IVP PRN (19:38)
[2018-08-15] MEDS ORDERED: ONDANSETRON 4 MG/2 ML VIAL IVP PRN (19:38)
[2018-08-15] MEDS ORDERED: NALOXONE HCL 0.4 MG/ML INJ IVP PRN (19:38)
[2018-08-15] MEDS ORDERED: ALBUTEROL 3 ML DEYVIAL IH PRN (19:38)
[2018-08-15] MEDS ORDERED: DEXAMETHASONE 4 MG/ML VIAL IVP PRN (19:38)
[2018-08-15] MEDS ORDERED: PROMETHAZINE HCL 25 MG/ML INJ IVP PRN (19:38)
[2018-08-15] MEDS ORDERED: LR 500 ML IV PRN (19:38)
[2018-08-15] MEDS ORDERED: fentaNYL 100 MCG/2 ML INJ IVP PRN (19:38)
[2018-08-15] MEDS ORDERED: LABETALOL HCL 5 MG/ML 20 ML MDV IVP PRN (19:38)
[2018-08-15] MEDS ORDERED: PHENYLEPHRINE HCL 100 MCG/ML SYR IVP PRN (19:38)
[2018-08-15] MEDS ORDERED: HYDROCODONE/APAP 5/325 TAB PO PRN (19:38)
[2018-08-15] MEDS ORDERED: oxyCODONE IR 5 MG TAB PO PRN (19:38)
[2018-08-15] MEDS ORDERED: METOCLOPRAMIDE 10 MG/2 ML VIAL IVP PRN (19:38)
[2018-08-15] MEDS ORDERED: ACETAMINOPHEN 500 MG TAB PO PRN (19:38)
--- NOTE | 2018-08-15 19:41 | PDANEPAE ---
ANE History of Present Illness EGD/EUS/ERCP for new onset jaundice ANE Past Medical History - Cardiovascular History Hx Hypertension: Yes - Pulmonary History Hx Oxygen in Use at Home: No Hx Sleep Apnea: No Sleep Apnea Screening Result - Last Documented: Positive - Endocrine History Hx Diabetes: No - Neurological & Psychiatric Hx Hx Neurological and Psychiatric Disorders: Yes Neurological / Psychiatric History Comment: seizure D/O, deveopemental delay - Chronic Pain History Chronic Pain: No ANE Review of Systems Review of Systems: - Exercise capacity Exercise capacity: <4 METS ANE Patient History - Allergies Allergies/Adverse Reactions: No Known Allergies Allergy (Unverified 01/13/17 20:06) - Home Medications Home Medications: Divalproex ER [Depakote ER 500 MG (*)] 1,500 mg PO BID@0730,1930 04/06/12 [Last Taken 07/30/17 07:30] Phenytoin Sodium Extended [Dilantin (*)] 200 mg PO BID 04/06/12 [Last Taken 06/17] levETIRAcetam [Keppra 500 mg (*)] 750 mg PO BID 05/20/15 [Last Taken 07/30/17 07 :30] Ibuprofen [Motrin (*)] 200 - 400 mg PO Q6 PRN 07/30/17 [Last Taken Unknown] Loratadine [Claritin 10 mg] 10 mg PO DAILY PRN 07/30/17 [Last Taken Unknown] Multivitamins [Multivitamin (*)] 1 each PO DAILY@0730 07/30/17 [Last Taken Unknown] Cholecalciferol Vit D3 [Vitamin D3 (*)] 50,000 unit PO TH 08/10/18 [Last Taken Unknown] Citalopram [CeleXA 20 MG] 20 mg PO DAILY 08/10/18 [Last Taken Unknown] Diazepam [DIASTAT ACUDIAL] 20 mg RC DAILY PRN 08/10/18 [Last Taken Unknown] Lactulose 30 ml PO BID 08/10/18 [Last Taken Unknown] Lisinopril 30 mg PO DAILY 08/10/18 [Last Taken Unknown] risperiDONE [Risperdal 0.5mg (*)] 0.5 mg PO HS 08/10/18 [Last Taken Unknown] - NPO status NPO Status: no food or drink >8 hours NPO Since - Liquids (Date): 08/15/18 NPO Since - Liquids (Time): 00:00 NPO Since - Solids (Date): 08/15/18 NPO Since - Solids (Time): 00:00 - Anes Hx Anes Hx: no prior problems - Smoking Hx Smoking Status: Never smoked - Alcohol Use Alcohol Use: None - Family Anes Hx Family Anes Hx: none ANE Labs/Vital Signs - Labs Result Diagrams: 08/15/18 04:44 08/15/18 04:44 - Vital Signs Blood Pressure: 115/84 Heart Rate: 92 Respiratory Rate: 18 O2 Sat (%): 95 Height: 172.72 cm Weight: 90.718 kg ANE Physical Exam - Airway Neck exam: decreased ROM Mallampati Score: Class 2 Mouth exam: poor dentition - Pulmonary Pulmonary: no respiratory distress - Cardiovascular Cardiovascular: regular rate and rhythym - ASA Status ASA Status: III ANE Anesthesia Plan Anesthesia Plan: general endotracheal anesthesia Urgent/Emergent Case: Alexa nguyen completed preop but documented later for safe timely pt care
--- NOTE | 2018-08-15 19:42 | POSTANESTH ---
Post Anesthetic Evaluation Cardiovascular Status: Similar to Pre-Op Cond, Tx Hyper/Hypo-tension Respiratory Status: Normal, Stable, Tx Decrease in SpO2 Level of Consciousness/Mental Status: Can Participate in Eval, Mildly Sleepy, Arousable Pain Control: Adequate, Prn Tx Ordered Nausea/Vomiting Control: Adequate, Prn Tx Ordered Complications Possibly Related to Anesthesia: None Noted
[2018-08-15] MEDS: risperiDONE 0.5 MG TAB PO SCH (21:24)
--- NOTE | 2018-08-15 21:47 | GIREPORT ---
[facility] Surgical Services - Endoscopy Department Patient Name: Carl Means Procedure Date: 08/15/2018 5:29 PM Patient Type: Inpatient Attending MD/ ER Physician: Madhav Gutiérrez MD Procedure: Upper EUS Indications: Abnormal abdominal/pelvic CT scan, Elevated liver enzymes Patient Profile: 63 year male presents for evaluation of abnormal imaging, bilairy obstruction, jaundice, and increased LFTs. Providers: Madhav Gutiérrez MD Medicines: General Anesthesia Complications: No immediate complications. Estimated blood loss: Minimal. Description of Procedure: After obtaining informed consent, the endoscope was passed under direct vision. Throughout the procedure, the patient's blood pressure, pulse, and oxygen saturations were monitored continuously. The Endosonoscope was introduced through the mouth, and advanced to the second part of duoden um. The Endoscope was introduced through the mouth, and advanced to the sec ond part of duodenum. The upper EUS was accomplished without difficulty. Th e esophagus, stomach, and duodenum were visualized endosonographically. T he patient tolerated the procedure well. Findings: Endoscopic Finding : The examined esophagus was normal. A hiatal hernia was present. Patchy mildly erythematous mucosa was found in the gastric body and in the gastric antrum. Biopsies were taken with a cold forceps for histology. The examined duodenum was normal. Endosonographic Finding : Pancreatic parenchymal abnormalities were noted in the entire pancreas. These consisted of hyperechoic foci. There was no sign of significant endosonographic abnormality in the visualized portion of the liver. No masses were identified. Moderate hyperechoic material consistent with sludge was visualized endosonographically in the gallbladder. There was a suggestion of a stricture in the common hepatic duct. Two enlarged lymph nodes were visualized in the sabrina hepatis region. T he largest measured 16 mm by 12 mm in maximal cross-sectional diameter. Th e nodes were round, isoechoic and had well defined margins. Fine needle aspiration for cytology was performed. Color Doppler imaging was utiliz ed prior to needle puncture to confirm a lack of significant vascular structures within the needle path. Four passes (2 passes into each node ) were made with the 25 gauge needle using a transduodenal approach. A st ylet was used. A product consultant was present and performed a preliminary cytologi c examination. Final cytology results are pending. Estimated Blood Loss: Estimated blood loss was minimal. Post Op Diagnosis: - Normal esophagus. - Hiatal hernia. - Erythematous mucosa in the gastric body and antrum. Biopsied. - Normal examined duodenum. - Pancreatic parenchymal abnormalities consisting of hyperechoic foci w ere noted in the entire pancreas. - There was no evidence of significant pathology in the visualized port ion of the liver. - Hyperechoic material consistent with sludge was visualized endosonographically in the gallbladder. - There was a suggestion of a stricture in the common hepatic duct. - Two enlarged lymph nodes were visualized in the sabrina hepatis region. Fine needle aspiration performed. - Etiology? 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 Proceed with ERCP. Recommendation: - Perform an ERCP today. - Await cytology results and await path results. - Thank you for allowing me to participate in the care of your patient. Attending Participation: I personally performed the entire procedure. Madhav Gutiérrez MD Madhav Gutiérrez MD 08/15/2018 9:46:54 PM This report has been signed electronicallyMadhav Gutiérrez MD Number of Addenda: 0 Note Initiated On: 08/15/2018 5:29 PM [email or web address]
--- NOTE | 2018-08-15 22:06 | GIREPORT ---
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 He has had a CT scan/MRI, and EUS which reveal a stricture in the CHD area. He presents for further evalution, biliary decompression, and tissue sampling. Providers: Madhav Gutiérrez MD Medicines: General Anesthesia, Indomethacin 100 mg OR Complications: No immediate complications. Estimated blood loss: Minimal. Description of Procedure: After obtaining informed consent, the scope was passed under direct vis ion. Throughout the procedure, the patient's blood pressure, pulse, and oxyg en saturations were monitored continuously. The Duodenalscope was introduc ed through the mouth, and advanced to the duodenum and used to inject cont rast into the bile duct. The ERCP was accomplished without difficulty. The patient tolerated the procedure well. Findings: The bull ladle tender film was normal. The esophagus was successfully intubated und er direct vision. The scope was advanced to a normal major papilla in the descending duodenum without detailed examination of the pharynx, larynx and associated structures, and upper GI tract. The upper GI tract was gross ly normal. A wire was passed into the biliary tree. The short-nosed tracti on sphincterotome was passed over the guidewire and the bile duct was then deeply cannulated. Contrast was injected. I personally interpreted the bile duct images. Ductal flow of contrast was adequate. Image quality was adequate. Contrast extended to the entire biliary tree. The common hepa tic duct contained a single localized stenosis 20 mm in length. This area w as biopsied with a pediatric forceps for histology. Cells for cytology wer e obtained by brushing in the upper third of the main bile duct. The bili kaylene tree was swept with a 12 mm balloon starting at the bifurcation. Sludge was swept from the duct. Two 0.035 inch wires were eventually placed into t he right and left biliary tree. 7 Fr by 9 cm temporary stents were placed into the left tree. Attempts were made to place another 7 Ft stent into the right tree, but the CBD was too tight. A 5cm 9cm stent was placed into the ri ght bilairy tree. Bile flowed through the stents. The stents were in good position. Estimated Blood Loss: Estimated blood loss was minimal. Post Op Diagnosis: - A single localized biliary stricture was found in the common hepatic duct. The stricture was malignant appearing. - Biopsy was performed in the upper third of the main bile duct. - Cells for cytology obtained in the upper third of the main bile duct. - The biliary tree was swept and sludge was found. - Two temporary stents were placed into the common bile duct. Recommendation: - [facility] to [facility]. - NPO till tomorrow - Await cytology results and await path results. - Repeat ERCP in 6 weeks. - Thank you for allowing me to participate in the care of your patient. Attending Participation: I personally performed the entire procedure. Madhav Gutiérrez MD Madhav Gutiérrez MD 08/15/2018 10:06:05 PM This report has been signed electronicallyMadhav Gutiérrez MD Number of Addenda: 0 Note Initiated On: 08/15/2018 5:28 PM [email or web address]
[2018-08-16] MEDS: GABAPENTIN 300 MG CAP PO SCH ×3 (08:31→20:41)
[2018-08-16] MEDS: levETIRAcetam 500 MG TAB PO SCH ×2 (08:31→20:41)
[2018-08-16] MEDS: CITALOPRAM 20 MG TAB PO SCH (08:31)
--- NOTE | 2018-08-16 10:56 | SOAPPROG ---
SOAP Progress Note Assessment/Plan: Assessment: CBD stricture concerning for malignancy biopsied and stents placed. Doing well Jaundice plan OK to advance diet OK to discharge Await path Repeat ERCP in 6 weeks Will sign ff 08/16/18 10:54 Subjective: CC jaundice pt denies abd pain or melena post ERCP Objective: Vital Signs Temp Pulse Resp BP Pulse Ox 36.7 C 82 18 126/91 H 92 08/16/18 07:58 08/16/18 07:58 08/16/18 07:58 08/16/18 07:58 08/16/18 07:58 Laboratory Results 08/15/18 04:44 08/15/18 04:44 08/15/18 08/16/18 08/17/18 05:59 05:59 05:59 Intake Total 1000 Output Total 275 Balance 725 PT 18.6 SEC (12.0-15.0) H 08/15/18 04:44 INR 1.63 (0.83-1.16) H 08/15/18 04:44 Physical Exam - Physical Exam EENT: scleral icterus (R), scleral icterus (L) Respiratory: lungs clear Cardiac/Chest: regular rate, rhythm Abdomen: normal bowel sounds, non-tender ICD10 Worksheet Patient Problems: Problems Problem Status Onset Cognitive developmental delay Acute Jaundice Acute Liver failure, acute Acute Closed fracture of upper end of humerus Active Abrasion Acute Altered mental status Acute Closed fracture of medial condyle of distal end of right femur Acute Frequent falls Acute Head injury Acute Multiple abrasions Acute Multiple contusions Acute Seizure Acute Seizure disorder Acute Sepsis Acute
--- NOTE | 2018-08-16 12:50 | HOSPPROG ---
Hospitalist Progress Note Assessment/Plan: 63 yo M w developmental delay admitted acute hepatitis, ductal stricture 1. Acute hepatitis-meds vs stricture vs other LFTs not decreasing but INR improving Etiology thought to be secondary to toxicity from Depakote and Dilantin Ultrasound showed no obstruction or other abnormality neg hepatitis labs, serologies pending CT scan and MRI results revwd with him, obstruction ercp today-concerning for malignancy path pending 2. epilepsy Dilantin and Depakote stopped bc of concern caused hepatic toxicity Neurology recommended starting gabapentin 600 mg three times daily and increasing Keppra to 1 g twice daily in place of Dilantin and Depakote. Ativan 1-2 mg IV p.r.n. Seizure 3. Developmental Delay 4. Obesity 5. Anemia, new onset per review on [employer] check iron, stools 6. hyperlipidemia: very elevated LDL not a candidate for statin given above repeat AM 08/17 DVT prophylaxis- SCDs/ambulation, INR elevated FULL CODE (but ask CM to check with [facility] [place] if decisional, MDPOA/guardian , adv directives) Dispo->2 mdnts for ongoing evaluation of jaundice Subjective: case d/w dr almonte. malignant appearing stricture Objective: Vital Signs Temp Pulse Resp BP Pulse Ox 36.9 C 96 18 116/88 H 97 08/16/18 11:37 08/16/18 11:37 08/16/18 11:37 08/16/18 11:37 08/16/18 11:37 Laboratory Results 08/15/18 04:44 08/15/18 04:44 08/15/18 08/16/18 08/17/18 05:59 05:59 05:59 Intake Total 1000 Output Total 275 Balance 725 PT 18.6 SEC (12.0-15.0) H 08/15/18 04:44 INR 1.63 (0.83-1.16) H 08/15/18 04:44 - Physical Exam Constitutional: no apparent distress, appears nourished Eyes: PERRL, icteric sclera Ears, Nose, Mouth, Throat: moist mucous membranes, hearing normal Cardiovascular: regular rate and rhythym, no murmur, rub, or gallop Respiratory: no respiratory distress, no rales or rhonchi Gastrointestinal: normoactive bowel sounds, soft, non-tender abdomen Genitourinary: No manuel in urethra Skin: warm, normal color Musculoskeletal: full muscle strength ICD10 Worksheet Patient Problems: Problems Problem Status Onset Cognitive developmental delay Acute Jaundice Acute Liver failure, acute Acute Closed fracture of upper end of humerus Active Abrasion Acute Altered mental status Acute Closed fracture of medial condyle of distal end of right femur Acute Frequent falls Acute Head injury Acute Multiple abrasions Acute Multiple contusions Acute Seizure Acute Seizure disorder Acute Sepsis Acute
--- NOTE | 2018-08-16 17:03 | ASMTCMCOM ---
CM Note CM Note Notes: Hospitalist requested next of kin contact for pt as pt likely has foreboding diagnosis. CM reached out to [facility] and confirmed that Martina (in chart) is pt's primary contact "friend", and pt also has a renal case manager named Raulito Roper o: [phone], cell: [phone]. Pt is likely to discharge back to [facility] tomorrow. D/C Plan: BM Date Signed: 08/16/2018 05:02 PM Electronically Signed By:Nara Martinez
[2018-08-16] MEDS: risperiDONE 0.5 MG TAB PO SCH (20:42)
[2018-08-17] MEDS: GABAPENTIN 300 MG CAP PO SCH ×2 (08:56→15:22)
[2018-08-17] MEDS: levETIRAcetam 500 MG TAB PO SCH (08:56)
[2018-08-17] MEDS: CITALOPRAM 20 MG TAB PO SCH (08:56)
--- NOTE | 2018-08-17 13:51 | HOSPPROG ---
Hospitalist Progress Note Assessment/Plan: 63 yo M w developmental delay admitted acute hepatitis, ductal stricture 1. Acute hepatitis-meds vs stricture vs other LFTs not decreasing but INR improving Etiology thought to be secondary to toxicity from Depakote and Dilantin Ultrasound showed no obstruction or other abnormality neg hepatitis labs, serologies pending CT scan and MRI results revwd with him, obstruction ercp today-concerning for malignancy path pending 2. epilepsy Dilantin and Depakote stopped bc of concern caused hepatic toxicity Neurology recommended starting gabapentin 600 mg three times daily and increasing Keppra to 1 g twice daily in place of Dilantin and Depakote. Ativan 1-2 mg IV p.r.n. Seizure 3. Developmental Delay 4. Obesity 5. Anemia, new onset per review on [employer] check iron, stools 6. hyperlipidemia: very elevated LDL not a candidate for statin given above repeat AM 08/17 LDL > 300 will not start stain now given abnormal lft's and guarded overall prognosis plan of care: patient has no family. I called his one friend (natalia) listed- she is undergoing lung CA treatment and hasnt seen in him in several years. Mr. Means indicated he would want treatment for cancer if he had it, but it was a rather cursory discussion. I spoke w onb call GI MD and recommended onc referral if path +,. which it will likely be to [facility] today > 30 minutes on dc Subjective: case d/w dr almonte Objective: Vital Signs Temp Pulse Resp BP Pulse Ox 36.9 C 89 16 104/66 92 08/17/18 11:32 08/17/18 11:32 08/17/18 11:32 08/17/18 11:32 08/17/18 11:32 Laboratory Results 08/15/18 04:44 08/17/18 05:39 08/16/18 08/17/18 08/18/18 05:59 05:59 05:59 Intake Total 1000 Output Total 275 Balance 725 PT 18.6 SEC (12.0-15.0) H 08/15/18 04:44 INR 1.63 (0.83-1.16) H 08/15/18 04:44 - Physical Exam Constitutional: no apparent distress, appears nourished Eyes: PERRL, No icteric sclera Ears, Nose, Mouth, Throat: moist mucous membranes, hearing normal Cardiovascular: regular rate and rhythym, no murmur, rub, or gallop Respiratory: no respiratory distress, no rales or rhonchi Gastrointestinal: normoactive bowel sounds, soft, non-tender abdomen Genitourinary: no bladder fullness, No manuel in urethra Skin: warm, normal color Musculoskeletal: full muscle strength Neurologic: AAOx3 ICD10 Worksheet Patient Problems: Problems Problem Status Onset Closed fracture of upper end of humerus Active Frequent falls Acute Head injury Acute Abrasion Acute Closed fracture of medial condyle of distal end of right femur Acute Seizure Acute Multiple contusions Acute Multiple abrasions Acute Altered mental status Acute Sepsis Acute Seizure disorder Acute Cognitive developmental delay Acute Liver failure, acute Acute Jaundice Acute
--- NOTE | 2018-08-17 13:57 | PDIAF ---
- Diagnosis Diagnosis: jaundice, biliary stricture concerning for malignancy Code Status: Full Code - Medication Management Discharge Medications: electronically signed and located in the Home Medication List. - Orders Services needed: Registered Nurse, Certified Manager Play, Master Time Study Observer , Physical Therapy, Occupational Therapy, Speech Language Pathologist Isolation Type: None - Follow Up Care Current Providers and Referrals: Patient,NotPresent [Primary Care Provider] -
--- NOTE | 2018-08-17 14:22 | ASMTLACE ---
LACE Length of stay for Answers: 4-6 days current admission Acuity / Level of Answers: Yes Care: Did the patient have an inpatient admission? Comorbidities - select Answers: Other Notes: Hx of seizure all that apply disorder; Developmental delay; HTN # of Emergency department Answers: 1-2 visits in the last 6 months Score: 9 Date Signed: 08/17/2018 02:21 PM Electronically Signed By:CAROL Rowe
--- NOTE | 2018-08-17 14:24 | ASMTDCNOTE ---
Case Management Discharge Discharge Order Complete? Answers: Yes Patient to Obtain Answers: Other Notes: [facility] Medications Transportation Arranged Answers: Other Notes: Negar w/c transport Transport will Pick (Date 08/17/2018 05:30 PM & Time) EMTALA Complete Answers: No Case Management Transport Answers: No Form Complete Faxed Final Orders Answers: Yes Agency/Facility Transfer Answers: Yes Report Printed & Faxed to Receiving Agency Family Notified Answers: No Discharge Comments Notes: Pts case discussed w/ Dr. Harper. Pt is being d/c'd today back to [facility]. DC orders sent. CHEY Powell will call to give report. CM available for changes. Plan: [facility] Date Signed: 08/17/2018 02:23 PM Electronically Signed By:CAROL Rowe
--- NOTE | 2018-08-17 14:36 | ASDISCHSUM ---
Discharge Information Plan Status:SNF Medically Cleared to Leave:08/17/2018 Discharge Date:08/17/2018 CM D/C Disposition: ADT D/C Disposition: Projected Discharge Date:08/17/2018 11:00 AM Transportation at D/C: Discharge Delay Reason: Follow-Up Date:08/17/2018 11:00 AM Discharge Slot: Final Diagnosis: Placement Information Referral Type:*Intermediate/SNF Referral ID:[id number] Provider Name:Sara Diaz/MICHEEL Bass Address 1:[address] Address 2: Fax Number: [facility]:[place] Selection Factors: State:[place] Patient Contact Information Contact Name:SUSIE Relationship:Friend [address] Work Phone: [facility]:[place] Alternate Phone: State/Zip Code:[place] [address] Email: Financial Information Financial Class:Medicare Primary Plan Desc:MEDICARE OUTPATIENT Primary Plan Number:[id number] Secondary Plan Desc:MED[place] Secondary Plan Number:[id number] Assessment Information LACE LACE Length of stay for Answers: 4-6 days current admission Acuity / Level of Answers: Yes Care: Did the patient have an inpatient admission? Comorbidities - select Answers: Other Notes: Hx of seizure all that apply disorder; Developmental delay; HTN # of Emergency department Answers: 1-2 visits in the last 6 months Score: 9 Date Signed: 08/17/2018 02:21 PM Electronically Signed By:CAROL Rowe [facility] CM Progress Note CM Note CM Note Notes: Pts case discussed w/ CHEY Dodd. Pt is a 63 y/o man admitted for jaundice. Pt lives at [facility]. Pt is independent with his ADLs and observed in the room moving in the room without any trouble. No therapies ordered at this time. Updates sent to [facility]. CM to follow. Plan: [facility] Date Signed: 08/11/2018 10:42 AM Electronically Signed By:CAROL Rowe [facility] CM Progress Note CM Note CM Note Notes: Pt admitted to hospital for jaundice, he lives at [facility]. He has a hx of seizures and dev delay. Pt is independent in ADLs. DC Plan: [facility] Date Signed: 08/13/2018 02:51 PM Electronically Signed By:Zeina Taylor RN [facility] CM Progress Note CM Note CM Note Notes: Hospitalist asked if pt is able to sign his own surgical consent if he is in need of ERCP. Spoke with Anuj from [facility] who confirmed pt generally signs his own paperwork. D/C plan: [facility] Date Signed: 08/14/2018 02:32 PM Electronically Signed By:PUMA Johnson [facility] CM Progress Note CM Note CM Note Notes: Hospitalist requested next of kin contact for pt as pt likely has foreboding diagnosis. CM reached out to [facility] and confirmed that Martina (in chart) is pt's primary contact "friend", and pt also has a pillowcase turner named Raulito Roper o: [phone], cell: [phone]. Pt is likely to discharge back to [facility] tomorrow. D/C Plan: [facility] Date Signed: 08/16/2018 05:02 PM Electronically Signed By:Nara Martinez Case Management Discharge Plan Note Case Management Discharge Discharge Order Complete? Answers: Yes Patient to Obtain Answers: Other Notes: [facility] Medications Transportation Arranged Answers: Other Notes: [facility]ar w/c transport Transport will Pick (Date 08/17/2018 05:30 PM & Time) [place] Complete Answers: No Case Management Transport Answers: No Form Complete Faxed Final Orders Answers: Yes Agency/Facility Transfer Answers: Yes Report Printed & Faxed to Receiving Agency Family Notified Answers: No Discharge Comments Notes: Pts case discussed w/ Dr. Harper. Pt is being d/c'd today back to [facility]. DC orders sent. CHEY Powell will call to give report. CM available for changes. Plan: [facility] Date Signed: 08/17/2018 02:23 PM Electronically Signed By:CAROL Rowe Intervention Information
[2018-08-17 16:47] VITALS: BP 116/78
--- NOTE | 2018-08-17 18:27 | GDS ---
[f rep st] DISCHARGE SUMMARY DISCHARGE DIAGNOSES: 1. Abnormal liver function tests. 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 2. Markedly elevated cholesterol with a direct LDL of over 300. 3. Seizure disorder. 4. Developmental delay. HOSPITAL COURSE: Please see admission history and physical by Dr. Elijah Guzman. The patient had an abnormal liver test and jaundice. He had abdominal imaging showing dilated ducts without hepatic mas s. He underwent ERCP, which had the aforementioned results. There was biliary obstruction seen on C T. I did not have evidence of cholangitis. His transaminases were stable in the 100s. He had stent placement with improvement in his bilirubin, although he is still jaundiced at 6.4. Today, it was a s high as 12. He had a lipid panel checked, which showed a total cholesterol of 600 and an LDL of 500, direct LDL o f 300. The patient, at this point in time, is awaiting pathology report. His trajectory of care is somewhat complicated by his developmental delay, in that he does not recall conversations from 1 day to the n ext and really cannot remember multiple conversations. At this point in time, the patient is dischar ge home. He has outpatient followup with GI for review of pathology and likely metal stent exchange . I have recommended Oncology referral for discussion of treatment. In a cursory discussion, he did say that he would consider treatment. It is not clear if he understood the risks and benefits. I t hink a more in-depth conversation once the information is back would be prudent for this patient. The patient has no family. I called an old friend, named Martina, who has been involved in his care i n the past, but they have not seen each in a number of years, and this person, Martina, is currently u ndergoing lung cancer therapy, so it is not clear how available that they would be, although they did suggest they would be available for support. DISCHARGE STATUS: Back to [facility] where he [facility]. /[id number]/MODL
--- NOTE | 2018-08-22 09:51 | PQFORM ---
PHYSICIAN QUERY FORM Needs Your Response This query form is being sent to you to assure this patient record is coded properly. Please respond to the question below: COMPUTATOR QUESTION: Dear Dr. Harper, On admission, Dr. Cohn and Dr. Norton both document liver failure with a bilirubin of 11 on admission with an elevated INR and PT suggestive of diminished function of the liver. Dr. [place] follows with this documentation of acute liver failure and you follow with documenting acute hepatitis. Dr. Barron states in her consult 'no evidence signs of liver failure'. Based on the clinical findings and your professional judgment, can any of the following diagnoses be added to the discharge summary?: Acute liver failure due to common hepatic duct stricture Acute hepatitis due to common hepatic duct stricture Other ___X___ No change from abnormal liver function test as stated. Thank you for clarifying, MYRIAM Leslie HIM Coding INSTRUCTIONS FOR RESPONSE: Answer question by clicking on the "Edit Document" button. Move cursor to area below the stars. When complete, hit "Save." Click on the "Sign" button, then click "Sign" again. Type in your PIN and hit "Enter." MTDD
== END 2018-08-17 17:45 | DRG 446 ==
LOC: F3E 14:30
PROVIDERS: ADMIT Internal Medicine; ATTEND Internal Medicine
PROC: 0FC58ZZ Extirpation of Matter from Right Hepatic Duct, Via Natural or Artificial Opening Endoscopic (ICD-10-PCS; principal; 2018-08-15 16:15)
PROC: 0F758DZ Dilation of Right Hepatic Duct with Intraluminal Device, Via Natural or Artificial Opening Endoscopic (ICD-10-PCS; principal; 2018-08-15 16:15)
PROC: 0F768DZ Dilation of Left Hepatic Duct with Intraluminal Device, Via Natural or Artificial Opening Endoscopic (ICD-10-PCS; principal; 2018-08-15 16:15)
PROC: 0FC68ZZ Extirpation of Matter from Left Hepatic Duct, Via Natural or Artificial Opening Endoscopic (ICD-10-PCS; principal; 2018-08-15 16:15)
PROC: 0FC78ZZ Extirpation of Matter from Common Hepatic Duct, Via Natural or Artificial Opening Endoscopic (ICD-10-PCS; principal; 2018-08-15 16:15)
PROC: 0FB78ZX Excision of Common Hepatic Duct, Via Natural or Artificial Opening Endoscopic, Diagnostic (ICD-10-PCS; principal; 2018-08-15 16:15)
PROC: 0DB78ZX Excision of Stomach, Pylorus, Via Natural or Artificial Opening Endoscopic, Diagnostic (ICD-10-PCS; principal; 2018-08-15 16:15)
DX: K83.1 Obstruction of bile duct (principal); F89 Unspecified disorder of psychological development; E78.00 Pure hypercholesterolemia, unspecified; G40.909 Epilepsy, unspecified, not intractable, without status epilepticus; I10 Essential (primary) hypertension; E66.9 Obesity, unspecified; D64.9 Anemia, unspecified
CPT/HCPCS: 86255-90; A9585; C1769; C2625; G0472; G0480; J1100; J2405; J2704; J3010; Q9961; Q9967

== ENCOUNTER 2018-08-28 23:50 | Emergency (ER) | payer OTHER, MEDICAID ==
[2018-08-29 01:00] LABS: PLATELET COUNT 256 10^3/uL (150-400)
[2018-08-29] MEDS ORDERED: LORazepam 2 MG/ML INJ ONE (01:01)
[2018-08-29] MEDS ORDERED: LORazepam 1 MG TAB PO ONE (01:02)
[2018-08-29 01:05] LABS: INR 1.01 (0.83-1.16); PROTIME(PATIENT) 12.9 SEC (12.0-15.0)
--- NOTE | 2018-08-29 02:20 | EDPHY ---
H & P Stated Complaint: AMS, Found down at [facility], slow to mentate Time Seen by Provider: 08/28/18 23:52 HPI/ROS: Chief Complaint: Found down HPI: 63-year-old male with a history of developmental delay, seizure disorder and recent hepatic failure is being brought in by EMS from [facility] after being found down in the lobby. Patient seemed to be increasingly confused. This was unwitnessed. Staff there were concerned about the possibility of a head injury. He normally takes Keppra and Depakote and has intranasal Valium ordered. It is unclear whether he received his nighttime medications. Patient is scheduled to have further blood work done to evaluate his renal hepatic failure secondary to possible biliary stricture. He has had high ammonia levels but these have been declining recently. ROS: 10 systems were reviewed and were negative except those elements noted in the HPI. PMH: Developmental delay, seizure disorder, liver failure Social History: No smoking, no alcohol, no recreational drug use Family History: non-contributory Physical Exam: Gen: Awake, Alert, oriented to person, history of confusion but more so now than normal HEENT: Nose: no rhinorrhea Eyes: PERRLA, EOMI Mouth: Moist mucosa Neck: Supple, no JVD Chest: nontender, lungs clear to auscultation Heart: S1, S2 normal, no murmur Abd: Soft, non-tender, no guarding Back: no CVA tenderness, no midline tenderness Ext: no edema, non-tender Skin: no rash Neuro: CN II-XII intact, Sensation grossly intact, Strength 5/5 in bilateral upper and lower extremities - Personal History Current Tetanus Diphtheria and Acellular Pertussis (TDAP): Yes Tetanus Vaccine Date: 2012 - Medical/Surgical History Hx Asthma: No Hx Chronic Respiratory Disease: No Hx Diabetes: No Hx Cardiac Disease: No Hx Renal Disease: No Hx Cirrhosis: No Hx Alcoholism: No Hx HIV/AIDS: No Hx Splenectomy or Spleen Trauma: No Other PMH: PMH- epilepsy, HTN, expressive aphasia, developmental delay, sepsis, encephalopthy. PSH- appy - Social History Smoking Status: Never smoked Constitutional: Initial Vital Signs Temperature (C) 36.9 C 08/28/18 23:54 Heart Rate 77 08/28/18 23:54 Respiratory Rate 18 08/28/18 23:54 Blood Pressure 129/72 H 08/28/18 23:54 O2 Sat (%) 96 08/28/18 23:54 O2 Delivery Mode Room Air O2 (L/minute) 10 Allergies/Adverse Reactions: No Known Allergies Allergy (Unverified 08/29/18 02:13) Home Medications: Medication Instructions Recorded Phenytoin Sodium Extended 200 mg PO BID 04/06/12 [Dilantin (*)] Ibuprofen [Motrin (*)] 200 - 400 mg PO Q6 PRN 07/30/17 Loratadine [Claritin 10 mg] 10 mg PO DAILY PRN 07/30/17 Multivitamins [Multivitamin (*)] 1 each PO DAILY@0730 07/30/17 Acetaminophen [Tylenol 325mg (*)] 650 mg PO Q4HRS PRN tab 08/30/17 Cholecalciferol Vit D3 [Vitamin D3 50,000 unit PO TH 08/10/18 (*)] Citalopram [CeleXA 20 MG] 20 mg PO DAILY 08/10/18 Diazepam [DIASTAT ACUDIAL] 20 mg RC DAILY PRN 08/10/18 Lactulose 30 ml PO BID 08/10/18 Lisinopril 30 mg PO DAILY 08/10/18 risperiDONE [Risperdal 0.5mg (*)] 0.5 mg PO HS 08/10/18 Gabapentin [Neurontin 300 MG (*)] 600 mg PO TID cap 08/17/18 levETIRAcetam [Keppra 500 mg (*)] 1,000 mg PO BID tab 08/17/18 Medical Decision Making ED Course/Re-evaluation: 63-year-old male found down in a snf with concerns for possible head injury. No obvious trauma on exam. Patient was initially more confused but has improved. Symptoms likely secondary postictal. Will obtain CT head to rule out intracranial injury. CT head is negative. Patient did have a witnessed seizure here. He received IV Ativan. Again unclear as to when he received his last anticonvulsant doses. Patient recently discharged continued off the Depakote secondary to liver failure. Nursing staff at [facility] states he is continuing to get Dilantin. Will check a level. Dilantin level is 0. I have reviewed his medical records. Patient actually was taken off the Dilantin and Depakote because of his liver failure. He was placed on gabapentin 600 mg 3 times a day and his Keppra was increased to 1000 mg twice a day. Is unclear if these getting these. He is also recommended Ativan p.r.n. For breakthrough seizures. Patient is at his baseline. Plan I have discussed with Meagan, nurse practitioner on for [facility]. She will leave a note for med reconciliation with a snf staff in the morning. Patient is return to baseline. Will discharge back to his facility. - Data Points Laboratory Results: Laboratory Results 08/29/18 00:14 08/29/18 00:14 08/29/18 08/29/18 08/29/18 00:14 00:14 00:14 WBC 12.11 10^3/uL H 10^3/uL (3.80-9.50) RBC 3.19 10^6/uL L 10^6/uL (4.40-6.38) Hgb 10.6 g/dL L g/dL (13.7-17.5) Hct 31.7 % L % (40.0-51.0) MCV 99.4 fL fL (81.5-99.8) MCH 33.2 pg pg (27.9-34.1) MCHC 33.4 g/dL g/dL (32.4-36.7) RDW 18.0 % H % (11.5-15.2) Plt Count 256 10^3/uL 10^3/uL (150-400) MPV 13.4 fL H fL (8.7-11.7) Neut % (Auto) 59.7 % % (39.3-74.2) Lymph % (Auto) 30.1 % % (15.0-45.0) [place] % (Auto) 6.9 % % (4.5-13.0) Eos % (Auto) 1.8 % % (0.6-7.6) Baso % (Auto) 0.7 % % (0.3-1.7) Nucleat RBC Rel Count 0.0 % % (0.0-0.2) Absolute Neuts (auto) 7.21 10^3/uL H 10^3/uL (1.70-6.50) Absolute Lymphs (auto) 3.65 10^3/uL H 10^3/uL (1.00-3.00) Absolute Monos (auto) 0.84 10^3/uL H 10^3/uL (0.30-0.80) Absolute Eos (auto) 0.22 10^3/uL 10^3/uL (0.03-0.40) Absolute Basos (auto) 0.09 10^3/uL 10^3/uL (0.02-0.10) Absolute Nucleated RBC 0.00 10^3/uL 10^3/uL (0-0.01) Immature Gran % 0.8 % % (0.0-1.1) Immature Gran # 0.10 10^3/uL 10^3/uL (0.00-0.10) PT INR APTT Sodium Potassium Chloride Carbon Dioxide Anion Gap BUN Creatinine Estimated GFR Glucose Calcium Total Bilirubin Conjugated Bilirubin Unconjugated Bilirubin AST ALT Alkaline Phosphatase Ammonia Total Protein Albumin Lipase Phenytoin < 3.0 mcg/mL L mcg/mL (10.0-20.0) Valproic Acid Cancelled 08/29/18 08/29/18 08/29/18 00:14 00:14 00:14 WBC RBC Hgb Hct MCV MCH MCHC RDW Plt Count MPV Neut % (Auto) Lymph % (Auto) [place] % (Auto) Eos % (Auto) Baso % (Auto) Nucleat RBC Rel Count Absolute Neuts (auto) Absolute Lymphs (auto) Absolute Monos (auto) Absolute Eos (auto) Absolute Basos (auto) Absolute Nucleated RBC Immature Gran % Immature Gran # PT 12.9 SEC SEC (12.0-15.0) INR 1.01 (0.83-1.16) APTT 27.8 SEC SEC (23.0-38.0) Sodium 137 mEq/L mEq/L (135-145) Potassium 3.9 mEq/L mEq/L (3.5-5.2) Chloride 106 mEq/L mEq/L (97-110) Carbon Dioxide 21 mEq/l L mEq/l (22-31) Anion Gap 10 mEq/L mEq/L (6-14) BUN 9 mg/dL mg/dL (7-23) Creatinine 0.7 mg/dL mg/dL (0.7-1.3) Estimated GFR > 60 Glucose 115 mg/dL H mg/dL (70-100) Calcium 9.0 mg/dL mg/dL (8.5-10.4) Total Bilirubin 2.9 mg/dL H mg/dL (0.1-1.4) Conjugated Bilirubin 2.4 mg/dL H mg/dL (0.0-0.5) Unconjugated Bilirubin 0.5 mg/dL mg/dL (0.0-1.1) AST 50 IU/L IU/L (17-59) ALT 72 IU/L IU/L (21-72) Alkaline Phosphatase 180 IU/L H IU/L (38-126) Ammonia 18.0 uMOL/L uMOL/L (9.0-30.0) Total Protein 7.1 g/dL g/dL (6.3-8.2) Albumin 3.6 g/dL g/dL (3.5-5.0) Lipase 549 IU/L H IU/L (23-300) Phenytoin Valproic Acid Medications Given: Discontinued Medications Phenytoin Sodium 1,000 mg/ (Sodium Chloride) 120 mls @ 144 mls/hr IV ONCE ONE Stop: 08/29/18 03:52 Last Admin: 08/29/18 03:32 Dose: 120 mls Lorazepam (Ativan) 2 mg PO EDNOW ONE Stop: 08/29/18 01:03 Last Admin: 08/29/18 01:04 Dose: 2 mg Departure - Departure Disposition: Home, Routine, Self-Care Clinical Impression: Seizure Condition: Good Instructions: Epilepsy (ED) Additional Instructions: The patient should continue taking his gabapentin 600 mg 3 times a day and his Keppra 1000 mg twice a day. If he has any breakthrough seizures he is to be given Valium intranasal spray as needed. Follow-up with his primary care provider in 1-2 days for further evaluation. Return to the emergency department for persisting seizures despite [facility]. Referrals: SAMUEL CÁRDENAS [Primary Care Provider] - As per Instructions
[2018-08-29] MEDS ORDERED: PHENYTOIN SODIUM 1,000 MG in NS 100 ML IV ONE (03:03)
[2018-08-29 04:57] VITALS: BP 132/76
== END 2018-08-29 04:58 | disposition home or self-care (01) ==
LOC: EDUNIT#
DX: G40.909 Epilepsy, unspecified, not intractable, without status epilepticus (principal); I10 Essential (primary) hypertension; R62.50 Unspecified lack of expected normal physiological development in childhood
CPT/HCPCS: 70450; 96365; 99285; J1165; J2060

== ENCOUNTER 2018-09-22 22:33 | Emergency (ER) | payer OTHER, MEDICAID ==
[2018-09-22] MEDS ORDERED: levETIRAcetam 1000MG/NACL 100 ML IV ONE (22:40)
[2018-09-22] MEDS ORDERED: NS 500 ML IV ONE (22:40)
--- NOTE | 2018-09-22 22:44 | EDPHY ---
H & P Stated Complaint: unwitnessed fall Time Seen by Provider: 09/22/18 22:37 HPI/ROS: HPI The patient presents with concern for possible seizure, fall, brought in by ambulance from [facility]. The patient has a history of seizure disorder as well as developmental delay. He has a recent history of hepatic failure and has started taking lactulose for this. He was last seen for a seizure about 25 days ago here after recent change in his seizure medication because of his hepatic failure. He is now taking gabapentin 600 3 times a day, Dilantin 200 mg twice a day, and Keppra 1000 twice a day. He cannot recall exactly what happened. Nurses rounded on him at approximately 9:30 p.m. And he was in his room painting. At about 10:00 p.m. They found him down lying on his left side on the floor of his room. He was complaining of left-sided head pain and left knee pain.. REVIEW OF SYSTEMS 10 systems were reviewed and negative with the exception of the elements mentioned in the history of present illness. 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 Soc Hx: Resides at [facility] PHYSICAL General Appearance: Alert, no distress Eyes: Pupils equal and round no pallor or injection ENT, Mouth: Left forehead with small abrasion, Mucous membranes moist Respiratory: There are no retractions, lungs are clear to auscultation Cardiovascular: Regular rate and rhythm Gastrointestinal: Abdomen is soft and non-tender, no masses, bowel sounds normal Neurological: A&O, moves all extremities Skin: Warm and dry, no rashes Musculoskeletal: Neck is supple non tender Extremities: symmetrical, full range of motion , left knee with small abrasion with full range of motion Psychiatric: Patient is oriented X 3, there is no agitation Source: Patient, EMS, Old records Exam Limitations: Clinical condition - Personal History Tetanus Vaccine Date: 2012 - Medical/Surgical History Hx Asthma: No Hx Chronic Respiratory Disease: No Hx Diabetes: No Hx Cardiac Disease: No Hx Renal Disease: No Hx Cirrhosis: No Hx Alcoholism: No Hx HIV/AIDS: No Hx Splenectomy or Spleen Trauma: No Other PMH: PMH- epilepsy, HTN, expressive aphasia, developmental delay, sepsis, encephalopthy. PSH- appy - Social History Smoking Status: Never smoked Constitutional: Initial Vital Signs Temperature (C) 37.0 C 09/22/18 22:37 Heart Rate 92 09/22/18 22:37 Respiratory Rate 18 09/22/18 22:37 Blood Pressure 115/84 H 09/22/18 22:37 O2 Sat (%) 94 09/22/18 22:37 O2 Delivery Mode Room Air Allergies/Adverse Reactions: No Known Allergies Allergy (Unverified 08/29/18 02:13) Home Medications: Medication Instructions Recorded Phenytoin Sodium Extended 200 mg PO BID 04/06/12 [Dilantin (*)] Ibuprofen [Motrin (*)] 200 - 400 mg PO Q6 PRN 07/30/17 Loratadine [Claritin 10 mg] 10 mg PO DAILY PRN 07/30/17 Multivitamins [Multivitamin (*)] 1 each PO DAILY@0730 07/30/17 Acetaminophen [Tylenol 325mg (*)] 650 mg PO Q4HRS PRN tab 08/30/17 Cholecalciferol Vit D3 [Vitamin D3 50,000 unit PO TH 08/10/18 (*)] Citalopram [CeleXA 20 MG] 20 mg PO DAILY 08/10/18 Diazepam [DIASTAT ACUDIAL] 20 mg RC DAILY PRN 08/10/18 Lactulose 30 ml PO BID 08/10/18 Lisinopril 30 mg PO DAILY 08/10/18 risperiDONE [Risperdal 0.5mg (*)] 0.5 mg PO HS 08/10/18 Gabapentin [Neurontin 300 MG (*)] 600 mg PO TID cap 08/17/18 levETIRAcetam [Keppra 500 mg (*)] 1,000 mg PO BID tab 08/17/18 Medical Decision Making - Diagnostics Imaging Results: CT head bilateral parieto-occipital scalp hyperdense soft tissue thickening consistent with sequelae of hematomas, not significantly changed when compared to prior, pronounced diffuse cerebellar and cerebral atrophy for age, not significantly changed, interpreted by direct Radiology. Differential Diagnosis: This is a 63-year-old male with history of developmental delay and seizure disorder who is a long-term resident of [facility] who presents brought in by ambulance for unwitnessed fall in his room tonight. He was last here earlier this month for a seizure. Nursing staff suspect seizure tonight, however this was unwitnessed. Patient is somewhat sedate now though is oriented. He is complaining of left-sided head pain and left knee pain. Because of his recent diagnosis of hepatic failure related to this common hepatic duct stricture he has had medication adjustments of his antiepileptic drugs and no longer takes Depakote though is taking Dilantin, Keppra and gabapentin. This change in medications may be leading to more frequent seizures. Here, his labs were checked and were unremarkable except for low Dilantin level. Because of this he was given a partial load of Dilantin [address] head was unchanged from prior. He became more awake and alert and felt comfortable going home. He will be discharged. - Data Points Laboratory Results: Laboratory Results 09/22/18 22:40 09/22/18 22:40 09/22/18 09/22/18 09/22/18 23:30 22:40 22:40 WBC 9.71 10^3/uL H 10^3/uL (3.80-9.50) RBC 3.42 10^6/uL L 10^6/uL (4.40-6.38) Hgb 11.5 g/dL L g/dL (13.7-17.5) Hct 34.8 % L % (40.0-51.0) MCV 101.8 fL H fL (81.5-99.8) MCH 33.6 pg pg (27.9-34.1) MCHC 33.0 g/dL g/dL (32.4-36.7) RDW 14.4 % % (11.5-15.2) Plt Count 242 10^3/uL 10^3/uL (150-400) MPV 12.7 fL H fL (8.7-11.7) Neut % (Auto) 51.5 % % (39.3-74.2) Lymph % (Auto) 39.2 % % (15.0-45.0) [place] % (Auto) 7.4 % % (4.5-13.0) Eos % (Auto) 1.1 % % (0.6-7.6) Baso % (Auto) 0.4 % % (0.3-1.7) Nucleat RBC Rel Count 0.0 % % (0.0-0.2) Absolute Neuts (auto) 4.99 10^3/uL 10^3/uL (1.70-6.50) Absolute Lymphs (auto) 3.81 10^3/uL H 10^3/uL (1.00-3.00) Absolute Monos (auto) 0.72 10^3/uL 10^3/uL (0.30-0.80) Absolute Eos (auto) 0.11 10^3/uL 10^3/uL (0.03-0.40) Absolute Basos (auto) 0.04 10^3/uL 10^3/uL (0.02-0.10) Absolute Nucleated RBC 0.00 10^3/uL 10^3/uL (0-0.01) Immature Gran % 0.4 % % (0.0-1.1) Immature Gran # 0.04 10^3/uL 10^3/uL (0.00-0.10) Sodium 140 mEq/L mEq/L (135-145) Potassium 3.9 mEq/L mEq/L (3.5-5.2) Chloride 107 mEq/L mEq/L (97-110) Carbon Dioxide 20 mEq/l L mEq/l (22-31) Anion Gap 13 mEq/L mEq/L (6-14) BUN 10 mg/dL mg/dL (7-23) Creatinine 0.7 mg/dL mg/dL (0.7-1.3) Estimated GFR > 60 Glucose 111 mg/dL H mg/dL (70-100) Calcium 9.4 mg/dL mg/dL (8.5-10.4) Total Bilirubin 1.0 mg/dL mg/dL (0.1-1.4) AST 29 IU/L IU/L (17-59) ALT 49 IU/L IU/L (21-72) Alkaline Phosphatase 104 IU/L IU/L (38-126) Ammonia 11.0 uMOL/L uMOL/L (9.0-30.0) Total Protein 7.1 g/dL g/dL (6.3-8.2) Albumin 4.1 g/dL g/dL (3.5-5.0) Phenytoin 6.5 mcg/mL L mcg/mL (10.0-20.0) Medications Given: Discontinued Medications Sodium Chloride (Ns) 500 mls @ 1,000 mls/hr IV EDNOW ONE PRN Reason: Protocol Stop: 09/22/18 23:09 Last Admin: 09/22/18 23:03 Dose: 500 mls Levetiracetam (Keppra (Premix)) 100 mls @ 400 mls/hr IV EDNOW ONE Stop: 09/22/18 22:54 Last Admin: 09/22/18 23:02 Dose: 100 mls Phenytoin Sodium (Dilantin) 500 mg PO EDNOW ONE Stop: 09/23/18 01:16 Last Admin: 09/23/18 01:32 Dose: 500 mg Departure - Departure Disposition: Home, Routine, Self-Care Clinical Impression: Seizure disorder, UNWITNESSED FALL, Subtherapeutic serum phenytoin level Condition: Good Instructions: Recurrent Seizures in Adults (ED) Additional Instructions: I suspect the fall tonight was due to a seizure. We found that his Dilantin level was low. You may need to increase the dose. His liver tests were all normal. CT scan of his head was normal. Referrals: ROSA CHUNG [Other] - As per Instructions
[2018-09-22 23:28] LABS: PLATELET COUNT 242 10^3/uL (150-400)
[2018-09-23] MEDS ORDERED: PHENYTOIN 100 MG/4 ML UDL PO ONE (00:43)
[2018-09-23] MEDS ORDERED: PHENYTOIN SODIUM EXTENDED 100 MG CAP PO ONE (01:15)
[2018-09-23 02:00] VITALS: BP 137/85
== END 2018-09-23 02:00 | disposition home or self-care (01) ==
LOC: EDUNIT#
DX: G40.909 Epilepsy, unspecified, not intractable, without status epilepticus (principal); R89.2 Abnormal level of other drugs, medicaments and biological substances in specimens from other organs, systems and tissues; E86.9 Volume depletion, unspecified
CPT/HCPCS: 70450; 96374; 99285; J1953

== ENCOUNTER 2018-11-13 03:38 | Emergency (ER) | payer MEDICAID, OTHER | END 2018-11-13 07:57 | disposition home or self-care (01) ==